=== PATIENT | male | born 1960 | race Caucasian/White ===

== ENCOUNTER 2021-02-20 08:06 | Emergency (ER) | payer OTHER ==
[2021-02-20 08:13] VITALS: TEMP 97.9
[2021-02-20] MEDS ORDERED: ORPHENADRINE 30 MG/ML 2 ML VIAL IVP STA (09:11)
[2021-02-20] MEDS ORDERED: KETOROLAC 15 MG/ML 1 ML VIAL IVP STA (09:11)
--- NOTE | 2021-02-20 09:12 | ED ---
Extremity Problem HPI - General Chief complaint: Extremity Problem,Nontraumatic Stated complaint: shoulder & arm pain Time Seen by Provider: 02/20/21 08:20 Source: patient, RN notes reviewed Mode of arrival: ambulatory Limitations: no limitations - History of Present Illness Initial comments: 60-year-old male presents emergency from chief complaint of neck pain, shoulder pain, back pain. Patient states that started with pain in his left shoulder after lifting something in October. Patient states is more in his scapular region states that radiate towards his neck. Patient states he's gone several chiropractors and appointments along with multiple massages with no relief of symptoms. Patient states that it seems to come and go. Patient states he started noticing further joint aches especially in his knees hips region. Patient states just about some left leg radicular symptoms. Denies any bowel, bladder incontinence or retention of abdominal pain. He states that he is also had some weight loss which is been unintentional last year. He has no abdominal complaints no dysuria no hematuria patient does not see PCP has not had any recent lab work. No chest pain or shortness of breath. - Related Data Previous Rx's Medication Instructions Recorded metFORMIN HCL [Glucophage] 500 mg PO BID #30 tab 02/20/21 Allergies Allergy/AdvReac Type Severity Reaction Status Date / Time azithromycin Allergy Nausea & Verified 02/20/21 08:56 Vomiting Review of Systems ROS Statement: Those systems with pertinent positive or pertinent negative responses have been documented in the HPI. ROS Other: All systems not noted in ROS Statement are negative. Past Medical History Past Medical History: No Reported History History of Any Multi-Drug Resistant Organisms: None Reported Past Surgical History: No Surgical Hx Reported Past Psychological History: No Psychological Hx Reported Smoking Status: Never smoker Past Alcohol Use History: None Reported Past Drug Use History: None Reported General Exam Limitations: no limitations General appearance: alert, in no apparent distress Head exam: Present: atraumatic, normocephalic, normal inspection Eye exam: Present: normal appearance, PERRL, EOMI. Absent: scleral icterus, conjunctival injection, periorbital swelling ENT exam: Present: normal exam, normal oropharynx, mucous membranes moist Neck exam: Present: normal inspection, tenderness (Left paraspinal, trapezius), full ROM. Absent: meningismus, lymphadenopathy Respiratory exam: Present: normal lung sounds bilaterally. Absent: respiratory distress, wheezes, rales, rhonchi, stridor Cardiovascular Exam: Present: regular rate, normal rhythm, normal heart sounds. Absent: systolic murmur, diastolic murmur, rubs, gallop, clicks GI/Abdominal exam: Present: soft, normal bowel sounds. Absent: distended, tenderness, guarding, rebound, rigid Extremities exam: Present: normal inspection, full ROM, normal capillary refill. Absent: tenderness, pedal edema, joint swelling, calf tenderness Back exam: Present: full ROM, tenderness, paraspinal tenderness. Absent: vertebral tenderness Neurological exam: Present: alert, oriented X3, CN II-XII intact, reflexes normal. Absent: motor sensory deficit Skin exam: Present: warm, dry, intact, normal color. Absent: rash Course Vital Signs 02/20/21 02/20/21 08:10 09:33 Temperature 97.9 F Pulse Rate 95 93 Respiratory 16 18 Rate Blood Pressure 181/102 173/93 O2 Sat by Pulse 97 98 Oximetry Medical Decision Making - Medical Decision Making 60-year-old male presented for shoulder neck discomfort. Patient has degenerative changes of the cervical spine and lumbar spine. Patient's found to be new-onset diabetes was started on metformin will follow-up with Dr. Dozier has requested we given Tylenol codeine for 3 days for pain control return parameters were discussed. - Lab Data Result diagrams: 02/20/21 08:53 02/20/21 08:53 Lab Results 02/20/21 02/20/21 Range/Units 08:53 08:53 WBC 6.7 (3.8-10.6) k/uL RBC 5.54 (4.30-5.90) m/uL Hgb 16.8 (13.0-17.5) gm/dL Hct 49.3 (39.0-53.0) % MCV 88.9 (80.0-100.0) fL MCH 30.4 (25.0-35.0) pg MCHC 34.1 (31.0-37.0) g/dL RDW 12.4 (11.5-15.5) % Plt Count 290 (150-450) k/uL MPV 6.5 Neutrophils % 58 % Lymphocytes % 26 % Monocytes % 9 % Eosinophils % 4 % Basophils % 1 % Neutrophils # 3.9 (1.3-7.7) k/uL Lymphocytes # 1.8 (1.0-4.8) k/uL Monocytes # 0.6 (0-1.0) k/uL Eosinophils # 0.3 (0-0.7) k/uL Basophils # 0.1 (0-0.2) k/uL Manual Slide Review Performed Sodium 133 L (137-145) mmol/L Potassium 4.4 (3.5-5.1) mmol/L Chloride 95 L (98-107) mmol/L Carbon Dioxide 29 (22-30) mmol/L Anion Gap 9 mmol/L BUN 13 (9-20) mg/dL Creatinine 0.68 (0.66-1.25) mg/dL Est GFR (CKD-EPI)AfAm >90 (>60 ml/min/1.73 sqM) Est GFR (CKD-EPI)NonAf >90 (>60 ml/min/1.73 sqM) Glucose 343 H (74-99) mg/dL Calcium 10.1 (8.4-10.2) mg/dL Total Bilirubin 1.8 H (0.2-1.3) mg/dL AST 24 (17-59) U/L ALT 24 (4-49) U/L Alkaline Phosphatase 63 (38-126) U/L Total Protein 7.5 (6.3-8.2) g/dL Albumin 5.0 (3.5-5.0) g/dL Lipase 101 (23-300) U/L Disposition Clinical Impression: Cervical radiculopathy, New onset type 2 diabetes mellitus, Hyperglycemia Disposition: HOME SELF-CARE Condition: Stable Instructions (If sedation given, give patient instructions): Type 2 Diabetes in Adults: New Diagnosis (ED), Basic Carbohydrate Counting (DC) Additional Instructions: Please return to the Emergency Department if symptoms worsen or any other concerns. Prescriptions: metFORMIN HCL [Glucophage] 500 mg PO BID #30 tab Is patient prescribed a controlled substance at d/c from ED?: No Referrals: Pedro Dozier MD [STAFF PHYSICIAN] - 1-2 days Rasta Birmingham DO [Doctor of Osteopathic Medicine] - 1-2 days Time of Disposition: 10:11
[2021-02-20 09:15] LABS: Basophils # (A) 0.1 k/uL (0-0.2); Basophils % (A) 1 %; Eosinophils # (A) 0.3 k/uL (0-0.7); Eosinophils % (A) 4 %; HCT 49.3 % (39.0-53.0); HGB 16.8 gm/dL (13.0-17.5); Lymphocytes # (A) 1.8 k/uL (1.0-4.8); Lymphocytes % (A) 26 %; MCH 30.4 pg (25.0-35.0); MCHC 34.1 g/dL (31.0-37.0); MCV 88.9 fL (80.0-100.0); Mean Platelet Volume 6.5; Monocytes # (A) 0.6 k/uL (0-1.0); Monocytes % (A) 9 %; Neutrophils # (A) 3.9 k/uL (1.3-7.7); Neutrophils % (A) 58 %; Platelet Count 290 k/uL (150-450); RBC 5.54 m/uL (4.30-5.90); RDW 12.4 % (11.5-15.5); WBC 6.7 k/uL (3.8-10.6)
--- NOTE | 2021-02-20 09:21 | CT ---
EXAMINATION TYPE: CT cervical spine wo con DATE OF EXAM: 02/20/2021 COMPARISON: None HISTORY: Lt sided neck shoulder pain traveling down leg, no known injury CT DLP: 522.4 mGycm CONTRAST: None CT of the cervical spine is performed in the axial plane at 2 mm thick sections. Reconstructed image s in the coronal, and sagittal plane are reviewed on the computer. No acute fractures are evident. Vertebral body alignment is normal. Degenerative disc change with loss of disc height is present C6-7. Mild diffuse narrowing to the ilana ining disc levels may be present to a minimal degree. Vertebral body heights are preserved. No spinal canal stenosis is evident Mild uncovertebral joint hypertrophy is present C3-4 with mild foraminal narrowing. IMPRESSIONS: 1. Mild uncovertebral joint hypertrophy with mild foraminal narrowing C3-4. 2. Mild diffuse loss disc height most noticeable at C6-7.
[2021-02-20 09:28] LABS: ALT 24 U/L (4-49); AST 24 U/L (17-59); African American GFR (CKD) >90 (>60 ml/min/1.73 sqM); Alkaline Phosphatase 63 U/L (38-126); Anion Gap 9 mmol/L; Blood Urea Nitrogen 13 mg/dL (9-20); Calcium 10.1 mg/dL (8.4-10.2); Carbon Dioxide 29 mmol/L (22-30); Chloride 95 mmol/L (98-107); Glucose 343 mg/dL (74-99); Lipase 101 U/L (23-300); Non-African American GFR(CKD) >90 (>60 ml/min/1.73 sqM); Potassium 4.4 mmol/L (3.5-5.1); Sodium 133 mmol/L (137-145); Total Bilirubin 1.8 mg/dL (0.2-1.3); Total Protein 7.5 g/dL (6.3-8.2)
[2021-02-20 09:34] VITALS: RESP 18
--- NOTE | 2021-02-20 09:35 | XR ---
Obstetricald EXAMINATION TYPE: XR lumbosacral spine min 4V DATE OF EXAM: 02/20/2021 CLINICAL HISTORY: pain COMPARISON: NONE TECHNIQUE: Frontal, lateral, and oblique images of the lumbar spine are obtained. FINDINGS: Grade 1 anterolisthesis L5 on S1 measuring 6.6 mm. Bilateral spondylolysis noted at this level. Moder ate degenerative disc space narrowing. Mild degenerative narrowing at L4-5 and L3-4 as well. No compr ession fracture seen. Scattered spondylosis noted. IMPRESSION: Grade 1 anterolisthesis with spondylolysis at L5-S1.
[2021-02-20] MEDS ORDERED: metFORMIN 500 MG TAB PO STA (10:03)
[2021-02-20] MEDS ORDERED: ACET/COD 300 MG/30 MG STARTER PACK 6 TAB BTL PO STA (10:03)
[2021-02-20] MEDS ORDERED: INSULIN REGULAR 100 UNIT/ML VIAL (IV) IV ONE (10:04)
[2021-02-20 10:19] LABS: Glucose,Whole Blood 279 mg/dL (75-99)
[2021-02-20 10:22] VITALS: BP 158/95; PULSE 70
== END 2021-02-20 10:28 | disposition home or self-care (01) ==
LOC: EC 08:06
DX: M54.12 Radiculopathy, cervical region (principal); E11.65 Type 2 diabetes mellitus with hyperglycemia; Z88.1 Allergy status to other antibiotic agents
CPT/HCPCS: 36415; 80053; 83690; 85025; 86618; 72110; 72125; 99284; 96374; 96375; J2360; J1885

== ENCOUNTER 2024-03-18 18:34 | Inpatient (IN) | payer OTHER ==
[2024-03-19] MEDS ORDERED: TEMAZEPAM 15 MG CAP ONE ×2 (00:38→20:17)
[2024-03-19] MEDS ORDERED: SODIUM CHLORIDE 0.9% 1,000 ML BAG ONE ×3 (08:00→09:30)
[2024-03-19] MEDS ORDERED: MUPIROCIN 2% OINT 22 GM TUBE ONE (08:00)
[2024-03-19] MEDS ORDERED: ATORVASTATIN 80 MG TAB ONE (08:31)
[2024-03-19] MEDS ORDERED: ASPIRIN 325 MG TAB ONE (08:32)
[2024-03-19] MEDS ORDERED: HEPARIN SODIUM 1,000 UN/ML (10ML VL) ONE ×2 (09:17→22:12)
[2024-03-19] MEDS ORDERED: MIDAZOLAM 2 MG/2 ML VIAL ONE (09:17)
[2024-03-19] MEDS ORDERED: fentaNYL (PF) 50 MCG/ML 2 ML AMP ONE (09:17)
[2024-03-19] MEDS ORDERED: HEPARIN SODIUM,PORCINE 10,000 UNIT/ML 1 ML VIAL ONE (09:30)
[2024-03-19] MEDS ORDERED: VERAPAMIL 2.5 MG/ML 4 ML VIAL ONE (09:36)
[2024-03-19] MEDS ORDERED: LIDOCAINE 1% INJ 10MG/ML (20 ML MDV) ONE (09:36)
[2024-03-19] MEDS ORDERED: SODIUM CHLORIDE 0.9% 250 ML BAG ONE (09:36)
[2024-03-19] MEDS ORDERED: HEPARIN SODIUM,PORCINE 5,000 UNIT/ML 1 ML VIAL ONE (09:36)
[2024-03-19] MEDS: IOPAMIDOL-370 100ML BTL INJ ONE (09:48)
[2024-03-19] MEDS ORDERED: METOPROLOL TARTRATE 25 MG TAB ONE ×2 (13:58→20:17)
[2024-03-19] MEDS ORDERED: HEPARIN SOD,PORK IN 0.45% NACL 250 ML IV ONE (13:58)
[2024-03-19] MEDS ORDERED: ATORVASTATIN 40 MG TAB ONE (20:17)
[2024-03-20] MEDS ORDERED: ASPIRIN 81 MG ONE (09:31)
[2024-03-20] MEDS ORDERED: METOPROLOL TARTRATE 25 MG TAB ONE ×2 (09:31→20:46)
[2024-03-20] MEDS ORDERED: HEPARIN SOD,PORK IN 0.45% NACL 250 ML IV ONE (09:38)
[2024-03-20] MEDS ORDERED: TEMAZEPAM 15 MG CAP ONE (20:46)
[2024-03-20] MEDS ORDERED: SODIUM CHLORIDE 0.9% 1,000 ML BAG ONE (23:59)
[2024-03-21] MEDS ORDERED: HEPARIN SODIUM 1,000 UN/ML (10ML VL) IV PRN
[2024-03-21] MEDS ORDERED: SENNOSIDES 8.6 MG TAB PO PRN
[2024-03-21 04:57] LABS: Glucose,Whole Blood 101 mg/dL (70-110)
[2024-03-21] MEDS ORDERED: PROTAMINE SULFATE 10 MG/ML 25 ML VIAL IV ONE (05:00)
[2024-03-21] MEDS ORDERED: HEPARIN SODIUM 1,000 UN/ML (10ML VL) IV ONE (05:00)
[2024-03-21] MEDS ORDERED: CLEVIDIPINE BUTYRATE 25 MG in EMPTY BAG 1 BAG IV ONE (05:00)
[2024-03-21] MEDS ORDERED: SODIUM BICARB 8.4% 50 ML SYR (1 MEQ/ML) IV ONE (05:00)
[2024-03-21] MEDS ORDERED: PHENYLEPHRINE 10 MG/ML VIAL IV ONE (05:00)
[2024-03-21] MEDS ORDERED: PHENYLEPHRINE 40 MG in SODIUM CHLORIDE 0.9% 250 ML IV ONE (05:00)
[2024-03-21] MEDS ORDERED: ALBUMIN HUMAN 5% 500 ML IVPB ONE (05:00)
[2024-03-21] MEDS ORDERED: propofoL 1,000 MG/100 ML VIAL IV ONE (05:00)
[2024-03-21] MEDS ORDERED: CARDIOPLEGIC SOLN (K+ 16 MEQ/L 1,000 ML with SODIUM BICARB (1 MEQ/ML) 20 ML, LIDOCAINE ... PERFUSION ONE (05:00)
[2024-03-21] MEDS ORDERED: NITROGLYCERIN SL TABS 0.4 MG TAB SUBLINGUAL ONE (05:00)
[2024-03-21] MEDS ORDERED: PROTAMINE SULFATE 250 MG in EMPTY BAG 1 BAG IV ONE (05:00)
[2024-03-21] MEDS ORDERED: MAGNESIUM SULFATE 16.24 MEQ in EMPTY SYRINGE 1 SYR IV ONE (05:00)
[2024-03-21] MEDS ORDERED: LACTATED RINGERS 1,000 ML IV ONE (05:00)
[2024-03-21] MEDS ORDERED: TRANEXAMIC ACID 2,000 MG in SODIUM CHLORIDE 0.9% 80 ML IV ONE (05:00)
[2024-03-21] MEDS ORDERED: NOREPINEPHRINE 4 MG in SODIUM CHLORIDE 0.9% 250 ML IV ONE (05:00)
[2024-03-21] MEDS ORDERED: NITROGLYCERIN-D5W PMX 25 MG/250 ML BTL IV ONE (05:00)
[2024-03-21] MEDS ORDERED: ALBUMIN HUMAN 25% 50 ML IV ONE (05:00)
[2024-03-21] MEDS ORDERED: INSULIN REGULAR 100 UNIT in SODIUM CHLORIDE 0.9% 100 ML IV ONE (05:00)
[2024-03-21] MEDS ORDERED: NITROGLYCERIN-D5W PMX 50 MG in DEXTROSE/WATER 1 250ML.BAG IV ONE (05:00)
[2024-03-21] MEDS ORDERED: SODIUM CHLORIDE 0.9% 1,000 ML IV ONE (05:00)
[2024-03-21] MEDS ORDERED: CHLORHEXIDINE GLUCONATE 15 ML CUP MUCOUS MEM ONE (05:00)
[2024-03-21] MEDS ORDERED: CALCIUM CHLORIDE 100 MG/ML 10 ML SYRINGE IV ONE (05:00)
[2024-03-21] MEDS ORDERED: MANNITOL 25% 12.5 GM/50 ML VIAL IV ONE (05:00)
[2024-03-21] MEDS: METOPROLOL TARTRATE 12.5 MG TAB PO ONE (05:06)
[2024-03-21] MEDS: ASPIRIN 325 MG TAB PO ONE (05:06)
[2024-03-21] MEDS: ATORVASTATIN 10 MG TAB PO ONE (05:06)
[2024-03-21] MEDS: SODIUM CHLORIDE 0.9% 1,000 ML IV SCH ×2 (05:07→13:20)
[2024-03-21] MEDS: HEPARIN SOD,PORK IN 0.45% NACL 25,000 UNIT in 0.45% NACL 1 250ML.BAG IV SCH (05:25)
[2024-03-21] MEDS: INSULIN ASPART (NovoLOG) 100 UNIT/ML VIAL SQ SCH (05:27)
[2024-03-21] MEDS: ASPIRIN 81 MG PO SCH (05:28)
[2024-03-21] MEDS: METOPROLOL TARTRATE 25 MG TAB PO SCH (05:28)
[2024-03-21] MEDS: MUPIROCIN 2% OINT 22 GM TUBE NASAL SCH ×2 (05:45→21:18)
[2024-03-21] MEDS ORDERED: LACTATED RINGERS 1,000 ML BAG ONE ×2 (08:15)
[2024-03-21] MEDS ORDERED: SODIUM CHLORIDE 0.9% 50 ML BAG ONE (08:15)
[2024-03-21] MEDS ORDERED: ceFAZolin 10 GM VIAL IVPB ONE (08:15)
--- NOTE | 2024-03-21 08:47 | P.ANPRN ---
Procedure Note - Anesthesia - Invasive Line Right Arterial Line Time Out Performed: Yes Date of Procedure: 03/21/24 Time of Procedure: 07:30 Location of Patient: PreOp Preparation: Sterile Prep Arterial Line Location: Radial Ultrasound Used: No Narrative: Invasive line placement per sterile protocol utilized by GOVERNMENT PROPERTY INSPECTOR Right Central Line Time Out Performed: Yes Date of Procedure: 03/21/24 Time of Procedure: 07:30 Location of Patient: PreOp Preparation: Sterile Prep, Sterile Dressing Central Line Location: Internal Jugular Ultrasound Used: Yes Purpose - Visualization and Identification of Vasculature: Yes Needle Guage: 18 Image Stored and Saved: Yes Narrative: Invasive line placement per sterile protocol utilized. Seldinger technique Right [place] Jim Time Out Performed: Yes Date of Procedure: 03/21/24 Time of Procedure: 07:45 Location of Patient: PreOp Preparation: Sterile Prep, Sterile Dressing [place] Jim Line Location: Internal Jugular Ultrasound Used: No Narrative: All ports flushed and balloon tested. [place] advanced until RV and then PA waveforms obtained. Balloon deflated and [place] secured at 45 cm
[2024-03-21] MEDS: PAPAVERINE 360 MG in SODIUM CHLORIDE 0.9% 90 ML IV ONE (09:02)
[2024-03-21] MEDS: HEPARIN SODIUM,PORCINE (1 ML) 5,000 UNIT in SODIUM CHLORIDE 0.9% 500 ML 500 ML IV ONE (09:02)
[2024-03-21] MEDS: DILTIAZEM 125 MG in SODIUM CHLORIDE 0.9% 100 ML IV ONE (09:02)
[2024-03-21] MEDS: ceFAZolin 1,000 MG in SODIUM CHLORIDE 0.9% IRRIGATIO 1,000 ML IRRIGATION ONE (09:03)
--- NOTE | 2024-03-21 11:42 | P.ANPRN ---
Procedure Note - Anesthesia - SUMAYA Intraop Pre Bypass SUMAYA Intraop - Anesthesia Indication: CAD Date of Procedure: 03/21/24 Pre-operative Diagnosis: CAD Post-operative Diagnosis: Same Surgeon: Donald Kothari Left Ventricle: EF 45% Regional Wall Motion Abnormalities: Other (Inferior wall hypokinesis) Left Ventricle Hypertrophy: No R. Ventricle Function: Normal Anatomy: Trileaflet Aortic Stenosis: None Aortic Regurgitation: None Mitral Stenosis: None Mitral Regurgitation: None Tricuspid Stenosis: None Tricuspid Regurgitation: None Pulmonic Stenosis: None Pulmonic Regurgitation: None R. Atrial Dilation: No R. Atrial PFO: No L. Atrial Dilation: No Aortic Dissection: No Aortic Calcification: None Plural Effusion: None - SUMAYA Intraop Post Bypass SUMAYA Intraop Post Bypass Procedure Performed: OP CABG, LA appendage ligation Ejection Fraction: Normal Regional Wall Motion Abnormalities: Other (Inferior wall hypokinesis) R. Ventricle Function: Normal Aortic Valve: Unchanged Mitral Valve: Unchanged Tricuspid: Unchanged Pulmonic: Unchanged Aortic Dissection: No (LA appendage ligated)
--- NOTE | 2024-03-21 12:13 | P.OP ---
Date of Procedure: 03/21/24 Preoperative Diagnosis: Coronary artery disease, unstable angina Postoperative Diagnosis: Same Procedure(s) Performed: Off-pump CABG x 4 with LAWRENCE to LAD, sequential left radial artery to first and second obtuse marginal coronary arteries, SVG to PDA with endovascular left radial artery harvest and endovascular harvest of the left greater saphenous vein from the left thigh. Clip left atrial appendage 35 mm AtriCure clip Implants: 35 mm AtriCure clip Anesthesia: GETA Surgeon: Donald Kothari Utilities Operator #1: Manny Allan Utilities Operator #2: Cipriano Roman Estimated Blood Loss (ml): 300 IV fluids (ml): 2,000 Urine output (ml): 500 Pathology: none sent Condition: stable Disposition: ICU Indications for Procedure: 63-year-old male who gives a history of exertional dyspnea and fatigue lasting over a year and slowly worsening. He has also had significant fatigue in his lower extremities causing him to have to significantly decrease his activity. The symptoms have been worsening. He presented to the emergency department complaining of fatigue as well as feeling irregular heartbeats. He was noted to have multiple PVCs. He underwent cardiac catheterization demonstrating severe three-vessel coronary artery disease. Coronary artery bypass grafting was recommended by Dr. Cook. Informed consent was obtained and urgent surgery scheduled. Operative Findings: Saphenous vein, radial artery and internal mammary artery well are all excellent conduits. There was diffuse coronary disease present. Left ventricle had reasonable ejection fraction and it was relatively small in size with some inferior wall hypokinesis. This persisted following revascularization. Description of Procedure: Patient was brought to the operating room and placed supine on the operating table. General anesthesia was induced. Preoperative monitoring lines have been placed in the preoperative holding area. SUMAYA probe was placed. The anterior torso bilateral lower extremities and left upper extremity were sterilely prepped and draped. Left greater saphenous vein was harvested from the left thigh using endovascular vein harvest technique. Simultaneously, the left radial artery was harvested using endovascular technique. Both conduits were prepared on the back table. Simultaneous to the arm and leg conduit harvest a midline sternotomy was performed and the left hemisternum retracted upwards. The left internal mammary artery was harvested on a vascularized pedicle and left intact on its origin from the subclavian. It was divided distally. He had an excellent pulse. Left pleural space was drained with a 32 Danish chest tube. Standard sternal retractor was placed. The pericardium was opened in the midline. Heart was exposed with pericardial sutures. Patient was systemically heparinized and ACT is maintained greater than 250 during grafting. 35 mm AtriCure clip was applied to the base of the left atrial appendage. The LAWRENCE was tunneled into the pericardial space and the LAD was grafted in its midportion. The LAD was opened and blood flow controlled with a 2 mm flow- through. It was a 2 to 2-1/2 mm vessel. End-to-side anastomosis between the LAWRENCE and the LAD was performed with running 8-0 Prolene suture. On completion the anastomosis the flow through was removed effective probing the proximal distal portion of the anastomosis. Inflow was opened. The LAWRENCE lay well with excellent length and the poe filled out well with no kinking. VICTOR HUGO pedicle was tacked surrounding epicardium with 6-0 silk suture. The inferior wall of the heart was exposed. PDA was dissected out proximally. It was a 2 mm vessel of good quality. It was opened and blood flow controlled with a 2 mm flow-through. End-to-side anastomosis between saphenous vein and PDA was performed with running 7-0 Prolene suture. On completion of the anastomosis the flow through was removed effectively probing the proximal distal portion of the anastomosis. Suture was tied in good result and hemostasis was noted. Good backbleeding was noted to the first valve. Heart was lowered in anatomic position. The vein was cut to appropriate length to reach the ascending aorta. Heartstring device was deployed in the mid ascending aorta to the right of midline. Proximal anastomosis of the saphenous vein off the aorta was performed with running 5-0 Prolene suture. On completion anastomosis the heartstring device was removed and the suture tied with good result and hemostasis. The vein graft was de- aired with needle holes and then the inflow open. Next the lateral wall of the heart was exposed. First and second obtuse marginal coronary arteries were identified. The second was stabilized first. It was opened fairly proximally. It was a 1.5 to 1.75 mm vessel. It had some diffuse wall disease present. Blood flow was controlled with a 1.5 mm flow-through in the radial artery was anastomosed in end-to-side fashion with running 7-0 Prolene suture. On completion of the anastomosis the flow through was removed effectively probing the proximal distal portion of the anastomosis. Suture was tied with good result and hemostasis. A bulldog clamp was placed on the radial graft distally and the first obtuse marginal was stabilized and opened proximally. It was again a 1.75 mm vessel. It was had less wall disease than the second obtuse marginal coronary artery. Blood flow was controlled with a 1.5 mm flow-through. Dahf-mm-gtao anastomosis between the radial artery and the first obtuse dorothea nal was performed with running 7-0 Prolene suture. On completion of the anastomosis the flow through was removed effectively probing the proximal distal portion of the anastomosis. Suture was tied with good result and hemostasis. Heart was lowered in anatomic position. The radial artery was of sufficient length to reach the ascending aorta. It was trimmed appropriately and brought beneath the LAWRENCE. Second heartstring device was deployed in the mid ascending aorta to the left of midline. Second proximal anastomosis was constructed with running 5-0 Prolene suture. On completion of the anastomosis the heartstring was removed and the suture tied with good result and hemostasis. Inflow was opened to the radial artery graft. All distal anastomoses were checked and noted to be hemostatic. Heparin was reversed with protamine. Good hemostasis was obtained throughout. Chest was irrigated with antibiotic solution and drained with a 36 Danish chest tube. Sternum was closed with 8 sternal wires. Fascia was closed with 0 Ethibond. Subcutaneous and subcuticular layers and the arm leg and chest were all closed with layers of Vicryl suture. Skin glue and dry sterile dressings were applied and the patient was transferred to the ICU in stable condition. He required no inotropic support and no blood transfusions.
[2024-03-21 12:27] LABS: Glucose,Whole Blood 106 mg/dL (70-110)
[2024-03-21] MEDS ORDERED: DEXTROSE 50% SYRINGE 50 ML IVP PRN ×4 (12:42)
[2024-03-21] MEDS ORDERED: Magnesium Replacement Protocol 1 EACH MISC MISCELLANE PRN (12:42)
[2024-03-21] MEDS ORDERED: Phosphorus Replacement Protoco 1 EACH MISC MISCELLANE PRN (12:42)
[2024-03-21] MEDS ORDERED: IPRATROPIUM-ALBUTEROL 3 ML NEB INHALATION PRN (12:42)
[2024-03-21] MEDS ORDERED: AMIODARONE 360 MG in DEXTROSE 5% IN WATER 200 ML IV PRN (12:42)
[2024-03-21] MEDS ORDERED: CALCIUM GLUCONATE IN NACL 2 GM in SALINE 1 100ML.BAG IVPB PRN (12:42)
[2024-03-21] MEDS ORDERED: Potassium Replacement Protocol 1 EACH MISC MISCELLANE PRN (12:42)
[2024-03-21] MEDS ORDERED: DEXTROSE 5% IN WATER 100 ML with AMIODARONE 150 MG IV PRN (12:42)
[2024-03-21] MEDS ORDERED: BENZOCAINE/MENTHOL LOZENG 1 EACH LOZENGE MUCOUS MEM PRN (12:42)
[2024-03-21] MEDS ORDERED: METOCLOPRAMIDE 5 MG/ML 2 ML VIAL IVP PRN (12:42)
[2024-03-21] MEDS ORDERED: AMIODARONE 450 MG in DEXTROSE 5% IN WATER 250 ML IV PRN (12:42)
[2024-03-21 13:05] LABS: ABG Base Excess -0.2 mmol/L; ABG HCO3 25 mmol/L (21-25); ABG Oxygen Saturation 100.5 % (94-97); ABG PCO2 42 mmHg (35-45); ABG PH 7.38 (7.35-7.45); ABG PO2 366 mmHg (83-108); ABG TCO2 26 mmol/L (19-24); Allen Test Performed? Yes
[2024-03-21] MEDS: DEXMEDETOMIDINE/0.9% NACL(PMX) 400 MCG in EMPTY BAG 1 BAG IV SCH (13:05)
[2024-03-21] MEDS: NITROGLYCERIN-D5W PMX 50 MG in DEXTROSE/WATER 1 250ML.BAG IV SCH (13:13)
[2024-03-21 13:17] LABS: Basophils % (A) 0 %; Eosinophils # (A) 0.1 k/uL (0-0.7); Eosinophils % (A) 1 %; HCT 36.3 % (39.0-53.0); HGB 12.2 gm/dL (13.0-17.5); Lymphocytes # (A) 1.2 k/uL (1.0-4.8); Lymphocytes % (A) 11 %; MCH 30.5 pg (25.0-35.0); MCHC 33.7 g/dL (31.0-37.0); MCV 90.6 fL (80.0-100.0); Monocytes # (A) 0.8 k/uL (0-1.0); Monocytes % (A) 7 %; Neutrophils # (A) 9.2 k/uL (1.3-7.7); Neutrophils % (A) 81 %; Platelet Count 207 k/uL (150-450); RBC 4.01 m/uL (4.30-5.90); RDW 13.2 % (11.5-15.5); WBC 11.3 k/uL (3.8-10.6)
[2024-03-21 13:19] LABS: ALT 12 U/L (4-49); AST 22 U/L (17-59); African American GFR (CKD) >90 (>60 ml/min/1.73 sqM); Albumin 2.8 g/dL (3.5-5.0); Alkaline Phosphatase 46 U/L (38-126); Anion Gap 7 mmol/L; Blood Urea Nitrogen 14 mg/dL (9-20); Calcium 8.5 mg/dL (8.4-10.2); Carbon Dioxide 22 mmol/L (22-30); Chloride 107 mmol/L (98-107); Glucose 104 mg/dL (74-99); Magnesium 1.7 mg/dL (1.6-2.3); Non-African American GFR(CKD) >90 (>60 ml/min/1.73 sqM); Potassium 3.9 mmol/L (3.5-5.1); Sodium 136 mmol/L (137-145); Total Bilirubin 1.1 mg/dL (0.2-1.3); Total Protein 4.7 g/dL (6.3-8.2)
[2024-03-21] MEDS: ACETAMINOPHEN IV (For NPO) 1,000 MG in EMPTY BAG 1 BAG IVPB SCH (13:20)
[2024-03-21] MEDS: DILTIAZEM 125 MG in SODIUM CHLORIDE 0.9% 100 ML IV SCH (13:25)
[2024-03-21 13:29] LABS: INR 1.1 (<1.2); Prothrombin Time 12.2 sec (10.0-12.5)
--- NOTE | 2024-03-21 13:31 | P.PN ---
Subjective Progress Note Date: 03/21/24 The patient is seen today March 21, 2024 in follow-up in the intensive care unit. He is status post off-pump coronary artery bypass grafting x 4 with a LAWRENCE to the LAD, left radial artery sequential to the OM1 and OM 2, SVG to the PDA. He is intubated on the mechanical ventilator and assist-control mode at a rate of 14, tidal volume 500, FiO2 50% and a PEEP of 5. Arterial blood gases revealed a PaO2 of 366, pCO2 42 and a pH of 7.38 on 100% FiO2. He has a right IJ [place]-Jim catheter in place. Cardiac output 5.9. Cardiac index 2.8. PA pressure 23/16, CVP of 9. Chest x-ray reveals atelectatic changes in the bases. Mediastinal and left chest tubes are secured in place. He is currently on Pr ecedex at 0.4 mcg/kg/h. Propofol at 40 mcg/kg/min. Cardizem drip at 5 mg/h. Nitroglycerin drip at 5 mcg/min. Normal saline 0.9% at 50 mL/h. Heparin for DVT prophylaxis. White count 11.3. Hemoglobin 12.2. Platelets 207. Sodium 136. Potassium 3.9. Bicarb 22. BUN 14. Creatinine 0.68. Glucose 106. Objective - Vital Signs Vital signs: Vital Signs Temp 97.7 F 03/21/24 04:55 Pulse 62 03/21/24 04:55 Resp 18 03/21/24 04:55 BP 115/73 03/21/24 04:55 Pulse Ox 99 03/21/24 04:55 FiO2 50 03/21/24 13:09 Intake & Output 03/20/24 03/21/24 03/21/24 18:59 06:59 18:59 Intake Total 55.149 Output Total 700 Balance -644.851 Weight 87.997 kg 86.2 kg Intake: IV 54 Intake, IV Titration 1.149 Amount Dexmedetomidine/0.9% NaCl 1.149 (Pmx) 400 mcg In Empty Bag 1 bag @ Titrate IV . [facility] Rx#:[id number] Output: Urine 400 Estimated Blood Loss 300 - Exam GENERAL EXAM: Intubated, sedated 63-year-old male patient, comfortable in no apparent distress. HEAD: Normocephalic. EYES: Sluggish reaction of pupils, equal size. NOSE: Clear with pink turbinates. THROAT: Oral endotracheal and gastric tube secured in place. No erythema or exudates. NECK: Right IJ [place]-Jim catheter in place. No masses, no JVD. CHEST: Sternal dressing dry and intact. Mediastinal and left chest tubes in pl ignacio. LUNGS: Equal air entry with no crackles, wheeze, rhonchi or dullness. CVS: S1 and S2 normal with no audible murmur, regular rhythm. ABDOMEN: No hepatosplenomegaly, no guarding or rigidity. SPINE: No scoliosis or deformity SKIN: No rashes CENTRAL NERVOUS SYSTEM: No focal deficits, tone is normal in all 4 extremities. EXTREMITIES: Left upper extremity in Ignacio wrap. AARON drain in place. Right radial arterial line in place. Wraps to the bilateral lower extremities. No clubbing, no cyanosis. Peripheral pulses are intact. - Labs CBC & Chem 7: 03/21/24 12:25 03/21/24 12:25 Labs: Abnormal Lab Results - Last 24 Hours (Table) 03/20/24 03/21/24 03/21/24 Range/Units 05:57 03:30 12:25 WBC 11.3 H (3.8-10.6) k/uL RBC 4.01 L (4.30-5.90) m/uL Hgb 12.2 L (13.0-17.5) gm/dL Hct 36.3 L (39.0-53.0) % Neutrophils # 9.2 H (1.3-7.7) k/uL APTT 50.1 H (22.0-30.0) sec ABG pO2 (83-108) mmHg ABG Total CO2 (19-24) mmol/L ABG O2 Saturation (94-97) % Sodium (137-145) mmol/L Glucose (74-99) mg/dL Total Protein (6.3-8.2) g/dL Albumin (3.5-5.0) g/dL Crossmatch See Detail 03/21/24 03/21/24 Range/Units 12:25 12:57 WBC (3.8-10.6) k/uL RBC (4.30-5.90) m/uL Hgb (13.0-17.5) gm/dL Hct (39.0-53.0) % Neutrophils # (1.3-7.7) k/uL APTT (22.0-30.0) sec ABG pO2 366 H (83-108) mmHg ABG Total CO2 26 H (19-24) mmol/L ABG O2 Saturation 100.5 H (94-97) % Sodium 136 L (137-145) mmol/L Glucose 104 H (74-99) mg/dL Total Protein 4.7 L (6.3-8.2) g/dL Albumin 2.8 L (3.5-5.0) g/dL Crossmatch Assessment and Plan Assessment: Triple-vessel coronary artery disease status post coronary artery bypass grafting x 4 utilizing a LAWRENCE to the LAD, left radial arterial graft to the OM1 and OM 2, SVG to the PDA. Postoperative day #0 Mechanical ventilation management, expected outcome of surgery Diabetes mellitus, type II Peripheral neuropathy Remote history of alcoholism, quit in 2007 Non-smoker, FEV1 value within normal limits Plan: The patient was seen and evaluated Chest x-ray, labs, ABGs and medications reviewed Ventilator settings adjusted accordingly Will plan for early extubation protocol as tolerated We will continue to follow and make further recommendations based on his clinical status I have personally seen and examined the patient, performed the documentation and the assessment and plan as written. Number of minutes spent on the visit: 15.
[2024-03-21 13:51] LABS: Glucose,Whole Blood 113 mg/dL (70-110)
--- NOTE | 2024-03-21 14:00 | XR ---
EXAMINATION TYPE: XR chest 1V portable DATE OF EXAM: 03/21/2024 Comparison: 03/18/2024 Clinical History: 63-year-old male Post Operative Cardiac Surgery Findings: ET and NG tube are satisfactory. Right IJ [place]-Jim catheter tip at the right hilum. Median sternotom y wires with post-CABG clips. Mediastinal drain and left-sided chest tube in place. No appreciable pn eumothorax. There is patchy perihilar and retrocardiac opacity present. No sizable pleural effusion. Heart mildly enlarged. Impression: Post-CABG changes. Mild cardiomegaly. Left perihilar and left retrocardiac density could represent pa tchy postoperative atelectasis or asymmetric pulmonary vascular congestion.
[2024-03-21] MEDS: ALBUMIN HUMAN 5% 250 ML in EMPTY BAG 1 BAG IVPB PRN (14:39)
[2024-03-21] MEDS: CLEVIDIPINE BUTYRATE 25 MG in EMPTY BAG 1 BAG IV SCH (14:41)
[2024-03-21 15:04] LABS: Glucose,Whole Blood 122 mg/dL (70-110)
[2024-03-21 15:50] LABS: ABG Base Excess -1.2 mmol/L; ABG HCO3 25 mmol/L (21-25); ABG Oxygen Saturation 98.3 % (94-97); ABG PCO2 45 mmHg (35-45); ABG PH 7.35 (7.35-7.45); ABG PO2 104 mmHg (83-108); ABG TCO2 26 mmol/L (19-24); Allen Test Performed? Yes
[2024-03-21] MEDS: IPRATROPIUM-ALBUTEROL 3 ML NEB INHALATION SCH (16:03)
[2024-03-21 16:04] LABS: Glucose,Whole Blood 147 mg/dL (70-110)
[2024-03-21] MEDS: INSULIN REGULAR 100 UNIT in SODIUM CHLORIDE 0.9% 100 ML IV SCH (16:15)
[2024-03-21 16:54] LABS: Glucose,Whole Blood 139 mg/dL (70-110)
[2024-03-21 17:49] LABS: Glucose,Whole Blood 140 mg/dL (70-110)
[2024-03-21] MEDS: HEPARIN SODIUM,PORCINE 5,000 UNIT/ML 1 ML VIAL SQ SCH (17:53)
[2024-03-21 18:15] LABS: Basophils % (A) 0 %; Eosinophils % (A) 0 %; HCT 35.4 % (39.0-53.0); HGB 11.9 gm/dL (13.0-17.5); Lymphocytes # (A) 0.6 k/uL (1.0-4.8); Lymphocytes % (A) 5 %; MCH 30.1 pg (25.0-35.0); MCHC 33.7 g/dL (31.0-37.0); MCV 89.4 fL (80.0-100.0); Mean Platelet Volume 6.7; Monocytes # (A) 0.9 k/uL (0-1.0); Monocytes % (A) 7 %; Neutrophils # (A) 11.3 k/uL (1.3-7.7); Neutrophils % (A) 88 %; Platelet Count 225 k/uL (150-450); RBC 3.96 m/uL (4.30-5.90); RDW 12.9 % (11.5-15.5); WBC 12.9 k/uL (3.8-10.6)
[2024-03-21] MEDS: MAGNESIUM SULFATE-D5W PMX 1 GM in DEXTROSE/WATER 1 100ML.BAG IVPB ONE (18:41)
[2024-03-21] MEDS: POTASSIUM CHLORIDE 10 MEQ in WATER FOR INJECTION 1 100ML.BAG IVPB SCH (18:42)
[2024-03-21 19:01] LABS: Glucose,Whole Blood 129 mg/dL (70-110)
[2024-03-21 20:07] LABS: Glucose,Whole Blood 139 mg/dL (70-110)
[2024-03-21 20:15] LABS: Basophils % (A) 0 %; Eosinophils % (A) 0 %; HCT 36.5 % (39.0-53.0); HGB 12.2 gm/dL (13.0-17.5); Lymphocytes # (A) 0.4 k/uL (1.0-4.8); Lymphocytes % (A) 3 %; MCH 29.7 pg (25.0-35.0); MCHC 33.4 g/dL (31.0-37.0); MCV 88.9 fL (80.0-100.0); Mean Platelet Volume 6.6; Monocytes # (A) 0.9 k/uL (0-1.0); Monocytes % (A) 7 %; Neutrophils # (A) 11.5 k/uL (1.3-7.7); Neutrophils % (A) 90 %; Platelet Count 234 k/uL (150-450); RBC 4.11 m/uL (4.30-5.90); RDW 12.8 % (11.5-15.5); WBC 12.8 k/uL (3.8-10.6)
[2024-03-21] MEDS ORDERED: ATORVASTATIN 40 MG TAB PO SCH (21:00)
[2024-03-21] MEDS ORDERED: TEMAZEPAM 15 MG CAP PO SCH (21:00)
[2024-03-21 21:12] LABS: Glucose,Whole Blood 142 mg/dL (70-110)
[2024-03-21 21:57] LABS: Glucose,Whole Blood 142 mg/dL (70-110)
[2024-03-21 22:59] LABS: Glucose,Whole Blood 133 mg/dL (70-110)
[2024-03-21] MEDS: KETOROLAC 15 MG/ML 1 ML VIAL IVP STA (23:09)
[2024-03-21 23:59] LABS: Glucose,Whole Blood 118 mg/dL (70-110)
[2024-03-22 01:06] LABS: Glucose,Whole Blood 114 mg/dL (70-110)
[2024-03-22 02:02] LABS: Glucose,Whole Blood 122 mg/dL (70-110)
[2024-03-22 03:01] LABS: Glucose,Whole Blood 127 mg/dL (70-110)
[2024-03-22 04:14] LABS: Glucose,Whole Blood 123 mg/dL (70-110)
[2024-03-22 04:29] LABS: Ionized Calcium 4.6 mg/dL (4.5-5.3)
[2024-03-22 04:38] LABS: ALT 13 U/L (4-49); AST 25 U/L (17-59); African American GFR (CKD) >90 (>60 ml/min/1.73 sqM); Albumin 3.3 g/dL (3.5-5.0); Alkaline Phosphatase 40 U/L (38-126); Anion Gap 7 mmol/L; Blood Urea Nitrogen 13 mg/dL (9-20); Calcium 8.2 mg/dL (8.4-10.2); Carbon Dioxide 23 mmol/L (22-30); Chloride 102 mmol/L (98-107); Glucose 115 mg/dL (74-99); Magnesium 1.6 mg/dL (1.6-2.3); Non-African American GFR(CKD) >90 (>60 ml/min/1.73 sqM); Potassium 4.1 mmol/L (3.5-5.1); Sodium 132 mmol/L (137-145); Total Bilirubin 1.8 mg/dL (0.2-1.3); Total Protein 5.1 g/dL (6.3-8.2)
[2024-03-22 05:07] LABS: Glucose,Whole Blood 117 mg/dL (70-110)
[2024-03-22] MEDS: MAGNESIUM SULFATE-D5W PMX 1 GM in DEXTROSE/WATER 1 100ML.BAG IVPB SCH (05:14)
[2024-03-22 05:25] LABS: Basophils % (A) 0 %; Eosinophils % (A) 0 %; HCT 33.7 % (39.0-53.0); HGB 11.5 gm/dL (13.0-17.5); Lymphocytes # (A) 0.9 k/uL (1.0-4.8); Lymphocytes % (A) 7 %; MCH 30.6 pg (25.0-35.0); MCHC 34.1 g/dL (31.0-37.0); MCV 89.9 fL (80.0-100.0); Mean Platelet Volume 7.2; Monocytes # (A) 1.1 k/uL (0-1.0); Monocytes % (A) 9 %; Neutrophils # (A) 10.8 k/uL (1.3-7.7); Neutrophils % (A) 84 %; Platelet Count 247 k/uL (150-450); RBC 3.75 m/uL (4.30-5.90); RDW 13.3 % (11.5-15.5); WBC 12.9 k/uL (3.8-10.6)
[2024-03-22] MEDS: ONDANSETRON 4 MG/2 ML VIAL IVP PRN (05:51)
[2024-03-22 07:01] LABS: Glucose,Whole Blood 149 mg/dL (70-110)
[2024-03-22] MEDS: KETOROLAC 15 MG/ML 1 ML VIAL IVP SCH (07:11)
--- NOTE | 2024-03-22 07:24 | XR ---
EXAMINATION TYPE: XR chest 1V portable DATE OF EXAM: 03/22/2024 Comparison: 03/21/2024 Clinical History: 63-year-old male Post Operative Cardiac Surgery Findings: Interval extubation and removal of NG tube. Median sternotomy wires and post-CABG clips. Right IJ [place]-Jim catheter remains in place, tip in the proximal right main pulmonary artery region. Mediastinal drain and left-sided chest tube. No appreciable pneumothorax. Mild cardiomegaly with mild interstiti al density and patchy retrocardiac opacity remains. Impression: Residual mild pulmonary vascular congestion. Interval extubation.
--- NOTE | 2024-03-22 08:04 | P.PN ---
Subjective Progress Note Date: 03/22/24 Principal diagnosis: Multivessel coronary artery disease, unstable angina. Past medical history significant for hyperlipidemia, diabetes mellitus type 2 noncompliant with taking medications hemoglobin A1c from November 2023 7.7%, remote history of EtOH abuse, quit drinking in 2007, occasional marijuana use, insomnia, peripheral neuropathy, and is a lifetime non-smoker. POD #1 Off-pump CABG x 4 with left internal mammary artery to left anterior descending coronary artery, sequential left radial artery to first and second obtuse marginal coronary arteries, saphenous vein graft to posterior descending coronary artery, with endovascular left radial artery harvest and endovascular harvest of the left greater saphenous vein from the left thigh. Clip left atrial appendage 35 mm AtriCure clip. Postoperative acute blood loss anemia, expected given hemodilution. The patient was seen and examined in follow-up today March 22, 2024 at his bedside in the intensive care unit. He was successfully extubated at 4:15 PM yesterday 03/21/2024, is currently sitting up to the bedside chair, is awake, alert, oriented x 3 and is in no acute apparent distress. Oxygen saturations are 96% on room air and he is achieving 1000 mL on his incentive spirometry with encouragement. Chest x-ray results reviewed. He denies any complaints of shortness of breath at this time, and reports that his pain is well-controlled on the current pain medication regimen. Currently rating his pain 3-4 out of 10 on the pain scale. Cardizem drip remains infusing at 5 mg/h for radial artery spasm prophylaxis. Nitroglycerin drip is running at 5 mcg/min. Right IJ cordis and Wautoma-Jim catheter remains in place with current hemodynamics showing a cardiac output of 5.2, cardiac index 2.5, PA pressure 17/8 and CVP 2 mmHg. Left pleural and mediastinal chest tubes remain in place to low continuous wall suction -20 cm of H2O. No air leak is present. Draining thin serosanguineous drainage. Mediastinal chest tube drained 130 mL output in the last 8 hours and 650 mL since surgery. Left pleural chest tube drained 210 mL output in the last 8 hours and 350 mL output since surgery. Laboratory results reviewed. Objective - Vital Signs Vital signs: Vital Signs Temp 98.8 F 03/22/24 04:00 Pulse 80 03/22/24 06:00 Resp 14 03/22/24 06:00 BP 96/53 03/22/24 06:00 Pulse Ox 96 03/22/24 05:30 FiO2 40 03/21/24 15:21 Intake & Output 03/21/24 03/22/24 03/22/24 18:59 06:59 18:59 Intake Total 851.789 0507.342 2.733 Output Total 2175 1660 Balance -1404.672 -530.658 2.733 Weight 89.1 kg Intake: IV 708 838 CO/CI 300 130 Pressure Bag 54 108 Sodium Chloride 0.9% 1, 300 600 000 ml @ 50 mls/hr IV . Q20H REYES Rx#:[id number] Intake, IV Titration 62.328 291.342 2.733 Amount Clevidipine Butyrate 25 2.167 4.666 mg In Empty Bag 1 bag @ 1 MG/HR 2 mls/hr IV .Q24H REYES Rx#:[id number] Dexmedetomidine/0.9% NaCl 28.913 (Pmx) 400 mcg In Empty Bag 1 bag @ Titrate IV . Q0M REYES Rx#:[id number] Diltiazem 125 mg In 70.5 Sodium Chloride 0.9% 100 ml @ 5 MG/HR 5 mls/hr IV .Q24H REYES Rx#:[id number] Insulin Regular 100 unit 16.176 2.733 In Sodium Chloride 0.9% 100 ml @ Per Protocol IV .Q0M REYES Rx#:[id number] Magnesium Sulfate-D5w Pmx 100 1 gm In Dextrose/Water 1 100ml.bag @ 100 mls/hr IVPB ONCE ONE Rx#: [id number] Potassium Chloride 10 meq 100 In Water For Injection 1 100ml.bag @ 100 mls/hr IVPB Q1H REYES Rx#: [id number] propofoL 1,000 mg In 31.248 Empty Bag 1 bag @ Titrate IV .Q0M REYES Rx#: [id number] Output: Chest Tube Drainage 400 605 Chest Tube Left Pleural 80 285 Chest Tube Mediastinal 320 320 Drainage 20 Left Arm 20 Urine 1475 1035 Estimated Blood Loss 300 Other: Voiding Method Indwelling Catheter Indwelling Catheter ABP, PAP, CO, CI - Last Documented Arterial Blood Pressure 119/54 Pulmonary Artery Pressure 23/13 Cardiac Output 7.3 Cardiac Index 3.5 - Exam CONSTITUTIONAL: Sitting up to the bedside chair in the intensive care unit, appears comfortable, cooperative, no apparent acute distress. HEENT: Neck is supple, no JVD, no lymphadenopathy. Right IJ Cordis and Wautoma- Jim catheter in place and functioning. RESPIRATORY: Lungs sounds essentially clear throughout, diminished to his bila teral bases. Respirations are symmetrical and nonlabored. Currently on room air with oxygen saturations 96%. Able to achieve 1000 mL on his incentive spirometry. Strong cough. CARDIOVASCULAR: Regular rhythm and rate. S1 and S2 present, negative for S3, gallop or murmur. Bedside telemetry showing normal sinus rhythm heart rate 69 bpm. Sternum is stable. Palpable peripheral pulses bilaterally. No calf pain or tenderness noted. Heart hugger in place with patient demonstrating appropriate use. Knee-high VIJAY hose and sequential compression devices in place to his bilateral lower extremities. GASTROINTESTINAL: Abdomen soft, nontender, nondistended. Hypoactive bowel sounds present 4 quadrants. Tolerating clear liquid diet. Denies passing flatus. No guarding or rigidity. GENITOURINARY: Hubbard present draining clear, yellow urine. Urine output 420 mL in the last 8 hours. INTEGUMENTARY: Skin is warm and dry with no evidence of clubbing or cyanosis. Midline sternal incision clean dry and well approximated, covered with dry intact dressing. Left lower extremity EVH sites well approximated without redness or drainage. Left arm radial artery harvest sites clean, dry and ap proximated. No drainage or redness is present. NEUROLOGIC: Cranial nerves II through XII intact. No focal deficits. MUSKULOSKELETAL: Able to move all extremities, strength equal bilaterally, generalized weakness. PSYCHIATRIC: Alert and oriented to person place and time, appropriate affect, intact judgment and insight. INVASIVE LINES AND TUBES: Mediastinal/left pleural chest tubes present and connected to low continuous wall suction, no air leaks present. Mediastinal tube with 130 mL of thin serosanguineous drainage overnight, 650 mL output in the last 24 hours. Left pleural chest tube with 210 mL of thin serosanguineous drainage overnight, 350 mL output in the last 24 hours. Right internal jugular Wautoma/Cordis, right radial arterial line present. Last CO 5.2, CI 2.5, PA 17/8 and CVP 2 mmHg. Left arm AARON drain in place with scant thin serosanguineous drainage, 20 mL output in the last 8 hours. - Labs CBC & Chem 7: 03/22/24 04:13 03/22/24 04:13 Labs: Abnormal Lab Results - Last 24 Hours (Table) 03/20/24 03/21/24 03/21/24 Range/Units 05:57 12:25 12:25 WBC 11.3 H (3.8-10.6) k/uL RBC 4.01 L (4.30-5.90) m/uL Hgb 12.2 L (13.0-17.5) gm/dL Hct 36.3 L (39.0-53.0) % Neutrophils # 9.2 H (1.3-7.7) k/uL Lymphocytes # (1.0-4.8) k/uL Monocytes # (0-1.0) k/uL ABG pO2 (83-108) mmHg ABG Total CO2 (19-24) mmol/L ABG O2 Saturation (94-97) % Sodium 136 L (137-145) mmol/L Creatinine (0.66-1.25) mg/dL Glucose 104 H (74-99) mg/dL POC Glucose (mg/dL) (70-110) mg/dL Calcium (8.4-10.2) mg/dL Total Bilirubin (0.2-1.3) mg/dL Total Protein 4.7 L (6.3-8.2) g/dL Albumin 2.8 L (3.5-5.0) g/dL Crossmatch See Detail 03/21/24 03/21/24 03/21/24 Range/Units 12:57 13:49 15:02 WBC (3.8-10.6) k/uL RBC (4.30-5.90) m/uL Hgb (13.0-17.5) gm/dL Hct (39.0-53.0) % Neutrophils # (1.3-7.7) k/uL Lymphocytes # (1.0-4.8) k/uL Monocytes # (0-1.0) k/uL ABG pO2 366 H (83-108) mmHg ABG Total CO2 26 H (19-24) mmol/L ABG O2 Saturation 100.5 H (94-97) % Sodium (137-145) mmol/L Creatinine (0.66-1.25) mg/dL Glucose (74-99) mg/dL POC Glucose (mg/dL) 113 H 122 H (70-110) mg/dL Calcium (8.4-10.2) mg/dL Total Bilirubin (0.2-1.3) mg/dL Total Protein (6.3-8.2) g/dL Albumin (3.5-5.0) g/dL Crossmatch 03/21/24 03/21/24 03/21/24 Range/Units 15:45 16:02 16:53 WBC (3.8-10.6) k/uL RBC (4.30-5.90) m/uL Hgb (13.0-17.5) gm/dL Hct (39.0-53.0) % Neutrophils # (1.3-7.7) k/uL Lymphocytes # (1.0-4.8) k/uL Monocytes # (0-1.0) k/uL ABG pO2 (83-108) mmHg ABG Total CO2 26 H (19-24) mmol/L ABG O2 Saturation 98.3 H (94-97) % Sodium (137-145) mmol/L Creatinine (0.66-1.25) mg/dL Glucose (74-99) mg/dL POC Glucose (mg/dL) 147 H 139 H (70-110) mg/dL Calcium (8.4-10.2) mg/dL Total Bilirubin (0.2-1.3) mg/dL Total Protein (6.3-8.2) g/dL Albumin (3.5-5.0) g/dL Crossmatch 03/21/24 03/21/24 03/21/24 Range/Units 17:45 17:47 18:59 WBC 12.9 H (3.8-10.6) k/uL RBC 3.96 L (4.30-5.90) m/uL Hgb 11.9 L (13.0-17.5) gm/dL Hct 35.4 L (39.0-53.0) % Neutrophils # 11.3 H (1.3-7.7) k/uL Lymphocytes # 0.6 L (1.0-4.8) k/uL Monocytes # (0-1.0) k/uL ABG pO2 (83-108) mmHg ABG Total CO2 (19-24) mmol/L ABG O2 Saturation (94-97) % Sodium (137-145) mmol/L Creatinine (0.66-1.25) mg/dL Glucose (74-99) mg/dL POC Glucose (mg/dL) 140 H 129 H (70-110) mg/dL Calcium (8.4-10.2) mg/dL Total Bilirubin (0.2-1.3) mg/dL Total Protein (6.3-8.2) g/dL Albumin (3.5-5.0) g/dL Crossmatch 03/21/24 03/21/24 03/21/24 Range/Units 19:48 20:05 21:10 WBC 12.8 H (3.8-10.6) k/uL RBC 4.11 L (4.30-5.90) m/uL Hgb 12.2 L (13.0-17.5) gm/dL Hct 36.5 L (39.0-53.0) % Neutrophils # 11.5 H (1.3-7.7) k/uL Lymphocytes # 0.4 L (1.0-4.8) k/uL Monocytes # (0-1.0) k/uL ABG pO2 (83-108) mmHg ABG Total CO2 (19-24) mmol/L ABG O2 Saturation (94-97) % Sodium (137-145) mmol/L Creatinine (0.66-1.25) mg/dL Glucose (74-99) mg/dL POC Glucose (mg/dL) 139 H 142 H (70-110) mg/dL Calcium (8.4-10.2) mg/dL Total Bilirubin (0.2-1.3) mg/dL Total Protein (6.3-8.2) g/dL Albumin (3.5-5.0) g/dL Crossmatch 03/21/24 03/21/24 03/21/24 Range/Units 21:56 22:56 23:57 WBC (3.8-10.6) k/uL RBC (4.30-5.90) m/uL Hgb (13.0-17.5) gm/dL Hct (39.0-53.0) % Neutrophils # (1.3-7.7) k/uL Lymphocytes # (1.0-4.8) k/uL Monocytes # (0-1.0) k/uL ABG pO2 (83-108) mmHg ABG Total CO2 (19-24) mmol/L ABG O2 Saturation (94-97) % Sodium (137-145) mmol/L Creatinine (0.66-1.25) mg/dL Glucose (74-99) mg/dL POC Glucose (mg/dL) 142 H 133 H 118 H (70-110) mg/dL Calcium (8.4-10.2) mg/dL Total Bilirubin (0.2-1.3) mg/dL Total Protein (6.3-8.2) g/dL Albumin (3.5-5.0) g/dL Crossmatch 03/22/24 03/22/24 03/22/24 Range/Units 01:03 02:00 02:59 WBC (3.8-10.6) k/uL RBC (4.30-5.90) m/uL Hgb (13.0-17.5) gm/dL Hct (39.0-53.0) % Neutrophils # (1.3-7.7) k/uL Lymphocytes # (1.0-4.8) k/uL Monocytes # (0-1.0) k/uL ABG pO2 (83-108) mmHg ABG Total CO2 (19-24) mmol/L ABG O2 Saturation (94-97) % Sodium (137-145) mmol/L Creatinine (0.66-1.25) mg/dL Glucose (74-99) mg/dL POC Glucose (mg/dL) 114 H 122 H 127 H (70-110) mg/dL Calcium (8.4-10.2) mg/dL Total Bilirubin (0.2-1.3) mg/dL Total Protein (6.3-8.2) g/dL Albumin (3.5-5.0) g/dL Crossmatch 03/22/24 03/22/24 03/22/24 Range/Units 04:12 04:13 04:13 WBC 12.9 H (3.8-10.6) k/uL RBC 3.75 L (4.30-5.90) m/uL Hgb 11.5 L (13.0-17.5) gm/dL Hct 33.7 L (39.0-53.0) % Neutrophils # 10.8 H (1.3-7.7) k/uL Lymphocytes # 0.9 L (1.0-4.8) k/uL Monocytes # 1.1 H (0-1.0) k/uL ABG pO2 (83-108) mmHg ABG Total CO2 (19-24) mmol/L ABG O2 Saturation (94-97) % Sodium 132 L (137-145) mmol/L Creatinine 0.63 L (0.66-1.25) mg/dL Glucose 115 H (74-99) mg/dL POC Glucose (mg/dL) 123 H (70-110) mg/dL Calcium 8.2 L (8.4-10.2) mg/dL Total Bilirubin 1.8 H (0.2-1.3) mg/dL Total Protein 5.1 L (6.3-8.2) g/dL Albumin 3.3 L (3.5-5.0) g/dL Crossmatch 03/22/24 03/22/24 Range/Units 05:05 06:58 WBC (3.8-10.6) k/uL RBC (4.30-5.90) m/uL Hgb (13.0-17.5) gm/dL Hct (39.0-53.0) % Neutrophils # (1.3-7.7) k/uL Lymphocytes # (1.0-4.8) k/uL Monocytes # (0-1.0) k/uL ABG pO2 (83-108) mmHg ABG Total CO2 (19-24) mmol/L ABG O2 Saturation (94-97) % Sodium (137-145) mmol/L Creatinine (0.66-1.25) mg/dL Glucose (74-99) mg/dL POC Glucose (mg/dL) 117 H 149 H (70-110) mg/dL Calcium (8.4-10.2) mg/dL Total Bilirubin (0.2-1.3) mg/dL Total Protein (6.3-8.2) g/dL Albumin (3.5-5.0) g/dL Crossmatch - Imaging and Cardiology Chest x-ray: report reviewed, image reviewed Assessment and Plan Assessment: Multivessel coronary artery disease, status post four-vessel off-pump coronary artery bypass grafting surgery Unstable angina Diabetes mellitus type 2, noncompliant with taking medication Peripheral neuropathy Remote history of EtOH abuse, quit drinking in 2007 Lifetime non-smoker with a preoperative FEV1 102% of predicted value Acute blood loss anemia, expected given hemodilution Plan: Continue to maximize medical therapy with aspirin, statin, Plavix, and beta- joleen. Will increase metoprolol to tartrate as tolerated. Discontinue nitroglycerin drip. Discontinue Cardizem drip once oral calcium channel joleen has been administered. Will start amlodipine 2.5 mg p.o. daily. Remove Wautoma-Ijm catheter. Keep right IJ cordis in place connected to continuous CVP monitoring. Will monitor daily labs and chest x-rays. Electrolyte replacement per protocol. Encourage incentive spirometry use 10 times every hour while awake. Bronchodilators per pulmonology/critical care management. Increase activity, ambulate as tolerated. PT/OT/cardiac rehab consulted. Pain control per current medication regimen. Toradol added for additional pain control. Insulin management per internal medicine. Patient should remain on IV insulin for another 24 hours, then may transition to subcutaneous insulin per protocol. Continue chest tubes for another 24 hours. Strict accurate output monitoring. Continue Hubbard catheter for another 24 hours, continue to record strict accurate intake and output. Daily weights. More recommendations to follow based on patient's clinical course. Time with Patient: Greater than 30
[2024-03-22] MEDS: IPRATROPIUM-ALBUTEROL 3 ML NEB INHALATION SCH (08:13)
[2024-03-22] MEDS ORDERED: MAGNESIUM HYDROXIDE 2,400 MG/30 ML CUP PO PRN (09:00)
[2024-03-22] MEDS ORDERED: bisacodyL 10 MG SUPP RECTAL PRN (09:00)
[2024-03-22 09:04] LABS: Glucose,Whole Blood 172 mg/dL (70-110)
[2024-03-22] MEDS: PANTOPRAZOLE 40 MG/10 ML VIAL IVP SCH (09:07)
[2024-03-22] MEDS: ASPIRIN 325 MG TAB PO SCH (09:08)
[2024-03-22] MEDS: amLODIPine 2.5 MG TAB PO SCH (09:08)
[2024-03-22] MEDS: CLOPIDOGREL 75 MG TAB PO SCH (09:09)
[2024-03-22] MEDS: ATORVASTATIN 40 MG TAB PO SCH (09:13)
[2024-03-22] MEDS: METOPROLOL TARTRATE 12.5 MG TAB PO SCH (09:14)
[2024-03-22 10:00] LABS: Glucose,Whole Blood 153 mg/dL (70-110)
[2024-03-22 11:52] VITALS: BMI 26.6
[2024-03-22 12:05] LABS: Glucose,Whole Blood 124 mg/dL (70-110)
[2024-03-22] MEDS: ASPIRIN 325 MG TAB ONE ×2 (12:10→12:23)
[2024-03-22] MEDS: ALBUMIN HUMAN 5% 250 ML IVPB ONE ×5 (12:11→12:22)
[2024-03-22] MEDS: METOPROLOL TARTRATE 12.5 MG TAB ONE ×2 (12:11→12:23)
[2024-03-22] MEDS: CLEVIDIPINE BUTYRATE 25 MG/50 ML VIAL IV ONE (12:14)
[2024-03-22] MEDS: KETOROLAC 15 MG/ML 1 ML VIAL ONE ×2 (12:15→12:22)
[2024-03-22] MEDS: IPRATROPIUM-ALBUTEROL 3 ML NEB ONE ×2 (12:15→12:23)
[2024-03-22] MEDS: ONDANSETRON 4 MG/2 ML VIAL ONE (12:22)
[2024-03-22] MEDS: PANTOPRAZOLE 40 MG/10 ML VIAL ONE (12:23)
[2024-03-22] MEDS: CLOPIDOGREL 75 MG TAB ONE (12:23)
--- NOTE | 2024-03-22 12:23 | P.PN ---
Subjective Progress Note Date: 03/22/24 The patient is seen today March 21, 2024 in follow-up in the intensive care unit. He is status post off-pump coronary artery bypass grafting x 4 with a LAWRENCE to the LAD, left radial artery sequential to the OM1 and OM 2, SVG to the PDA. He is intubated on the mechanical ventilator and assist-control mode at a rate of 14, tidal volume 500, FiO2 50% and a PEEP of 5. Arterial blood gases revealed a PaO2 of 366, pCO2 42 and a pH of 7.38 on 100% FiO2. He has a right IJ Stehekin-Jim catheter in place. Cardiac output 5.9. Cardiac index 2.8. PA pressure 23/16, CVP of 9. Chest x-ray reveals atelectatic changes in the bases. Mediastinal and left chest tubes are secured in place. He is currently on Pr ecedex at 0.4 mcg/kg/h. Propofol at 40 mcg/kg/min. Cardizem drip at 5 mg/h. Nitroglycerin drip at 5 mcg/min. Normal saline 0.9% at 50 mL/h. Heparin for DVT prophylaxis. White count 11.3. Hemoglobin 12.2. Platelets 207. Sodium 136. Potassium 3.9. Bicarb 22. BUN 14. Creatinine 0.68. Glucose 106. The patient is seen today 03/22/2024 in follow-up in the intensive care unit. Postoperative day #1. He is doing very well. He is sitting up in a chair at the bedside. Awake and alert in no acute distress. He is maintaining good O2 saturations in the 90s on room air. He is working well with the incentive spirometer. He is on normal saline at 40 mL/h. He still on insulin drip at 2.5 units/h. Cardiac output 5.2. Cardiac index 2.5. CVP 4. Mediastinal and left chest tubes remain in place. Chest x-ray reveals residual mild pulmonary vascular congestion. White count 12.9. Hemoglobin 11.5. Platelets 247. Sodium 132. Potassium 4.1. Bicarb 23. BUN 13. Creatinine 0.63. Glucose 115. He is continued on bronchodilators. Heparin for DVT prophylaxis. Objective - Vital Signs Vital signs: Vital Signs Temp 98.6 F 03/22/24 08:00 Pulse 63 03/22/24 10:00 Resp 24 03/22/24 10:00 BP 108/54 03/22/24 10:00 Pulse Ox 97 03/22/24 10:00 FiO2 40 03/21/24 15:21 Intake & Output 03/21/24 03/22/24 03/22/24 18:59 06:59 18:59 Intake Total 872.614 9727.342 271.332 Output Total 2175 1660 195 Balance -1404.672 -530.658 76.332 Weight 89.1 kg 89.1 kg Intake: IV 708 838 256 CO/CI 300 130 20 Pressure Bag 54 108 36 Sodium Chloride 0.9% 1, 300 600 200 000 ml @ 20 mls/hr IV . Q24H [facility] Rx#:[id number] Intake, IV Titration 62.328 291.342 15.332 Amount Clevidipine Butyrate 25 2.167 4.666 mg In Empty Bag 1 bag @ 1 MG/HR 2 mls/hr IV .Q24H [facility] Rx#:[id number] Dexmedetomidine/0.9% NaCl 28.913 (Pmx) 400 mcg In Empty Bag 1 bag @ Titrate IV . Q0M [facility] Rx#:[id number] Diltiazem 125 mg In 70.5 Sodium Chloride 0.9% 100 ml @ 5 MG/HR 5 mls/hr IV .Q24H [facility] Rx#:[id number] Insulin Regular 100 unit 16.176 15.332 In Sodium Chloride 0.9% 100 ml @ Per Protocol IV .Q0M [facility] Rx#:[id number] Magnesium Sulfate-D5w Pmx 100 1 gm In Dextrose/Water 1 100ml.bag @ 100 mls/hr IVPB ONCE ONE Rx#: [id number] Potassium Chloride 10 meq 100 In Water For Injection 1 100ml.bag @ 100 mls/hr IVPB Q1H [facility] Rx#: [id number] propofoL 1,000 mg In 31.248 Empty Bag 1 bag @ Titrate IV .Q0M [facility] Rx#: [id number] Output: Chest Tube Drainage 400 605 90 Chest Tube Left Pleural 80 285 50 Chest Tube Mediastinal 320 320 40 Drainage 20 Left Arm 20 Urine 1475 1035 105 Estimated Blood Loss 300 Other: Voiding Method Indwelling Catheter Indwelling Catheter ABP, PAP, CO, CI - Last Documented Arterial Blood Pressure 116/39 Pulmonary Artery Pressure 9/1 Cardiac Output 5.2 Cardiac Index 2.5 - Exam GENERAL EXAM: Awake, alert, pleasant 63-year-old male patient, on room air, up in a chair, fairly comfortable in no apparent distress. HEAD: Normocephalic. EYES: Normal reaction of pupils, equal size. NOSE: Clear with pink turbinates. THROAT: No erythema or exudates. NECK: Right IJ Cordis catheter in place. No masses, no JVD. CHEST: Sternal dressing dry and intact. Mediastinal and left chest tubes in place. LUNGS: Equal air entry with no crackles, wheeze, rhonchi or dullness. CVS: S1 and S2 normal with no audible murmur, regular rhythm. ABDOMEN: No hepatosplenomegaly, no guarding or rigidity. SPINE: No scoliosis or deformity SKIN: No rashes CENTRAL NERVOUS SYSTEM: No focal deficits, tone is normal in all 4 extremities. EXTREMITIES: Left upper extremity in Ignacio wrap. AARON drain in place. Right radial arterial line in place. Wraps to the bilateral lower extremities. No clubbing, no cyanosis. Peripheral pulses are intact. - Labs CBC & Chem 7: 03/22/24 04:13 03/22/24 04:13 Labs: Abnormal Lab Results - Last 24 Hours (Table) 03/20/24 03/21/24 03/21/24 Range/Units 05:57 12:25 12:25 WBC 11.3 H (3.8-10.6) k/uL RBC 4.01 L (4.30-5.90) m/uL Hgb 12.2 L (13.0-17.5) gm/dL Hct 36.3 L (39.0-53.0) % Neutrophils # 9.2 H (1.3-7.7) k/uL Lymphocytes # (1.0-4.8) k/uL Monocytes # (0-1.0) k/uL ABG pO2 (83-108) mmHg ABG Total CO2 (19-24) mmol/L ABG O2 Saturation (94-97) % Sodium 136 L (137-145) mmol/L Creatinine (0.66-1.25) mg/dL Glucose 104 H (74-99) mg/dL POC Glucose (mg/dL) (70-110) mg/dL Calcium (8.4-10.2) mg/dL Total Bilirubin (0.2-1.3) mg/dL Total Protein 4.7 L (6.3-8.2) g/dL Albumin 2.8 L (3.5-5.0) g/dL Crossmatch See Detail 03/21/24 03/21/24 03/21/24 Range/Units 12:57 13:49 15:02 WBC (3.8-10.6) k/uL RBC (4.30-5.90) m/uL Hgb (13.0-17.5) gm/dL Hct (39.0-53.0) % Neutrophils # (1.3-7.7) k/uL Lymphocytes # (1.0-4.8) k/uL Monocytes # (0-1.0) k/uL ABG pO2 366 H (83-108) mmHg ABG Total CO2 26 H (19-24) mmol/L ABG O2 Saturation 100.5 H (94-97) % Sodium (137-145) mmol/L Creatinine (0.66-1.25) mg/dL Glucose (74-99) mg/dL POC Glucose (mg/dL) 113 H 122 H (70-110) mg/dL Calcium (8.4-10.2) mg/dL Total Bilirubin (0.2-1.3) mg/dL Total Protein (6.3-8.2) g/dL Albumin (3.5-5.0) g/dL Crossmatch 03/21/24 03/21/24 03/21/24 Range/Units 15:45 16:02 16:53 WBC (3.8-10.6) k/uL RBC (4.30-5.90) m/uL Hgb (13.0-17.5) gm/dL Hct (39.0-53.0) % Neutrophils # (1.3-7.7) k/uL Lymphocytes # (1.0-4.8) k/uL Monocytes # (0-1.0) k/uL ABG pO2 (83-108) mmHg ABG Total CO2 26 H (19-24) mmol/L ABG O2 Saturation 98.3 H (94-97) % Sodium (137-145) mmol/L Creatinine (0.66-1.25) mg/dL Glucose (74-99) mg/dL POC Glucose (mg/dL) 147 H 139 H (70-110) mg/dL Calcium (8.4-10.2) mg/dL Total Bilirubin (0.2-1.3) mg/dL Total Protein (6.3-8.2) g/dL Albumin (3.5-5.0) g/dL Crossmatch 03/21/24 03/21/24 03/21/24 Range/Units 17:45 17:47 18:59 WBC 12.9 H (3.8-10.6) k/uL RBC 3.96 L (4.30-5.90) m/uL Hgb 11.9 L (13.0-17.5) gm/dL Hct 35.4 L (39.0-53.0) % Neutrophils # 11.3 H (1.3-7.7) k/uL Lymphocytes # 0.6 L (1.0-4.8) k/uL Monocytes # (0-1.0) k/uL ABG pO2 (83-108) mmHg ABG Total CO2 (19-24) mmol/L ABG O2 Saturation (94-97) % Sodium (137-145) mmol/L Creatinine (0.66-1.25) mg/dL Glucose (74-99) mg/dL POC Glucose (mg/dL) 140 H 129 H (70-110) mg/dL Calcium (8.4-10.2) mg/dL Total Bilirubin (0.2-1.3) mg/dL Total Protein (6.3-8.2) g/dL Albumin (3.5-5.0) g/dL Crossmatch 03/21/24 03/21/24 03/21/24 Range/Units 19:48 20:05 21:10 WBC 12.8 H (3.8-10.6) k/uL RBC 4.11 L (4.30-5.90) m/uL Hgb 12.2 L (13.0-17.5) gm/dL Hct 36.5 L (39.0-53.0) % Neutrophils # 11.5 H (1.3-7.7) k/uL Lymphocytes # 0.4 L (1.0-4.8) k/uL Monocytes # (0-1.0) k/uL ABG pO2 (83-108) mmHg ABG Total CO2 (19-24) mmol/L ABG O2 Saturation (94-97) % Sodium (137-145) mmol/L Creatinine (0.66-1.25) mg/dL Glucose (74-99) mg/dL POC Glucose (mg/dL) 139 H 142 H (70-110) mg/dL Calcium (8.4-10.2) mg/dL Total Bilirubin (0.2-1.3) mg/dL Total Protein (6.3-8.2) g/dL Albumin (3.5-5.0) g/dL Crossmatch 03/21/24 03/21/24 03/21/24 Range/Units 21:56 22:56 23:57 WBC (3.8-10.6) k/uL RBC (4.30-5.90) m/uL Hgb (13.0-17.5) gm/dL Hct (39.0-53.0) % Neutrophils # (1.3-7.7) k/uL Lymphocytes # (1.0-4.8) k/uL Monocytes # (0-1.0) k/uL ABG pO2 (83-108) mmHg ABG Total CO2 (19-24) mmol/L ABG O2 Saturation (94-97) % Sodium (137-145) mmol/L Creatinine (0.66-1.25) mg/dL Glucose (74-99) mg/dL POC Glucose (mg/dL) 142 H 133 H 118 H (70-110) mg/dL Calcium (8.4-10.2) mg/dL Total Bilirubin (0.2-1.3) mg/dL Total Protein (6.3-8.2) g/dL Albumin (3.5-5.0) g/dL Crossmatch 03/22/24 03/22/24 03/22/24 Range/Units 01:03 02:00 02:59 WBC (3.8-10.6) k/uL RBC (4.30-5.90) m/uL Hgb (13.0-17.5) gm/dL Hct (39.0-53.0) % Neutrophils # (1.3-7.7) k/uL Lymphocytes # (1.0-4.8) k/uL Monocytes # (0-1.0) k/uL ABG pO2 (83-108) mmHg ABG Total CO2 (19-24) mmol/L ABG O2 Saturation (94-97) % Sodium (137-145) mmol/L Creatinine (0.66-1.25) mg/dL Glucose (74-99) mg/dL POC Glucose (mg/dL) 114 H 122 H 127 H (70-110) mg/dL Calcium (8.4-10.2) mg/dL Total Bilirubin (0.2-1.3) mg/dL Total Protein (6.3-8.2) g/dL Albumin (3.5-5.0) g/dL Crossmatch 03/22/24 03/22/24 03/22/24 Range/Units 04:12 04:13 04:13 WBC 12.9 H (3.8-10.6) k/uL RBC 3.75 L (4.30-5.90) m/uL Hgb 11.5 L (13.0-17.5) gm/dL Hct 33.7 L (39.0-53.0) % Neutrophils # 10.8 H (1.3-7.7) k/uL Lymphocytes # 0.9 L (1.0-4.8) k/uL Monocytes # 1.1 H (0-1.0) k/uL ABG pO2 (83-108) mmHg ABG Total CO2 (19-24) mmol/L ABG O2 Saturation (94-97) % Sodium 132 L (137-145) mmol/L Creatinine 0.63 L (0.66-1.25) mg/dL Glucose 115 H (74-99) mg/dL POC Glucose (mg/dL) 123 H (70-110) mg/dL Calcium 8.2 L (8.4-10.2) mg/dL Total Bilirubin 1.8 H (0.2-1.3) mg/dL Total Protein 5.1 L (6.3-8.2) g/dL Albumin 3.3 L (3.5-5.0) g/dL Crossmatch 03/22/24 03/22/24 03/22/24 Range/Units 05:05 06:58 09:02 WBC (3.8-10.6) k/uL RBC (4.30-5.90) m/uL Hgb (13.0-17.5) gm/dL Hct (39.0-53.0) % Neutrophils # (1.3-7.7) k/uL Lymphocytes # (1.0-4.8) k/uL Monocytes # (0-1.0) k/uL ABG pO2 (83-108) mmHg ABG Total CO2 (19-24) mmol/L ABG O2 Saturation (94-97) % Sodium (137-145) mmol/L Creatinine (0.66-1.25) mg/dL Glucose (74-99) mg/dL POC Glucose (mg/dL) 117 H 149 H 172 H (70-110) mg/dL Calcium (8.4-10.2) mg/dL Total Bilirubin (0.2-1.3) mg/dL Total Protein (6.3-8.2) g/dL Albumin (3.5-5.0) g/dL Crossmatch 03/22/24 03/22/24 Range/Units 09:57 12:04 WBC (3.8-10.6) k/uL RBC (4.30-5.90) m/uL Hgb (13.0-17.5) gm/dL Hct (39.0-53.0) % Neutrophils # (1.3-7.7) k/uL Lymphocytes # (1.0-4.8) k/uL Monocytes # (0-1.0) k/uL ABG pO2 (83-108) mmHg ABG Total CO2 (19-24) mmol/L ABG O2 Saturation (94-97) % Sodium (137-145) mmol/L Creatinine (0.66-1.25) mg/dL Glucose (74-99) mg/dL POC Glucose (mg/dL) 153 H 124 H (70-110) mg/dL Calcium (8.4-10.2) mg/dL Total Bilirubin (0.2-1.3) mg/dL Total Protein (6.3-8.2) g/dL Albumin (3.5-5.0) g/dL Crossmatch Assessment and Plan Assessment: Triple-vessel coronary artery disease status post coronary artery bypass grafting x 4 utilizing a LAWRENCE to the LAD, left radial arterial graft to the OM1 and OM 2, SVG to the PDA. Postoperative day #1 Mechanical ventilation management, expected outcome of surgery Diabetes mellitus, type II Peripheral neuropathy Remote history of alcoholism, quit in 2007 Non-smoker, FEV1 value within normal limits Plan: The patient was seen and evaluated Chest x-ray, labs, and medications reviewed Working well with the incentive spirometer Stable and on room air We will continue to follow I have personally seen and examined the patient, performed the documentation and the assessment and plan as written. Number of minutes spent on the visit: 10.
[2024-03-22 13:05] LABS: Glucose,Whole Blood 143 mg/dL (70-110)
[2024-03-22 14:10] LABS: Glucose,Whole Blood 116 mg/dL (70-110)
--- NOTE | 2024-03-22 14:40 | P.PN ---
Subjective Progress Note Date: 03/22/24 This is a 63-year-old gentleman status post CABG x 4V, postop day #1. Tolerated procedure well ;telemetry normal sinus rhythm. Maintaining O2 sats in the 90s on room air. Chest x-ray reports residual mild pulmonary vascular congestion.Cardiac output 5.2, cardiac index 2.5, currently on insulin and Card izem drips. Glucose 115. afebrile, WBC 12.9. Hemoglobin 11.5, platelets 247. Sodium 132, potassium 4.1, magnesium 1.6, bicarb 23, BUN 13, creatinine 0.63. Objective - Vital Signs Vital signs: Vital Signs Temp 98.2 F 03/22/24 12:00 Pulse 61 03/22/24 14:00 Resp 25 H 03/22/24 14:00 BP 101/60 03/22/24 14:00 Pulse Ox 96 03/22/24 14:00 FiO2 40 03/21/24 15:21 Intake & Output 03/21/24 03/22/24 03/22/24 18:59 06:59 18:59 Intake Total 802.524 3465.342 1319.524 Output Total 2175 1660 375 Balance -1404.672 -530.658 944.524 Weight 89.1 kg 89.1 kg Intake: IV 708 838 400 CO/CI 300 130 20 Pressure Bag 54 108 60 Sodium Chloride 0.9% 1, 300 600 320 000 ml @ 20 mls/hr IV . Q24H [facility] Rx#:[id number] Intake, IV Titration 62.328 291.342 19.524 Amount Clevidipine Butyrate 25 2.167 4.666 mg In Empty Bag 1 bag @ 1 MG/HR 2 mls/hr IV .Q24H [facility] Rx#:[id number] Dexmedetomidine/0.9% NaCl 28.913 (Pmx) 400 mcg In Empty Bag 1 bag @ Titrate IV . Q0M [facility] Rx#:[id number] Diltiazem 125 mg In 70.5 Sodium Chloride 0.9% 100 ml @ 5 MG/HR 5 mls/hr IV .Q24H [facility] Rx#:[id number] Insulin Regular 100 unit 16.176 19.524 In Sodium Chloride 0.9% 100 ml @ Per Protocol IV .Q0M [facility] Rx#:[id number] Magnesium Sulfate-D5w Pmx 100 1 gm In Dextrose/Water 1 100ml.bag @ 100 mls/hr IVPB ONCE ONE Rx#: [id number] Potassium Chloride 10 meq 100 In Water For Injection 1 100ml.bag @ 100 mls/hr IVPB Q1H [facility] [place] Rx#: [id number] propofoL 1,000 mg In 31.248 Empty Bag 1 bag @ Titrate IV .Q0M [facility] [place] Rx#: [id number] Oral 900 Output: Chest Tube Drainage 400 605 90 Chest Tube Left Pleural 80 285 50 Chest Tube Mediastinal 320 320 40 Drainage 20 Left Arm 20 Urine 1475 1035 285 Estimated Blood Loss 300 Other: Voiding Method Indwelling Catheter Indwelling Catheter Indwelling Catheter ABP, PAP, CO, CI - Last Documented Arterial Blood Pressure 112/41 Pulmonary Artery Pressure 9/1 Cardiac Output 5.2 Cardiac Index 2.5 - Exam PHYSICAL EXAM: VITAL SIGNS: [As above] GENERAL: Alert and oriented x 3, sitting up in chair, no acute distress wearing his bear hugger HEENT: Normocephalic ,conjunctivae normal. eyes normal. MMM. NECK: Supple, right IJ cordis catheter present, no JVD CARDIOVASCULAR: S1, S2 regular. No murmur RESPIRATION: Unlabored, equal air entry ,breath sounds diminished in the bases. Mediastinal left chest tube present ABDOMEN: Soft, nondistended, nontender . No guarding. Positive bowel sounds LEGS: Bilateral lower extremities wrapped, positive DP pulses. NERVOUS SYSTEM: Cranial N 2-12 grossly normal. No focal deficits. Strength and sensation grossly intact. Skin: Warm and dry, no rash - Labs CBC & Chem 7: 03/22/24 04:13 03/22/24 04:13 Labs: Abnormal Lab Results - Last 24 Hours (Table) 03/20/24 03/21/24 03/21/24 Range/Units 05:57 15:02 15:45 WBC (3.8-10.6) k/uL RBC (4.30-5.90) m/uL Hgb (13.0-17.5) gm/dL Hct (39.0-53.0) % Neutrophils # (1.3-7.7) k/uL Lymphocytes # (1.0-4.8) k/uL Monocytes # (0-1.0) k/uL ABG Total CO2 26 H (19-24) mmol/L ABG O2 Saturation 98.3 H (94-97) % Sodium (137-145) mmol/L Creatinine (0.66-1.25) mg/dL Glucose (74-99) mg/dL POC Glucose (mg/dL) 122 H (70-110) mg/dL Calcium (8.4-10.2) mg/dL Total Bilirubin (0.2-1.3) mg/dL Total Protein (6.3-8.2) g/dL Albumin (3.5-5.0) g/dL Crossmatch See Detail 03/21/24 03/21/24 03/21/24 Range/Units 16:02 16:53 17:45 WBC 12.9 H (3.8-10.6) k/uL RBC 3.96 L (4.30-5.90) m/uL Hgb 11.9 L (13.0-17.5) gm/dL Hct 35.4 L (39.0-53.0) % Neutrophils # 11.3 H (1.3-7.7) k/uL Lymphocytes # 0.6 L (1.0-4.8) k/uL Monocytes # (0-1.0) k/uL ABG Total CO2 (19-24) mmol/L ABG O2 Saturation (94-97) % Sodium (137-145) mmol/L Creatinine (0.66-1.25) mg/dL Glucose (74-99) mg/dL POC Glucose (mg/dL) 147 H 139 H (70-110) mg/dL Calcium (8.4-10.2) mg/dL Total Bilirubin (0.2-1.3) mg/dL Total Protein (6.3-8.2) g/dL Albumin (3.5-5.0) g/dL Crossmatch 03/21/24 03/21/24 03/21/24 Range/Units 17:47 18:59 19:48 WBC 12.8 H (3.8-10.6) k/uL RBC 4.11 L (4.30-5.90) m/uL Hgb 12.2 L (13.0-17.5) gm/dL Hct 36.5 L (39.0-53.0) % Neutrophils # 11.5 H (1.3-7.7) k/uL Lymphocytes # 0.4 L (1.0-4.8) k/uL Monocytes # (0-1.0) k/uL ABG Total CO2 (19-24) mmol/L ABG O2 Saturation (94-97) % Sodium (137-145) mmol/L Creatinine (0.66-1.25) mg/dL Glucose (74-99) mg/dL POC Glucose (mg/dL) 140 H 129 H (70-110) mg/dL Calcium (8.4-10.2) mg/dL Total Bilirubin (0.2-1.3) mg/dL Total Protein (6.3-8.2) g/dL Albumin (3.5-5.0) g/dL Crossmatch 03/21/24 03/21/24 03/21/24 Range/Units 20:05 21:10 21:56 WBC (3.8-10.6) k/uL RBC (4.30-5.90) m/uL Hgb (13.0-17.5) gm/dL Hct (39.0-53.0) % Neutrophils # (1.3-7.7) k/uL Lymphocytes # (1.0-4.8) k/uL Monocytes # (0-1.0) k/uL ABG Total CO2 (19-24) mmol/L ABG O2 Saturation (94-97) % Sodium (137-145) mmol/L Creatinine (0.66-1.25) mg/dL Glucose (74-99) mg/dL POC Glucose (mg/dL) 139 H 142 H 142 H (70-110) mg/dL Calcium (8.4-10.2) mg/dL Total Bilirubin (0.2-1.3) mg/dL Total Protein (6.3-8.2) g/dL Albumin (3.5-5.0) g/dL Crossmatch 03/21/24 03/21/24 03/22/24 Range/Units 22:56 23:57 01:03 WBC (3.8-10.6) k/uL RBC (4.30-5.90) m/uL Hgb (13.0-17.5) gm/dL Hct (39.0-53.0) % Neutrophils # (1.3-7.7) k/uL Lymphocytes # (1.0-4.8) k/uL Monocytes # (0-1.0) k/uL ABG Total CO2 (19-24) mmol/L ABG O2 Saturation (94-97) % Sodium (137-145) mmol/L Creatinine (0.66-1.25) mg/dL Glucose (74-99) mg/dL POC Glucose (mg/dL) 133 H 118 H 114 H (70-110) mg/dL Calcium (8.4-10.2) mg/dL Total Bilirubin (0.2-1.3) mg/dL Total Protein (6.3-8.2) g/dL Albumin (3.5-5.0) g/dL Crossmatch 03/22/24 03/22/24 03/22/24 Range/Units 02:00 02:59 04:12 WBC (3.8-10.6) k/uL RBC (4.30-5.90) m/uL Hgb (13.0-17.5) gm/dL Hct (39.0-53.0) % Neutrophils # (1.3-7.7) k/uL Lymphocytes # (1.0-4.8) k/uL Monocytes # (0-1.0) k/uL ABG Total CO2 (19-24) mmol/L ABG O2 Saturation (94-97) % Sodium (137-145) mmol/L Creatinine (0.66-1.25) mg/dL Glucose (74-99) mg/dL POC Glucose (mg/dL) 122 H 127 H 123 H (70-110) mg/dL Calcium (8.4-10.2) mg/dL Total Bilirubin (0.2-1.3) mg/dL Total Protein (6.3-8.2) g/dL Albumin (3.5-5.0) g/dL Crossmatch 03/22/24 03/22/24 03/22/24 Range/Units 04:13 04:13 05:05 WBC 12.9 H (3.8-10.6) k/uL RBC 3.75 L (4.30-5.90) m/uL Hgb 11.5 L (13.0-17.5) gm/dL Hct 33.7 L (39.0-53.0) % Neutrophils # 10.8 H (1.3-7.7) k/uL Lymphocytes # 0.9 L (1.0-4.8) k/uL Monocytes # 1.1 H (0-1.0) k/uL ABG Total CO2 (19-24) mmol/L ABG O2 Saturation (94-97) % Sodium 132 L (137-145) mmol/L Creatinine 0.63 L (0.66-1.25) mg/dL Glucose 115 H (74-99) mg/dL POC Glucose (mg/dL) 117 H (70-110) mg/dL Calcium 8.2 L (8.4-10.2) mg/dL Total Bilirubin 1.8 H (0.2-1.3) mg/dL Total Protein 5.1 L (6.3-8.2) g/dL Albumin 3.3 L (3.5-5.0) g/dL Crossmatch 03/22/24 03/22/24 03/22/24 Range/Units 06:58 09:02 09:57 WBC (3.8-10.6) k/uL RBC (4.30-5.90) m/uL Hgb (13.0-17.5) gm/dL Hct (39.0-53.0) % Neutrophils # (1.3-7.7) k/uL Lymphocytes # (1.0-4.8) k/uL Monocytes # (0-1.0) k/uL ABG Total CO2 (19-24) mmol/L ABG O2 Saturation (94-97) % Sodium (137-145) mmol/L Creatinine (0.66-1.25) mg/dL Glucose (74-99) mg/dL POC Glucose (mg/dL) 149 H 172 H 153 H (70-110) mg/dL Calcium (8.4-10.2) mg/dL Total Bilirubin (0.2-1.3) mg/dL Total Protein (6.3-8.2) g/dL Albumin (3.5-5.0) g/dL Crossmatch 03/22/24 03/22/24 03/22/24 Range/Units 12:04 13:04 14:08 WBC (3.8-10.6) k/uL RBC (4.30-5.90) m/uL Hgb (13.0-17.5) gm/dL Hct (39.0-53.0) % Neutrophils # (1.3-7.7) k/uL Lymphocytes # (1.0-4.8) k/uL Monocytes # (0-1.0) k/uL ABG Total CO2 (19-24) mmol/L ABG O2 Saturation (94-97) % Sodium (137-145) mmol/L Creatinine (0.66-1.25) mg/dL Glucose (74-99) mg/dL POC Glucose (mg/dL) 124 H 143 H 116 H (70-110) mg/dL Calcium (8.4-10.2) mg/dL Total Bilirubin (0.2-1.3) mg/dL Total Protein (6.3-8.2) g/dL Albumin (3.5-5.0) g/dL Crossmatch Assessment and Plan Assessment: Multi vessel CAD, status post CABG x 4 vessels Acute blood loss anemia, expected outcome Diabetes mellitus type 2, prior A1c of 01/18 7.7 Peripheral neuropathy History of alcoholism, quit in 2007 Occasional marijuana use Plan: Continue on current medication regimen, monitoring and symptomatic treatment. Aggressive pulmonary toileting with incentive spirometer reinforced. Amlodipine ordered, Cardizem drip will be discontinued as per CTS. increase activity as tolerated. Pain management. Continue on insulin drip with close monitoring of Accu-Cheks. The impression and plan of care has been dictated as directed. : I performed a history and examination of this patient, discussed the same with the dictator. I agree with the dictator's note ,documented as a scribe. Any additional findings or plans will be noted.
[2024-03-22] MEDS: ACETAMINOPHEN TAB 500 MG TAB PO PRN (14:59)
[2024-03-22 15:10] LABS: Glucose,Whole Blood 103 mg/dL (70-110)
[2024-03-22 16:48] LABS: Glucose,Whole Blood 132 mg/dL (70-110)
[2024-03-22 18:20] LABS: Glucose,Whole Blood 140 mg/dL (70-110)
[2024-03-22 19:06] LABS: Glucose,Whole Blood 133 mg/dL (70-110)
[2024-03-22] MEDS: SENNOSIDES-DOCUSATE SODIUM 1 EACH TAB PO SCH (21:43)
[2024-03-22 22:14] LABS: Glucose,Whole Blood 118 mg/dL (70-110)
[2024-03-22 23:41] LABS: Glucose,Whole Blood 110 mg/dL (70-110)
[2024-03-23 00:48] LABS: Glucose,Whole Blood 109 mg/dL (70-110)
[2024-03-23 02:04] LABS: Glucose,Whole Blood 112 mg/dL (70-110)
[2024-03-23 03:15] LABS: Glucose,Whole Blood 112 mg/dL (70-110)
[2024-03-23 04:06] LABS: Glucose,Whole Blood 111 mg/dL (70-110)
[2024-03-23 04:51] LABS: Basophils % (A) 0 %; Eosinophils % (A) 0 %; HCT 29.9 % (39.0-53.0); HGB 10.1 gm/dL (13.0-17.5); Lymphocytes # (A) 0.9 k/uL (1.0-4.8); Lymphocytes % (A) 9 %; MCH 30.8 pg (25.0-35.0); MCHC 33.8 g/dL (31.0-37.0); MCV 91.2 fL (80.0-100.0); Mean Platelet Volume 7.2; Monocytes # (A) 0.9 k/uL (0-1.0); Monocytes % (A) 9 %; Neutrophils # (A) 7.8 k/uL (1.3-7.7); Neutrophils % (A) 80 %; Platelet Count 184 k/uL (150-450); RBC 3.28 m/uL (4.30-5.90); RDW 13.5 % (11.5-15.5); WBC 9.8 k/uL (3.8-10.6)
[2024-03-23 05:10] LABS: Glucose,Whole Blood 115 mg/dL (70-110)
[2024-03-23 05:16] LABS: Ionized Calcium 4.8 mg/dL (4.5-5.3)
[2024-03-23 05:32] LABS: ALT 12 U/L (4-49); AST 28 U/L (17-59); African American GFR (CKD) >90 (>60 ml/min/1.73 sqM); Albumin 3.1 g/dL (3.5-5.0); Alkaline Phosphatase 46 U/L (38-126); Anion Gap 6 mmol/L; Blood Urea Nitrogen 13 mg/dL (9-20); Calcium 8.2 mg/dL (8.4-10.2); Carbon Dioxide 23 mmol/L (22-30); Chloride 102 mmol/L (98-107); Glucose 105 mg/dL (74-99); Magnesium 1.9 mg/dL (1.6-2.3); Non-African American GFR(CKD) >90 (>60 ml/min/1.73 sqM); Potassium 4.3 mmol/L (3.5-5.1); Sodium 131 mmol/L (137-145); Total Bilirubin 1.5 mg/dL (0.2-1.3); Total Protein 4.8 g/dL (6.3-8.2)
[2024-03-23 06:54] LABS: Glucose,Whole Blood 120 mg/dL (70-110)
--- NOTE | 2024-03-23 07:59 | XR ---
EXAMINATION TYPE: XR chest 1V portable DATE OF EXAM: 03/23/2024 Comparison: 03/22/2024 Clinical History: 63-year-old male Post Operative Cardiac Surgery Findings: Median sternotomy wires and post-CABG clips. Right IJ sheath remains in place. Removal of the [place] nz catheter. Mediastinal drain remains in place. Heart remains mildly enlarged. Interstitial density persists. Left-sided chest tube remains. No appreciable pneumothorax. Impression: Post-CABG changes. Similar pulmonary vascular congestion.
[2024-03-23] MEDS: PANTOPRAZOLE 40 MG TABLET PO SCH (08:02)
[2024-03-23] MEDS: FUROSEMIDE 10 MG/ML 2 ML VIAL IV STA (08:03)
[2024-03-23] MEDS: MAGNESIUM SULFATE-D5W PMX 1 GM in DEXTROSE/WATER 1 100ML.BAG IVPB ONE (08:03)
--- NOTE | 2024-03-23 08:20 | P.PN ---
Subjective Progress Note Date: 03/23/24 Principal diagnosis: Multivessel coronary artery disease, unstable angina. Past medical history significant for hyperlipidemia, diabetes mellitus type 2 noncompliant with taking medications hemoglobin A1c from November 2023 7.7%, remote history of EtOH abuse, quit drinking in 2007, occasional marijuana use, insomnia, peripheral neuropathy, and is a lifetime non-smoker. POD #2 Off-pump CABG x 4 with left internal mammary artery to left anterior descending coronary artery, sequential left radial artery to first and second obtuse marginal coronary arteries, saphenous vein graft to posterior descending coronary artery, with endovascular left radial artery harvest and endovascular harvest of the left greater saphenous vein from the left thigh. Clip left atrial appendage 35 mm AtriCure clip. Postoperative acute blood loss anemia, expected given hemodilution. The patient was seen and examined in follow-up today March 23, 2024 at his bedside in the intensive care unit. He is currently sitting up to the bedside chair, is awake, alert, oriented x 3 and is in no acute apparent distress. Denies any complaints of shortness of breath at this time, although was complaining of some surgical type pain with taking a deep breath and to his chest tubes insertion sites. Currently rating his pain 9 out of 10 on the pain scale. Oxygen saturations are 97% on room air and he is achieving 1000 mL on his incentive spirometry with encouragement. Bedside telemetry is showing nor mal sinus rhythm heart rate 76 bpm. He remains hemodynamically stable and is currently on no inotropic or pressor support. Right IJ cordis remains in place with current CVP monitoring, current CVP pressure is 4 mmHg. The patient reports he has been up ambulating in the intensive care unit hallway with standby assistance from nursing and therapy staff and tolerating well. Mediastinal and left pleural chest tubes remain in place to low continuous wall suction -20 cm H2O. No air leak is present. Draining thin serosanguineous drainage. Left pleural chest tube drain 130 mL output in the last 8 hours and 300 mL output in the last 24 hours. Mediastinal chest tube drained 100 mL output in the last 8 hours and 250 mL output in the last 24 hours. Chest x-ray and laboratory results were reviewed. Objective - Vital Signs Vital signs: Vital Signs Temp 98 F 03/23/24 04:00 Pulse 73 03/23/24 07:00 Resp 13 03/23/24 07:00 BP 119/66 03/23/24 06:03 Pulse Ox 93 L 03/23/24 07:00 FiO2 40 03/21/24 15:21 Intake & Output 03/22/24 03/23/24 03/23/24 18:59 06:59 18:59 Intake Total 1947.349 475.75 Output Total 740 1950 Balance 1207.349 -1474.25 Weight 89.1 kg 92.5 kg Intake: IV 544 468 CO/CI 20 Pressure Bag 84 78 Sodium Chloride 0.9% 1, 440 390 000 ml @ 20 mls/hr IV . Q24H REYES Rx#:[id number] Intake, IV Titration 23.349 7.75 Amount Insulin Regular 100 unit 23.349 7.75 In Sodium Chloride 0.9% 100 ml @ Per Protocol IV .Q0M REYES Rx#:[id number] Oral 1380 Output: Chest Tube Drainage 210 340 Chest Tube Left Pleural 80 190 Chest Tube Mediastinal 130 150 Drainage 20 Left Arm 20 Urine 510 1610 Other: Voiding Method Indwelling Catheter Indwelling Catheter ABP, PAP, CO, CI - Last Documented Arterial Blood Pressure 123/41 Pulmonary Artery Pressure 9/1 Cardiac Output 5.2 Cardiac Index 2.5 - Exam CONSTITUTIONAL: Sitting up to the bedside chair in the intensive care unit, appears comfortable, cooperative, no apparent acute distress. HEENT: Neck is supple, no JVD, no lymphadenopathy. Right IJ Cordis in place and functioning. RESPIRATORY: Lungs sounds essentially clear throughout, diminished to his bilateral bases. Respirations are symmetrical and nonlabored. Currently on room air with oxygen saturations 97%. Able to achieve 1000 mL on his incentive spirometry. Strong cough. CARDIOVASCULAR: Regular rhythm and rate. S1 and S2 present, negative for S3, gallop or murmur. Bedside telemetry showing normal sinus rhythm heart rate 76 bpm. Sternum is stable. Palpable peripheral pulses bilaterally. No calf pain or tenderness noted. Heart hugger in place with patient demonstrating appropriate use. Knee-high VIJAY hose and sequential compression devices in place to his bilateral lower extremities. GASTROINTESTINAL: Abdomen soft, nontender, nondistended. Active bowel sounds present 4 quadrants. Tolerating diet. Passing flatus. No guarding or rigidity. GENITOURINARY: Hubbard present draining clear, yellow urine. Urine output 995 mL in the last 8 hours. INTEGUMENTARY: Skin is warm and dry with no evidence of clubbing or cyanosis. Midline sternal incision clean dry and well approximated, covered with dry intact dressing. Left lower extremity EVH sites well approximated without redness or drainage. Left arm radial artery harvest sites clean, dry and ap proximated. No drainage or redness is present. NEUROLOGIC: Cranial nerves II through XII intact. No focal deficits. MUSKULOSKELETAL: Able to move all extremities, strength equal bilaterally, generalized weakness. PSYCHIATRIC: Alert and oriented to person place and time, appropriate affect, intact judgment and insight. INVASIVE LINES AND TUBES: Mediastinal/left pleural chest tubes present and connected to low continuous wall suction, no air leaks present. Mediastinal tube with 100 mL of thin serosanguineous drainage overnight, 250 mL output in the last 24 hours. Left pleural chest tube with 130 mL of thin serosanguineous drainage overnight, 300 mL output in the last 24 hours. Right internal jugular Cordis, right radial arterial line present. L current CVP pressure 4 mmHg. Left arm AARON drain in place with scant thin serosanguineous drainage, 10 mL output in the last 8 hours. - Allied health notes Allied health notes reviewed: nursing - Labs CBC & Chem 7: 03/23/24 04:20 03/23/24 04:20 Labs: Abnormal Lab Results - Last 24 Hours (Table) 03/22/24 03/22/24 03/22/24 Range/Units 09:02 09:57 12:04 RBC (4.30-5.90) m/uL Hgb (13.0-17.5) gm/dL Hct (39.0-53.0) % Neutrophils # (1.3-7.7) k/uL Lymphocytes # (1.0-4.8) k/uL Sodium (137-145) mmol/L Glucose (74-99) mg/dL POC Glucose (mg/dL) 172 H 153 H 124 H (70-110) mg/dL Calcium (8.4-10.2) mg/dL Total Bilirubin (0.2-1.3) mg/dL Total Protein (6.3-8.2) g/dL Albumin (3.5-5.0) g/dL 03/22/24 03/22/24 03/22/24 Range/Units 13:04 14:08 16:47 RBC (4.30-5.90) m/uL Hgb (13.0-17.5) gm/dL Hct (39.0-53.0) % Neutrophils # (1.3-7.7) k/uL Lymphocytes # (1.0-4.8) k/uL Sodium (137-145) mmol/L Glucose (74-99) mg/dL POC Glucose (mg/dL) 143 H 116 H 132 H (70-110) mg/dL Calcium (8.4-10.2) mg/dL Total Bilirubin (0.2-1.3) mg/dL Total Protein (6.3-8.2) g/dL Albumin (3.5-5.0) g/dL 03/22/24 03/22/24 03/22/24 Range/Units 18:18 19:04 22:12 RBC (4.30-5.90) m/uL Hgb (13.0-17.5) gm/dL Hct (39.0-53.0) % Neutrophils # (1.3-7.7) k/uL Lymphocytes # (1.0-4.8) k/uL Sodium (137-145) mmol/L Glucose (74-99) mg/dL POC Glucose (mg/dL) 140 H 133 H 118 H (70-110) mg/dL Calcium (8.4-10.2) mg/dL Total Bilirubin (0.2-1.3) mg/dL Total Protein (6.3-8.2) g/dL Albumin (3.5-5.0) g/dL 03/23/24 03/23/24 03/23/24 Range/Units 02:02 03:01 04:04 RBC (4.30-5.90) m/uL Hgb (13.0-17.5) gm/dL Hct (39.0-53.0) % Neutrophils # (1.3-7.7) k/uL Lymphocytes # (1.0-4.8) k/uL Sodium (137-145) mmol/L Glucose (74-99) mg/dL POC Glucose (mg/dL) 112 H 112 H 111 H (70-110) mg/dL Calcium (8.4-10.2) mg/dL Total Bilirubin (0.2-1.3) mg/dL Total Protein (6.3-8.2) g/dL Albumin (3.5-5.0) g/dL 03/23/24 03/23/24 03/23/24 Range/Units 04:20 04:20 05:08 RBC 3.28 L (4.30-5.90) m/uL Hgb 10.1 L (13.0-17.5) gm/dL Hct 29.9 L (39.0-53.0) % Neutrophils # 7.8 H (1.3-7.7) k/uL Lymphocytes # 0.9 L (1.0-4.8) k/uL Sodium 131 L (137-145) mmol/L Glucose 105 H (74-99) mg/dL POC Glucose (mg/dL) 115 H (70-110) mg/dL Calcium 8.2 L (8.4-10.2) mg/dL Total Bilirubin 1.5 H (0.2-1.3) mg/dL Total Protein 4.8 L (6.3-8.2) g/dL Albumin 3.1 L (3.5-5.0) g/dL 03/23/24 Range/Units 06:53 RBC (4.30-5.90) m/uL Hgb (13.0-17.5) gm/dL Hct (39.0-53.0) % Neutrophils # (1.3-7.7) k/uL Lymphocytes # (1.0-4.8) k/uL Sodium (137-145) mmol/L Glucose (74-99) mg/dL POC Glucose (mg/dL) 120 H (70-110) mg/dL Calcium (8.4-10.2) mg/dL Total Bilirubin (0.2-1.3) mg/dL Total Protein (6.3-8.2) g/dL Albumin (3.5-5.0) g/dL - Imaging and Cardiology Chest x-ray: report reviewed, image reviewed Assessment and Plan Assessment: Multivessel coronary artery disease, status post four-vessel off-pump coronary artery bypass grafting surgery Unstable angina Diabetes mellitus type 2, noncompliant with taking medication, hemoglobin A1c November 2023 7.7% Peripheral neuropathy Remote history of EtOH abuse, quit drinking in 2007 Lifetime non-smoker with a preoperative FEV1 102% of predicted value Occasional marijuana use Acute blood loss anemia, expected given hemodilution Plan: Continue to maximize medical therapy with aspirin, statin, Plavix, and beta- joleen. Will increase metoprolol tartrate to 25 mg p.o. twice daily with hold parameters. Continue amlodipine 2.5 mg p.o. daily at noon with hold parameters for radial artery spasm prophylaxis. Remove right IJ cordis. Will monitor daily labs and chest x-rays. Electrolyte replacement per protocol. Encourage incentive spirometry use 10 times every hour while awake. Bronchodilators per pulmonology/critical care management. Increase activity, ambulate as tolerated. PT/OT/cardiac rehab following. Pain control per current medication regimen. Discontinue oxycodone once chest tubes have been removed. Insulin management per internal medicine. Patient should remain on IV insulin for another 24 hours, then may transition to subcutaneous insulin per protocol. Hemoglobin A1c in November 2023 7.7%. We will remove his chest tubes today. Remove Hubbard catheter, continue to record strict accurate intake and output. Bladder scan every 6 hours and as needed postvoid residuals. May straight cath for greater than 300 mL of urine. Daily weights. Discharge planning is in place. Home health care consulted. Lasix 20 mg IV x 1 now. Remove right radial arterial line. Transfer orders have been placed to third floor cardiac stepdown unit. More recommendations to follow based on patient's clinical course. Time with Patient: Greater than 30
[2024-03-23] MEDS: METOPROLOL TARTRATE 25 MG TAB PO SCH (08:45)
[2024-03-23] MEDS: amLODIPine 2.5 MG TAB PO SCH (10:20)
--- NOTE | 2024-03-23 11:01 | P.PN ---
Subjective Progress Note Date: 03/23/24 The patient is seen today March 21, 2024 in follow-up in the intensive care unit. He is status post off-pump coronary artery bypass grafting x 4 with a LAWRENCE to the LAD, left radial artery sequential to the OM1 and OM 2, SVG to the PDA. He is intubated on the mechanical ventilator and assist-control mode at a rate of 14, tidal volume 500, FiO2 50% and a PEEP of 5. Arterial blood gases revealed a PaO2 of 366, pCO2 42 and a pH of 7.38 on 100% FiO2. He has a right IJ Exeter-Jim catheter in place. Cardiac output 5.9. Cardiac index 2.8. PA pressure 23/16, CVP of 9. Chest x-ray reveals atelectatic changes in the bases. Mediastinal and left chest tubes are secured in place. He is currently on Pr ecedex at 0.4 mcg/kg/h. Propofol at 40 mcg/kg/min. Cardizem drip at 5 mg/h. Nitroglycerin drip at 5 mcg/min. Normal saline 0.9% at 50 mL/h. Heparin for DVT prophylaxis. White count 11.3. Hemoglobin 12.2. Platelets 207. Sodium 136. Potassium 3.9. Bicarb 22. BUN 14. Creatinine 0.68. Glucose 106. The patient is seen today 03/22/2024 in follow-up in the intensive care unit. Postoperative day #1. He is doing very well. He is sitting up in a chair at the bedside. Awake and alert in no acute distress. He is maintaining good O2 saturations in the 90s on room air. He is working well with the incentive spirometer. He is on normal saline at 40 mL/h. He still on insulin drip at 2.5 units/h. Cardiac output 5.2. Cardiac index 2.5. CVP 4. Mediastinal and left chest tubes remain in place. Chest x-ray reveals residual mild pulmonary vascular congestion. White count 12.9. Hemoglobin 11.5. Platelets 247. Sodium 132. Potassium 4.1. Bicarb 23. BUN 13. Creatinine 0.63. Glucose 115. He is continued on bronchodilators. Heparin for DVT prophylaxis. The patient is seen today March 23, 2024 in follow-up in the intensive care unit. Postoperative day #2. He is currently sitting up in a chair at the bedside. Awake and alert in no acute distress. Maintaining good O2 saturations in the 90s on room air. He has normal saline at KVO. He is continued on bronchodilators. Heparin for DVT prophylaxis. White count 9.8. Hemoglobin 10.1. Platelets 184. Sodium 131. Potassium 4.3. Bicarb 23. BUN 13. Creatinine 0.78. Glucose 105. Chest x-ray reveals similar pulmonary vascular congestion. He continues to work well with his incentive spirometer. Chest tubes have been removed. Objective - Vital Signs Vital signs: Vital Signs Temp 98.2 F 03/23/24 08:00 Pulse 85 03/23/24 10:00 Resp 15 03/23/24 10:00 BP 130/66 03/23/24 10:00 Pulse Ox 94 L 03/23/24 10:00 FiO2 40 03/21/24 15:21 Intake & Output 03/22/24 03/23/24 03/23/24 18:59 06:59 18:59 Intake Total 1947.349 475.75 492 Output Total 740 1950 900 Balance 1207.349 -1474.25 -408 Weight 89.1 kg 92.5 kg Intake: IV 544 468 92 CO/CI 20 Pressure Bag 84 78 12 Sodium Chloride 0.9% 1, 440 390 80 000 ml @ 20 mls/hr IV . Q24H REYES Rx#:[id number] Intake, IV Titration 23.349 7.75 Amount Insulin Regular 100 unit 23.349 7.75 In Sodium Chloride 0.9% 100 ml @ Per Protocol IV .Q0M REYES Rx#:[id number] Oral 1380 400 Output: Chest Tube Drainage 210 340 Chest Tube Left Pleural 80 190 Chest Tube Mediastinal 130 150 Drainage 20 Left Arm 20 Urine 510 1610 900 Other: Voiding Method Indwelling Catheter Indwelling Catheter Indwelling Catheter ABP, PAP, CO, CI - Last Documented Arterial Blood Pressure 123/41 Pulmonary Artery Pressure 9/1 Cardiac Output 5.2 Cardiac Index 2.5 - Exam GENERAL EXAM: Awake, 63-year-old male patient, on room air, up in a chair, comfortable in no apparent distress. HEAD: Normocephalic. EYES: Normal reaction of pupils, equal size. NOSE: Clear with pink turbinates. THROAT: No erythema or exudates. NECK: No masses, no JVD. CHEST: Sternal dressing dry and intact. Heart hugger in place LUNGS: Equal air entry with no crackles, wheeze, rhonchi or dullness. CVS: S1 and S2 normal with no audible murmur, regular rhythm. ABDOMEN: No hepatosplenomegaly, no guarding or rigidity. SPINE: No scoliosis or deformity SKIN: No rashes CENTRAL NERVOUS SYSTEM: No focal deficits, tone is normal in all 4 extremities. EXTREMITIES: Left upper extremity in Ignacio wrap. IGNACIO wraps to the bilateral lower extremities. No clubbing, no cyanosis. Peripheral pulses are intact. - Labs CBC & Chem 7: 03/23/24 04:20 03/23/24 04:20 Labs: Abnormal Lab Results - Last 24 Hours (Table) 03/22/24 03/22/24 03/22/24 Range/Units 12:04 13:04 14:08 RBC (4.30-5.90) m/uL Hgb (13.0-17.5) gm/dL Hct (39.0-53.0) % Neutrophils # (1.3-7.7) k/uL Lymphocytes # (1.0-4.8) k/uL Sodium (137-145) mmol/L Glucose (74-99) mg/dL POC Glucose (mg/dL) 124 H 143 H 116 H (70-110) mg/dL Calcium (8.4-10.2) mg/dL Total Bilirubin (0.2-1.3) mg/dL Total Protein (6.3-8.2) g/dL Albumin (3.5-5.0) g/dL 03/22/24 03/22/24 03/22/24 Range/Units 16:47 18:18 19:04 RBC (4.30-5.90) m/uL Hgb (13.0-17.5) gm/dL Hct (39.0-53.0) % Neutrophils # (1.3-7.7) k/uL Lymphocytes # (1.0-4.8) k/uL Sodium (137-145) mmol/L Glucose (74-99) mg/dL POC Glucose (mg/dL) 132 H 140 H 133 H (70-110) mg/dL Calcium (8.4-10.2) mg/dL Total Bilirubin (0.2-1.3) mg/dL Total Protein (6.3-8.2) g/dL Albumin (3.5-5.0) g/dL 03/22/24 03/23/24 03/23/24 Range/Units 22:12 02:02 03:01 RBC (4.30-5.90) m/uL Hgb (13.0-17.5) gm/dL Hct (39.0-53.0) % Neutrophils # (1.3-7.7) k/uL Lymphocytes # (1.0-4.8) k/uL Sodium (137-145) mmol/L Glucose (74-99) mg/dL POC Glucose (mg/dL) 118 H 112 H 112 H (70-110) mg/dL Calcium (8.4-10.2) mg/dL Total Bilirubin (0.2-1.3) mg/dL Total Protein (6.3-8.2) g/dL Albumin (3.5-5.0) g/dL 03/23/24 03/23/24 03/23/24 Range/Units 04:04 04:20 04:20 RBC 3.28 L (4.30-5.90) m/uL Hgb 10.1 L (13.0-17.5) gm/dL Hct 29.9 L (39.0-53.0) % Neutrophils # 7.8 H (1.3-7.7) k/uL Lymphocytes # 0.9 L (1.0-4.8) k/uL Sodium 131 L (137-145) mmol/L Glucose 105 H (74-99) mg/dL POC Glucose (mg/dL) 111 H (70-110) mg/dL Calcium 8.2 L (8.4-10.2) mg/dL Total Bilirubin 1.5 H (0.2-1.3) mg/dL Total Protein 4.8 L (6.3-8.2) g/dL Albumin 3.1 L (3.5-5.0) g/dL 03/23/24 03/23/24 Range/Units 05:08 06:53 RBC (4.30-5.90) m/uL Hgb (13.0-17.5) gm/dL Hct (39.0-53.0) % Neutrophils # (1.3-7.7) k/uL Lymphocytes # (1.0-4.8) k/uL Sodium (137-145) mmol/L Glucose (74-99) mg/dL POC Glucose (mg/dL) 115 H 120 H (70-110) mg/dL Calcium (8.4-10.2) mg/dL Total Bilirubin (0.2-1.3) mg/dL Total Protein (6.3-8.2) g/dL Albumin (3.5-5.0) g/dL Assessment and Plan Assessment: Triple-vessel coronary artery disease status post coronary artery bypass grafting x 4 utilizing a LAWRENCE to the LAD, left radial arterial graft to the OM1 and OM 2, SVG to the PDA. Postoperative day #2 Mechanical ventilation management, expected outcome of surgery Diabetes mellitus, type II Peripheral neuropathy Remote history of alcoholism, quit in 2007 Non-smoker, FEV1 value within normal limits Plan: The patient was seen and evaluated Chest x-ray, labs, and medications reviewed Working well with the incentive spirometer Transfer to [address] once cleared by CT services We will continue to follow I have personally seen and examined the patient, performed the documentation and the assessment and plan as written. Number of minutes spent on the visit: 10.
[2024-03-23 11:23] LABS: Glucose,Whole Blood 132 mg/dL (70-110)
[2024-03-23] MEDS: INSULIN ASPART (NovoLOG) 100 UNIT/ML VIAL SQ SCH (11:23)
--- NOTE | 2024-03-23 12:22 | P.PN ---
Subjective Progress Note Date: 03/23/24 63-year-old gentleman with coronary artery disease status post CABG postop day #2. He had three-vessel coronary artery disease and underwent bypass surgery with LAWRENCE to LAD venous graft to OM1 and OM 2 and right coronary artery. He remains in sinus rhythm stable hemodynamically and is free of cardiac symp toms. On exam: Comfortable at rest vital signs are stable chest exam reveals diminished air entry at the bases heart exam reveals first and second heart sounds no gallop no murmur abdomen is soft examination extremities did not reveal any edema peripheral pulses are felt Labs show a hemoglobin of 10 and creatinine of 0.78 Assessment and plan: Coronary artery disease status post bypass surgery postop day #2 Patient is doing well in sinus rhythm stable hemodynamically and will continue current medications Objective - Vital Signs Vital signs: Vital Signs Temp 98.2 F 03/23/24 08:00 Pulse 79 03/23/24 12:11 Resp 17 03/23/24 12:00 BP 122/65 03/23/24 12:00 Pulse Ox 97 03/23/24 12:00 FiO2 40 03/21/24 15:21 Intake & Output 03/22/24 03/23/24 03/23/24 18:59 06:59 18:59 Intake Total 1947.349 475.75 612 Output Total 740 1950 1475 Balance 1207.349 -1474.25 -863 Weight 89.1 kg 92.5 kg Intake: IV 544 468 212 CO/CI 20 Magnesium Sulfate-D5w Pmx 100 1 gm In Dextrose/Water 1 100ml.bag @ 100 mls/hr IVPB ONCE ONE Rx#: [id number] Pressure Bag 84 78 12 Sodium Chloride 0.9% 1, 440 390 100 000 ml @ 20 mls/hr IV . Q24H REYES Rx#:[id number] Intake, IV Titration 23.349 7.75 Amount Insulin Regular 100 unit 23.349 7.75 In Sodium Chloride 0.9% 100 ml @ Per Protocol IV .Q0M REYES Rx#:[id number] Oral 1380 400 Output: Chest Tube Drainage 210 340 Chest Tube Left Pleural 80 190 Chest Tube Mediastinal 130 150 Drainage 20 Left Arm 20 Urine 510 1610 1475 Other: Voiding Method Indwelling Catheter Indwelling Catheter Indwelling Catheter ABP, PAP, CO, CI - Last Documented Arterial Blood Pressure 123/41 Pulmonary Artery Pressure 9/1 Cardiac Output 5.2 Cardiac Index 2.5 - Labs CBC & Chem 7: 03/23/24 04:20 03/23/24 04:20 Labs: Abnormal Lab Results - Last 24 Hours (Table) 03/22/24 03/22/24 03/22/24 Range/Units 13:04 14:08 16:47 RBC (4.30-5.90) m/uL Hgb (13.0-17.5) gm/dL Hct (39.0-53.0) % Neutrophils # (1.3-7.7) k/uL Lymphocytes # (1.0-4.8) k/uL Sodium (137-145) mmol/L Glucose (74-99) mg/dL POC Glucose (mg/dL) 143 H 116 H 132 H (70-110) mg/dL Calcium (8.4-10.2) mg/dL Total Bilirubin (0.2-1.3) mg/dL Total Protein (6.3-8.2) g/dL Albumin (3.5-5.0) g/dL 03/22/24 03/22/24 03/22/24 Range/Units 18:18 19:04 22:12 RBC (4.30-5.90) m/uL Hgb (13.0-17.5) gm/dL Hct (39.0-53.0) % Neutrophils # (1.3-7.7) k/uL Lymphocytes # (1.0-4.8) k/uL Sodium (137-145) mmol/L Glucose (74-99) mg/dL POC Glucose (mg/dL) 140 H 133 H 118 H (70-110) mg/dL Calcium (8.4-10.2) mg/dL Total Bilirubin (0.2-1.3) mg/dL Total Protein (6.3-8.2) g/dL Albumin (3.5-5.0) g/dL 03/23/24 03/23/24 03/23/24 Range/Units 02:02 03:01 04:04 RBC (4.30-5.90) m/uL Hgb (13.0-17.5) gm/dL Hct (39.0-53.0) % Neutrophils # (1.3-7.7) k/uL Lymphocytes # (1.0-4.8) k/uL Sodium (137-145) mmol/L Glucose (74-99) mg/dL POC Glucose (mg/dL) 112 H 112 H 111 H (70-110) mg/dL Calcium (8.4-10.2) mg/dL Total Bilirubin (0.2-1.3) mg/dL Total Protein (6.3-8.2) g/dL Albumin (3.5-5.0) g/dL 03/23/24 03/23/24 03/23/24 Range/Units 04:20 04:20 05:08 RBC 3.28 L (4.30-5.90) m/uL Hgb 10.1 L (13.0-17.5) gm/dL Hct 29.9 L (39.0-53.0) % Neutrophils # 7.8 H (1.3-7.7) k/uL Lymphocytes # 0.9 L (1.0-4.8) k/uL Sodium 131 L (137-145) mmol/L Glucose 105 H (74-99) mg/dL POC Glucose (mg/dL) 115 H (70-110) mg/dL Calcium 8.2 L (8.4-10.2) mg/dL Total Bilirubin 1.5 H (0.2-1.3) mg/dL Total Protein 4.8 L (6.3-8.2) g/dL Albumin 3.1 L (3.5-5.0) g/dL 03/23/24 03/23/24 Range/Units 06:53 11:21 RBC (4.30-5.90) m/uL Hgb (13.0-17.5) gm/dL Hct (39.0-53.0) % Neutrophils # (1.3-7.7) k/uL Lymphocytes # (1.0-4.8) k/uL Sodium (137-145) mmol/L Glucose (74-99) mg/dL POC Glucose (mg/dL) 120 H 132 H (70-110) mg/dL Calcium (8.4-10.2) mg/dL Total Bilirubin (0.2-1.3) mg/dL Total Protein (6.3-8.2) g/dL Albumin (3.5-5.0) g/dL
[2024-03-23 16:35] LABS: Glucose,Whole Blood 129 mg/dL (70-110)
--- NOTE | 2024-03-23 17:38 | P.PN ---
Subjective Progress Note Date: 03/23/24 03/22/2024 this is a 63-year-old gentleman status post CABG x 4V, postop day #1. Tolerated procedure well ;telemetry normal sinus rhythm. Maintaining O2 sats in the 90s on room air. Chest x-ray reports residual mild pulmonary vascular congestion.Cardiac output 5.2, cardiac index 2.5, currently on insulin and Cardizem drips. Glucose 115. afebrile, WBC 12.9. Hemoglobin 11.5, platelets 247. Sodium 132, potassium 4.1, magnesium 1.6, bicarb 23, BUN 13, creatinine 0.63. 03/23/2024 CABG postop day #2, telemetry sinus rhythm. Maintaining O2 sats in the 90s on room air. Chest x-ray reporting similar pulmonary vascular congestion. Afebrile, normal WBC, hemoglobin 10.1, platelets 184, electrolytes and renal function within normal limits. Patient currently in the process of being declined and getting chest tubes out. Blood sugars controlled. Objective - Vital Signs Vital signs: Vital Signs Temp 98.6 F 03/23/24 16:00 Pulse 86 03/23/24 16:08 Resp 17 03/23/24 16:00 BP 131/65 03/23/24 16:00 Pulse Ox 98 03/23/24 16:00 FiO2 40 03/21/24 15:21 Intake & Output 03/22/24 03/23/24 03/23/24 18:59 06:59 18:59 Intake Total 1947.349 475.75 1462 Output Total 740 1950 1765 Balance 1207.349 -1474.25 -303 Weight 89.1 kg 92.5 kg Intake: IV 544 468 212 CO/CI 20 Magnesium Sulfate-D5w Pmx 100 1 gm In Dextrose/Water 1 100ml.bag @ 100 mls/hr IVPB ONCE ONE Rx#: [id number] Pressure Bag 84 78 12 Sodium Chloride 0.9% 1, 440 390 100 000 ml @ 20 mls/hr IV . Q24H [facility] Rx#:[id number] Intake, IV Titration 23.349 7.75 Amount Insulin Regular 100 unit 23.349 7.75 In Sodium Chloride 0.9% 100 ml @ Per Protocol IV .Q0M [facility] Rx#:[id number] Oral 1380 1250 Output: Chest Tube Drainage 210 340 Chest Tube Left Pleural 80 190 Chest Tube Mediastinal 130 150 Drainage 20 Left Arm 20 Urine 510 1610 1765 Other: Voiding Method Indwelling Catheter Indwelling Catheter Indwelling Catheter # Bowel Movements 1 ABP, PAP, CO, CI - Last Documented Arterial Blood Pressure 123/41 Pulmonary Artery Pressure 9/1 Cardiac Output 5.2 Cardiac Index 2.5 - Exam PHYSICAL EXAM: VITAL SIGNS: [As above] GENERAL: Alert and oriented x 3, sitting up in chair, no acute distress wearing his bear hugger HEENT: Normocephalic ,conjunctivae normal. eyes normal. MMM. NECK: Supple, no JVD CARDIOVASCULAR: S1, S2 regular. No murmur RESPIRATION: Unlabored, equal air entry ,breath sounds diminished in the bases. Mediastinal ,left chest tube present ABDOMEN: Soft, nondistended, nontender . No guarding. Positive bowel sounds LEGS: Bilateral lower extremities Ignacio wrapped, positive DP pulses. NERVOUS SYSTEM: Cranial N 2-12 grossly normal. No focal deficits. Strength and sensation grossly intact. Skin: Warm and dry, no rash - Labs CBC & Chem 7: 03/23/24 04:20 03/23/24 04:20 Labs: Abnormal Lab Results - Last 24 Hours (Table) 03/22/24 03/22/24 03/22/24 Range/Units 18:18 19:04 22:12 RBC (4.30-5.90) m/uL Hgb (13.0-17.5) gm/dL Hct (39.0-53.0) % Neutrophils # (1.3-7.7) k/uL Lymphocytes # (1.0-4.8) k/uL Sodium (137-145) mmol/L Glucose (74-99) mg/dL POC Glucose (mg/dL) 140 H 133 H 118 H (70-110) mg/dL Calcium (8.4-10.2) mg/dL Total Bilirubin (0.2-1.3) mg/dL Total Protein (6.3-8.2) g/dL Albumin (3.5-5.0) g/dL 03/23/24 03/23/24 03/23/24 Range/Units 02:02 03:01 04:04 RBC (4.30-5.90) m/uL Hgb (13.0-17.5) gm/dL Hct (39.0-53.0) % Neutrophils # (1.3-7.7) k/uL Lymphocytes # (1.0-4.8) k/uL Sodium (137-145) mmol/L Glucose (74-99) mg/dL POC Glucose (mg/dL) 112 H 112 H 111 H (70-110) mg/dL Calcium (8.4-10.2) mg/dL Total Bilirubin (0.2-1.3) mg/dL Total Protein (6.3-8.2) g/dL Albumin (3.5-5.0) g/dL 03/23/24 03/23/24 03/23/24 Range/Units 04:20 04:20 05:08 RBC 3.28 L (4.30-5.90) m/uL Hgb 10.1 L (13.0-17.5) gm/dL Hct 29.9 L (39.0-53.0) % Neutrophils # 7.8 H (1.3-7.7) k/uL Lymphocytes # 0.9 L (1.0-4.8) k/uL Sodium 131 L (137-145) mmol/L Glucose 105 H (74-99) mg/dL POC Glucose (mg/dL) 115 H (70-110) mg/dL Calcium 8.2 L (8.4-10.2) mg/dL Total Bilirubin 1.5 H (0.2-1.3) mg/dL Total Protein 4.8 L (6.3-8.2) g/dL Albumin 3.1 L (3.5-5.0) g/dL 03/23/24 03/23/24 03/23/24 Range/Units 06:53 11:21 16:34 RBC (4.30-5.90) m/uL Hgb (13.0-17.5) gm/dL Hct (39.0-53.0) % Neutrophils # (1.3-7.7) k/uL Lymphocytes # (1.0-4.8) k/uL Sodium (137-145) mmol/L Glucose (74-99) mg/dL POC Glucose (mg/dL) 120 H 132 H 129 H (70-110) mg/dL Calcium (8.4-10.2) mg/dL Total Bilirubin (0.2-1.3) mg/dL Total Protein (6.3-8.2) g/dL Albumin (3.5-5.0) g/dL Assessment and Plan Assessment: Multi vessel CAD, status post CABG x 4 vessels Acute blood loss anemia, expected outcome Diabetes mellitus type 2, prior A1c of 01/18 7.7, currently A1c 5.8. Peripheral neuropathy History of alcoholism, quit in 2007 Occasional marijuana use Plan: Continue on current medication regimen, monitoring and symptomatic treatment. Maintain aggressive pulmonary toileting with incentive spirometer reinforced. increase activity as tolerated. Potential transfer to 3 S. telemetry today. Transition to NovoLog sliding scale with close monitoring of Accu-Cheks. The impression and plan of care has been dictated as directed. : I performed a history and examination of this patient, discussed the same with the dictator. I agree with the dictator's note ,documented as a scribe. Any additional findings or plans will be noted.
[2024-03-23 20:14] LABS: Glucose,Whole Blood 135 mg/dL (70-110)
[2024-03-23 20:22] LABS: Hepatitis A Antibody IgM Nonreactive (Nonreactive); Hepatitis B Core IgM Nonreactive (Nonreactive); Hepatitis B Surface Antigen Nonreactive (Nonreactive); Hepatitis C IgG Antibody Nonreactive (Nonreactive)
[2024-03-23] MEDS: TEMAZEPAM 15 MG CAP PO SCH (20:44)
[2024-03-24 06:46] LABS: Glucose,Whole Blood 121 mg/dL (70-110)
--- NOTE | 2024-03-24 07:16 | P.PN ---
Subjective Progress Note Date: 03/24/24 Principal diagnosis: Multivessel coronary artery disease, unstable angina. Past medical history significant for hyperlipidemia, diabetes mellitus type 2 noncompliant with taking medications hemoglobin A1c from November 2023 7.7%, remote history of EtOH abuse, quit drinking in 2007, occasional marijuana use, insomnia, peripheral neuropathy, and is a lifetime non-smoker. POD #3 Off-pump CABG x 4 with left internal mammary artery to left anterior descending coronary artery, sequential left radial artery to first and second obtuse marginal coronary arteries, saphenous vein graft to posterior descending coronary artery, with endovascular left radial artery harvest and endovascular harvest of the left greater saphenous vein from the left thigh. Clip left atrial appendage 35 mm AtriCure clip. Postoperative acute blood loss anemia, expected given hemodilution. The patient was seen and examined in follow-up today March 24, 2024 at his bedside in the intensive care unit. He has transfer orders to the third floor cardiac stepdown unit, although due to lack of bed availability has been kept in the ICU at this time. He is currently sitting up to the bedside chair, is awak e, alert, oriented x 3 and is in no acute apparent distress. He had his first postoperative shower today and tolerated well. Denies any complaints of shortness of breath at this time, states his pain is well-controlled on the current pain medication regimen and is currently rating his pain 3-4 out of 10 on the pain scale. He has been up ambulating in the intensive care unit hallway with standby assistance from nursing and therapy staff and tolerating well. Oxygen saturations are 96% on room air and he is achieving 1500 mL on his incentive spirometry with encouragement. Bedside telemetry is showing normal sinus rhythm heart rate 85 bpm. Mediastinal and left pleural chest tubes were removed yesterday without incident. Discharge planning is in place. Chest x- ray results reviewed. Laboratory results remain pending. Objective - Vital Signs Vital signs: Vital Signs Temp 98.9 F 03/24/24 04:00 Pulse 96 03/24/24 04:00 Resp 20 03/24/24 04:00 BP 122/66 03/24/24 04:00 Pulse Ox 98 03/24/24 04:00 FiO2 40 03/21/24 15:21 Intake & Output 03/23/24 03/24/24 03/24/24 18:59 06:59 18:59 Intake Total 1462 Output Total 1765 975 Balance -303 -975 Weight 90.7 kg Intake: IV 212 Magnesium Sulfate-D5w Pmx 100 1 gm In Dextrose/Water 1 100ml.bag @ 100 mls/hr IVPB ONCE ONE Rx#: [id number] Pressure Bag 12 Sodium Chloride 0.9% 1, 100 000 ml @ 20 mls/hr IV . Q24H [facility] Rx#:[id number] Oral 1250 Output: Urine 1765 975 Other: Voiding Method Indwelling Catheter # Bowel Movements 1 ABP, PAP, CO, CI - Last Documented Arterial Blood Pressure 123/41 Pulmonary Artery Pressure 9/ Cardiac Output 5.2 Cardiac Index 2.5 - Exam CONSTITUTIONAL: Sitting up to the bedside chair in the intensive care unit, appears comfortable, cooperative, no apparent acute distress. HEENT: Neck is supple, no JVD, no lymphadenopathy. RESPIRATORY: Lungs sounds essentially clear throughout, diminished to his bilateral bases. Respirations are symmetrical and nonlabored. Currently on room air with oxygen saturations 96%. Able to achieve 1500 mL on his incentive spirometry. Strong cough. CARDIOVASCULAR: Regular rhythm and rate. S1 and S2 present, negative for S3, gallop or murmur. Bedside telemetry showing normal sinus rhythm heart rate 85 bpm. Sternum is stable. Palpable peripheral pulses bilaterally. No calf pain or tenderness noted. Heart hugger in place with patient demonstrating appropriate use. Knee-high VIJAY hose and sequential compression devices in place to his bilateral lower extremities. GASTROINTESTINAL: Abdomen soft, nontender, nondistended. Active bowel sounds present 4 quadrants. Tolerating diet. Passing flatus. No guarding or rigidity. Bowel movement yesterday 03/23/2024. GENITOURINARY: Continues to void. Urine output 750 mL in the last 8 hours. INTEGUMENTARY: Skin is warm and dry with no evidence of clubbing or cyanosis. Midline sternal incision clean dry and well approximated, covered with dry intact dressing. Left lower extremity EVH sites well approximated without redness or drainage. Left arm radial artery harvest sites clean, dry and approximated. No drainage or redness is present. NEUROLOGIC: Cranial nerves II through XII intact. No focal deficits. MUSKULOSKELETAL: Able to move all extremities, strength equal bilaterally, generalized weakness. PSYCHIATRIC: Alert and oriented to person place and time, appropriate affect, intact judgment and insight. - Allied health notes Allied health notes reviewed: nursing - Labs CBC & Chem 7: 03/23/24 04:20 03/23/24 04:20 Labs: Abnormal Lab Results - Last 24 Hours (Table) 03/23/24 03/23/24 03/23/24 Range/Units 04:20 11:21 16:34 Sodium 131 L (137-145) mmol/L Glucose 105 H (74-99) mg/dL POC Glucose (mg/dL) 132 H 129 H (70-110) mg/dL Calcium 8.2 L (8.4-10.2) mg/dL Total Bilirubin 1.5 H (0.2-1.3) mg/dL Total Protein 4.8 L (6.3-8.2) g/dL Albumin 3.1 L (3.5-5.0) g/dL 03/23/24 03/24/24 Range/Units 20:13 06:44 Sodium (137-145) mmol/L Glucose (74-99) mg/dL POC Glucose (mg/dL) 135 H 121 H (70-110) mg/dL Calcium (8.4-10.2) mg/dL Total Bilirubin (0.2-1.3) mg/dL Total Protein (6.3-8.2) g/dL Albumin (3.5-5.0) g/dL - Imaging and Cardiology Chest x-ray: report reviewed, image reviewed Assessment and Plan Assessment: Multivessel coronary artery disease, status post four-vessel off-pump coronary artery bypass grafting surgery Unstable angina Diabetes mellitus type 2, noncompliant with taking medication, hemoglobin A1c 5. 8% Peripheral neuropathy Remote history of EtOH abuse, quit drinking in 2007 Lifetime non-smoker with a preoperative FEV1 102% of predicted value Occasional marijuana use Acute blood loss anemia, expected given hemodilution Plan: Continue to maximize medical therapy with aspirin, statin, Plavix, and beta- joleen. Will increase metoprolol tartrate to 50 mg p.o. twice daily with hold parameters. Continue amlodipine 2.5 mg p.o. daily at noon with hold parameters for radial artery spasm prophylaxis. Will monitor daily labs and chest x-rays. Electrolyte replacement per protocol. Encourage incentive spirometry use 10 times every hour while awake. Bronchodilators per pulmonology/critical care management. Increase activity, ambulate as tolerated. PT/OT/cardiac rehab following. Pain control per current medication regimen. Insulin management per internal medicine. Hemoglobin A1c in November 2023 5.8%. Continue to record strict accurate intake and output. Bladder scan every 6 hours and as needed postvoid residuals. May straight cath for greater than 300 mL of urine. Daily weights. Shower daily. Discharge planning is in place. Home health care consulted. Transfer to third floor cardiac stepdown unit when bed available. More recommendations to follow based on patient's clinical course. Time with Patient: Greater than 30
[2024-03-24 07:23] LABS: HGB 10.2 gm/dL (13.0-17.5); MCH 30.5 pg (25.0-35.0); MCV 92.4 fL (80.0-100.0); Platelet Count 241 k/uL (150-450); RBC 3.35 m/uL (4.30-5.90); RDW 13.2 % (11.5-15.5)
[2024-03-24 07:36] LABS: African American GFR (CKD) >90 (>60 ml/min/1.73 sqM); Anion Gap 4 mmol/L; Blood Urea Nitrogen 18 mg/dL (9-20); Calcium 8.6 mg/dL (8.4-10.2); Carbon Dioxide 27 mmol/L (22-30); Chloride 104 mmol/L (98-107); Glucose 115 mg/dL (74-99); Non-African American GFR(CKD) >90 (>60 ml/min/1.73 sqM); Potassium 4.1 mmol/L (3.5-5.1); Sodium 135 mmol/L (137-145)
--- NOTE | 2024-03-24 08:12 | XR ---
EXAMINATION TYPE: XR chest 2V DATE OF EXAM: 03/24/2024 COMPARISON: 03/23/2024 HISTORY: 63-year-old male postop CABG TECHNIQUE: PA and lateral views FINDINGS: Median sternotomy wires with prosthetic valves. Heart borderline in size. Interstitial densities show slight improvement in the interval. Patchy opacity in the retrocardiac region. No sizable pleural ef fusion. Interval removal of the left chest tube. No appreciable pneumothorax. Nodular density in the periphery of the left base probably superimposition shadow. Reassess at follow-up. IMPRESSION: 1. Improving but residual pulmonary vascular congestion. 2. Removal of left-sided chest tube. No appreciable pneumothorax. 3. Nodular density at the periphery of the left base probably superimposition shadow. Reassess at fol low-up.
[2024-03-24] MEDS: METOPROLOL TARTRATE 50 MG TAB PO SCH (09:33)
--- NOTE | 2024-03-24 11:12 | P.PN ---
Subjective Progress Note Date: 03/24/24 Patient is doing well today. Ambulating around the unit. Lopressor was increased to 50mg BID this morning due to elevated HR in the 90s. ROS reviewed. All pertinent positives and negatives are stated above. All other systems are negative. Objective - Vital Signs Vital signs: Vital Signs Temp 98.9 F 03/24/24 04:00 Pulse 96 03/24/24 04:00 Resp 20 03/24/24 04:00 BP 122/66 03/24/24 04:00 Pulse Ox 98 03/24/24 04:00 FiO2 40 03/21/24 15:21 Intake & Output 03/23/24 03/24/24 03/24/24 18:59 06:59 18:59 Intake Total 1462 Output Total 1765 975 Balance -303 -975 Weight 90.7 kg Intake: IV 212 Magnesium Sulfate-D5w Pmx 100 1 gm In Dextrose/Water 1 100ml.bag @ 100 mls/hr IVPB ONCE ONE Rx#: [id number] Pressure Bag 12 Sodium Chloride 0.9% 1, 100 000 ml @ 20 mls/hr IV . Q24H [facility] Rx#:[id number] Oral 1250 Output: Urine 1765 975 Other: Voiding Method Indwelling Catheter # Bowel Movements 1 ABP, PAP, CO, CI - Last Documented Arterial Blood Pressure 123/41 Pulmonary Artery Pressure 9/1 Cardiac Output 5.2 Cardiac Index 2.5 - Exam Vital signs are stable. General: No acute distress. HEENT: Head exam is unremarkable. Lungs: Bilateral breath sounds present; no rhonchi, wheezes, or rales. Heart: Rate and rhythm are regular. Abdomen: Nontender. Extremities: No edema present. - Labs CBC & Chem 7: 03/24/24 07:00 03/24/24 07:00 Labs: Abnormal Lab Results - Last 24 Hours (Table) 03/23/24 03/23/24 03/23/24 Range/Units 04:20 11:21 16:34 RBC (4.30-5.90) m/uL Hgb (13.0-17.5) gm/dL Hct (39.0-53.0) % Sodium 131 L (137-145) mmol/L Glucose 105 H (74-99) mg/dL POC Glucose (mg/dL) 132 H 129 H (70-110) mg/dL Calcium 8.2 L (8.4-10.2) mg/dL Total Bilirubin 1.5 H (0.2-1.3) mg/dL Total Protein 4.8 L (6.3-8.2) g/dL Albumin 3.1 L (3.5-5.0) g/dL 03/23/24 03/24/24 03/24/24 Range/Units 20:13 06:44 07:00 RBC 3.35 L (4.30-5.90) m/uL Hgb 10.2 L (13.0-17.5) gm/dL Hct 31.0 L (39.0-53.0) % Sodium (137-145) mmol/L Glucose (74-99) mg/dL POC Glucose (mg/dL) 135 H 121 H (70-110) mg/dL Calcium (8.4-10.2) mg/dL Total Bilirubin (0.2-1.3) mg/dL Total Protein (6.3-8.2) g/dL Albumin (3.5-5.0) g/dL 03/24/24 Range/Units 07:00 RBC (4.30-5.90) m/uL Hgb (13.0-17.5) gm/dL Hct (39.0-53.0) % Sodium 135 L (137-145) mmol/L Glucose 115 H (74-99) mg/dL POC Glucose (mg/dL) (70-110) mg/dL Calcium (8.4-10.2) mg/dL Total Bilirubin (0.2-1.3) mg/dL Total Protein (6.3-8.2) g/dL Albumin (3.5-5.0) g/dL Assessment and Plan Assessment: 1. Coronary artery disease, s/p CABG, postop day 3. Plan: Continue current medication plan.
--- NOTE | 2024-03-24 11:14 | P.PN ---
Subjective Progress Note Date: 03/24/24 The patient is seen today March 21, 2024 in follow-up in the intensive care unit. He is status post off-pump coronary artery bypass grafting x 4 with a LAWRENCE to the LAD, left radial artery sequential to the OM1 and OM 2, SVG to the PDA. He is intubated on the mechanical ventilator and assist-control mode at a rate of 14, tidal volume 500, FiO2 50% and a PEEP of 5. Arterial blood gases revealed a PaO2 of 366, pCO2 42 and a pH of 7.38 on 100% FiO2. He has a right IJ [place]-Jim catheter in place. Cardiac output 5.9. Cardiac index 2.8. PA pressure 23/16, CVP of 9. Chest x-ray reveals atelectatic changes in the bases. Mediastinal and left chest tubes are secured in place. He is currently on Pr ecedex at 0.4 mcg/kg/h. Propofol at 40 mcg/kg/min. Cardizem drip at 5 mg/h. Nitroglycerin drip at 5 mcg/min. Normal saline 0.9% at 50 mL/h. Heparin for DVT prophylaxis. White count 11.3. Hemoglobin 12.2. Platelets 207. Sodium 136. Potassium 3.9. Bicarb 22. BUN 14. Creatinine 0.68. Glucose 106. The patient is seen today 03/22/2024 in follow-up in the intensive care unit. Postoperative day #1. He is doing very well. He is sitting up in a chair at the bedside. Awake and alert in no acute distress. He is maintaining good O2 saturations in the 90s on room air. He is working well with the incentive spirometer. He is on normal saline at 40 mL/h. He still on insulin drip at 2.5 units/h. Cardiac output 5.2. Cardiac index 2.5. CVP 4. Mediastinal and left chest tubes remain in place. Chest x-ray reveals residual mild pulmonary vascular congestion. White count 12.9. Hemoglobin 11.5. Platelets 247. Sodium 132. Potassium 4.1. Bicarb 23. BUN 13. Creatinine 0.63. Glucose 115. He is continued on bronchodilators. Heparin for DVT prophylaxis. The patient is seen today March 23, 2024 in follow-up in the intensive care unit. Postoperative day #2. He is currently sitting up in a chair at the bedside. Awake and alert in no acute distress. Maintaining good O2 saturations in the 90s on room air. He has normal saline at KVO. He is continued on bronchodilators. Heparin for DVT prophylaxis. White count 9.8. Hemoglobin 10.1. Platelets 184. Sodium 131. Potassium 4.3. Bicarb 23. BUN 13. Creatinine 0.78. Glucose 105. Chest x-ray reveals similar pulmonary vascular congestion. He continues to work well with his incentive spirometer. Chest tubes have been removed. The patient is seen today March 24, 2024 in follow-up in the intensive care unit. Postoperative day #3. He is awake and alert in no acute distress. Sitting up in a chair at the bedside. Denies any worsening shortness of breath, cough or congestion. He is maintaining good O2 saturations in the 90s on room air. No IV fluids. Chest x-ray continues to show improvement. He is working well with the incentive spirometer. Count 9.0. Hemoglobin 10.2. Platelets 241. Sodium 135. Potassium 4.1. Bicarb 27. BUN 18. Creatinine 0.88. Glucose 115. He is continued on bronchodilators. Heparin for DVT prophylaxis. Objective - Vital Signs Vital signs: Vital Signs Temp 98.7 F 03/24/24 08:00 Pulse 88 03/24/24 09:31 Resp 16 03/24/24 08:00 BP 119/64 03/24/24 08:00 Pulse Ox 96 03/24/24 08:00 FiO2 40 03/21/24 15:21 Intake & Output 03/23/24 03/24/24 03/24/24 18:59 06:59 18:59 Intake Total 1462 Output Total 1765 975 Balance -303 -975 Weight 90.7 kg Intake: IV 212 Magnesium Sulfate-D5w Pmx 100 1 gm In Dextrose/Water 1 100ml.bag @ 100 mls/hr IVPB ONCE ONE Rx#: [id number] Pressure Bag 12 Sodium Chloride 0.9% 1, 100 000 ml @ 20 mls/hr IV . Q24H [facility] Rx#:[id number] Oral 1250 Output: Urine 1765 975 Other: Voiding Method Indwelling Catheter Urinal # Bowel Movements 1 ABP, PAP, CO, CI - Last Documented Arterial Blood Pressure 123/41 Pulmonary Artery Pressure 9/1 Cardiac Output 5.2 Cardiac Index 2.5 - Exam GENERAL EXAM: Awake, alert, very pleasant 63-year-old male, on room air, up in a chair, comfortable in no apparent distress. HEAD: Normocephalic. EYES: Normal reaction of pupils, equal size. NOSE: Clear with pink turbinates. THROAT: No erythema or exudates. NECK: No masses, no JVD. CHEST: Sternal dressing dry and intact. Heart hugger in place LUNGS: Equal air entry with no crackles, wheeze, rhonchi or dullness. CVS: S1 and S2 normal with no audible murmur, regular rhythm. ABDOMEN: No hepatosplenomegaly, no guarding or rigidity. SPINE: No scoliosis or deformity SKIN: No rashes CENTRAL NERVOUS SYSTEM: No focal deficits, tone is normal in all 4 extremities. EXTREMITIES: No clubbing, no cyanosis. Peripheral pulses are intact. - Labs CBC & Chem 7: 03/24/24 07:00 03/24/24 07:00 Labs: Abnormal Lab Results - Last 24 Hours (Table) 03/23/24 03/23/24 03/23/24 Range/Units 04:20 11:21 16:34 RBC (4.30-5.90) m/uL Hgb (13.0-17.5) gm/dL Hct (39.0-53.0) % Sodium 131 L (137-145) mmol/L Glucose 105 H (74-99) mg/dL POC Glucose (mg/dL) 132 H 129 H (70-110) mg/dL Calcium 8.2 L (8.4-10.2) mg/dL Total Bilirubin 1.5 H (0.2-1.3) mg/dL Total Protein 4.8 L (6.3-8.2) g/dL Albumin 3.1 L (3.5-5.0) g/dL 03/23/24 03/24/24 03/24/24 Range/Units 20:13 06:44 07:00 RBC 3.35 L (4.30-5.90) m/uL Hgb 10.2 L (13.0-17.5) gm/dL Hct 31.0 L (39.0-53.0) % Sodium (137-145) mmol/L Glucose (74-99) mg/dL POC Glucose (mg/dL) 135 H 121 H (70-110) mg/dL Calcium (8.4-10.2) mg/dL Total Bilirubin (0.2-1.3) mg/dL Total Protein (6.3-8.2) g/dL Albumin (3.5-5.0) g/dL 03/24/24 Range/Units 07:00 RBC (4.30-5.90) m/uL Hgb (13.0-17.5) gm/dL Hct (39.0-53.0) % Sodium 135 L (137-145) mmol/L Glucose 115 H (74-99) mg/dL POC Glucose (mg/dL) (70-110) mg/dL Calcium (8.4-10.2) mg/dL Total Bilirubin (0.2-1.3) mg/dL Total Protein (6.3-8.2) g/dL Albumin (3.5-5.0) g/dL Assessment and Plan Assessment: Triple-vessel coronary artery disease status post coronary artery bypass grafting x 4 utilizing a LAWRENCE to the LAD, left radial arterial graft to the OM1 and OM 2, SVG to the PDA. Postoperative day #3 Mechanical ventilation management, expected outcome of surgery Diabetes mellitus, type II Peripheral neuropathy Remote history of alcoholism, quit in 2007 Non-smoker, FEV1 value within normal limits Plan: The patient was seen and evaluated Chest x-ray, labs, and medications reviewed Stable and now on room air Working well with the incentive spirometer Possible discharge in a.m. We will continue to follow I have personally seen and examined the patient, performed the documentation and the assessment and plan as written. Number of minutes spent on the visit: 10.
[2024-03-24 11:21] LABS: Glucose,Whole Blood 222 mg/dL (70-110)
[2024-03-24 16:16] LABS: Glucose,Whole Blood 90 mg/dL (70-110)
[2024-03-24 20:48] LABS: Glucose,Whole Blood 160 mg/dL (70-110)
[2024-03-25] MEDS ORDERED: KETOROLAC 15 MG/ML 1 ML VIAL ONE
[2024-03-25] MEDS ORDERED: HEPARIN SODIUM,PORCINE 5,000 UNIT/ML 1 ML VIAL ONE
[2024-03-25 04:36] LABS: HCT 27.7 % (39.0-53.0); HGB 9.3 gm/dL (13.0-17.5); MCH 31.1 pg (25.0-35.0); MCHC 33.6 g/dL (31.0-37.0); MCV 92.5 fL (80.0-100.0); Mean Platelet Volume 7.8; Platelet Count 228 k/uL (150-450); RBC 2.99 m/uL (4.30-5.90); RDW 13.7 % (11.5-15.5); WBC 8.4 k/uL (3.8-10.6)
[2024-03-25 05:16] LABS: African American GFR (CKD) >90 (>60 ml/min/1.73 sqM); Anion Gap 4 mmol/L; Blood Urea Nitrogen 22 mg/dL (9-20); Calcium 8.5 mg/dL (8.4-10.2); Carbon Dioxide 26 mmol/L (22-30); Chloride 104 mmol/L (98-107); Glucose 101 mg/dL (74-99); Non-African American GFR(CKD) >90 (>60 ml/min/1.73 sqM); Sodium 134 mmol/L (137-145)
[2024-03-25 06:11] LABS: Glucose,Whole Blood 112 mg/dL (70-110)
[2024-03-25 08:29] VITALS: PULSE 78
[2024-03-25 08:56] VITALS: BP 135/79; RESP 18; TEMP 98
--- NOTE | 2024-03-25 09:20 | XR ---
EXAMINATION TYPE: XR chest 1V portable DATE OF EXAM: 03/25/2024 Comparison: 03/24/2024, 03/19/2024 Clinical History: 63-year-old male postop CABG Findings: Median sternotomy wires with post-CABG clips. Heart remains mildly enlarged. Aeration continues to im prove. Some residual minimal strandy atelectasis at the left base. Possible trace right effusion. Harpreet e nodular density at the periphery of the left lower lung remains. Impression: Mild cardiomegaly with continued improving aeration. Nodular density at the periphery of the left low er lung of unclear etiology as no suspicious nodule was seen here on the patient's recent 03/19/2024 C T. Ongoing attention on follow-up.
--- NOTE | 2024-03-25 10:59 | P.DS ---
Providers Date of admission: 03/18/24 18:34 Expected date of discharge: 03/25/24 Attending physician: Donald Kothari Consults: 03/19/24 14:30 Consult Physician Routine Consulting Provider: Dulce Cook Consult Reason/Comments: CABG Do you want consulting provider notified?: Already Contacted Consult to Anesthesia Routine Consulting Provider: Anesthesia,Services Consult Reason/Comments: Cardiac Surgery Pre-Op 03/19/24 19:20 Consult Physician Routine Consulting Provider: Rocio Torres Consult Reason/Comments: CABG Do you want consulting provider notified?: Already Contacted Consult Physician Routine Consulting Provider: Channing Bennett Consult Reason/Comments: CABG med management Do you want consulting provider notified?: Already Contacted Primary care physician: Channing Bennett [facility] Course: FINAL DIAGNOSIS: Multivessel coronary artery disease, status post four-vessel off-pump coronary artery bypass grafting surgery Unstable angina Diabetes mellitus type 2, noncompliant with taking medication Peripheral neuropathy Remote history of EtOH abuse, quit drinking in 2007 Lifetime non-smoker with a preoperative FEV1 102% of predicted value Acute blood loss anemia, expected given hemodilution PRINCIPAL PROCEDURE: 1. Off-pump coronary artery bypass grafting surgery x 4 vessels with left internal mammary artery to the left anterior descending coronary artery, sequential left radial artery to the first obtuse marginal coronary artery and the second obtuse marginal coronary artery and a saphenous vein graft to the posterior descending coronary artery. 2. Endovascular left radial artery harvest and endovascular harvest of the left greater saphenous vein from the thigh. 3. Exclusion left atrial appendage with a AtriCure 35 mm clip. HISTORY OF PRESENT ILLNESS: The patient presented to the emergency department here at [facility] on March 18, 2024 with complaints of chest fluttering and fatigue. The patient follows with Dr. Channing Bennett for his primary care on an outpatient basis. Due to the patient's presenting symptoms a twelve- lead EKG was completed which showed normal sinus rhythm with a heart rate of 80 bpm and T wave abnormality possible anterioateral ischemia. Serial troponins were drawn and were negative. Due to the patient's presenting symptoms a consult was placed to Dr. Cook from cardiology. Subsequently the patient was taken to the cardiac catheterization lab and underwent a cardiac catheterization which revealed triple-vessel coronary artery disease. A transthoracic 2D echocardiogram was also completed which showed a left ventricular ejection fraction of 45 to 50% and mild mitral valve regurgitation. Due to the patient's heart catheterization results a consult was placed to Dr. Donald Kothari from [facility] for further evaluation and treatment recommendations including myocardial revascularization surgery. Dr. Kothari met with the patient, and the patient's family present at his bedside, treatment options were discussed including myocardial revascularization surgery. Risks and benefits of surgery including the STS risk or were discussed with the patient and knowing and understanding the risks of surgery the patient wished to proceed with the surgical option. A clinical frailty score was calculated which equaled 2. HOSPITAL COURSE: On March 21, 2024 the patient was taken to the preoperative area, and after obtaining consent he was prepared in usual fashion, and was subsequently taken to the operating room where Dr. Donald Kothari performed an off-pump coronary artery bypass grafting surgery x 4 vessels with left internal mammary artery to the left anterior descending coronary artery, sequential left radial artery to the first obtuse marginal coronary artery and the second obtuse marginal coronary artery and a saphenous vein graft to the posterior descending coronary artery. Upon completion of the surgery the patient was transferred to the cardiovascular intensive care unit where he was recovered and monitored hemodynamically. He was subsequently extubated, all lines, tubes, and drips were discontinued when appropriate, and transfer orders were placed to the third floor cardiac stepdown unit for further monitoring and rehabilitation. His oxygen was titrated down, he continued to work with physical and occupational therapy, he was tolerating an oral diet, and his pain was controlled. The patient is being discharged home on postoperative day #4 with [facility]. He received written and verbal instruction regarding his medications, activity restrictions, signs and symptoms requiring physician notification, and follow-up appointments. Plan - Discharge Summary New Discharge Prescriptions: New Metoprolol Tartrate [Lopressor] 50 mg PO BID #60 tab Clopidogrel [Plavix] 75 mg PO DAILY #30 tab Pantoprazole [Protonix] 40 mg PO AC-BRKFST #30 tab Temazepam [Restoril] 30 mg PO HS cap Acetaminophen Tab [Tylenol] 1,000 mg PO Q6HR PRN tab PRN Reason: Fever And/ Or Mild Pain (1-3) Aspirin 325 mg PO DAILY #30 tab Atorvastatin [Lipitor] 40 mg PO DAILY #30 tab amLODIPine [Norvasc] 2.5 mg PO DAILY@1200 #30 tab Discontinued metFORMIN HCL [Glucophage] 500 mg PO BID #30 tab Discharge Medication List Acetaminophen Tab [Tylenol] 1,000 mg PO Q6HR PRN tab 03/25/24 [Rx] Aspirin 325 mg PO DAILY #30 tab 03/25/24 [Rx] Atorvastatin [Lipitor] 40 mg PO DAILY #30 tab 03/25/24 [Rx] Clopidogrel [Plavix] 75 mg PO DAILY #30 tab 03/25/24 [Rx] Metoprolol Tartrate [Lopressor] 50 mg PO BID #60 tab 03/25/24 [Rx] Pantoprazole [Protonix] 40 mg PO AC-BRKFST #30 tab 03/25/24 [Rx] Temazepam [Restoril] 30 mg PO HS cap 03/25/24 [Rx] amLODIPine [Norvasc] 2.5 mg PO DAILY@1200 #30 tab 03/25/24 [Rx] Follow up Appointment(s)/Referral(s): Rocio Torres MD [STAFF PHYSICIAN] - 04/20/24 10:00 am Lacy Ivey NPC [Nurse Practitioner] - 03/30/24 1:00 pm (You will be seen in the surgeon's office behind the hospital in [facility], [address] Office phone number is ) Dulce Cook MD [STAFF PHYSICIAN] - 04/05/24 2:45 pm [facility] [NON-STAFF] - 4 Weeks (You will receive a phone call in approximately 4-6 weeks for evaluation for cardiac rehab) Channing Bennett DO [Primary Care Provider] - 03/30/24 1:40 pm Donald Kothari MD [STAFF PHYSICIAN] - 04/22/24 2:00 pm [facility] Visiting Nurse, [NON-STAFF] - 1-2 Days (You should be seen the day after discharge by registered nurse, then 2-3 times per week until you start cardiac rehab) Ambulatory/Diagnostic Orders: Complete Blood Count w/diff [LAB.AMB] Time Frame: 03/28/24, Facility: [facility], Location: [facility] Comprehensive Metabolic Panel [LAB.AMB] Time Frame: 03/28/24, Facility: [facility], Location: Laboratory [facility] Activity/Diet/Wound Care/Special Instructions: DISCHARGE INSTRUCTIONS: 1. No driving for 4 weeks, or until physician gives their ok. 2. The patient should sleep in their own bed, no medical bed needed. 3. Stairs are not an issue. If the bedroom is upstairs, it is advised that the patient go up at night and down in the morning for the first week. Go slowly, using handrail and take 1 step at a time. 4. VIJAY hose are to be worn for 30 days post surgery or until physician discontinues. 5. Heart hugger is to be worn 100% of the time until physician discontinues.(except when showering) 6. No lifting, pushing, or pulling more than 10 pounds for 12 weeks. The physician will advise of any restriction changes. 7. The patient is expected to continue the prescribed walking program. 8. Continue pain control per as needed orders. 9. Continue with incentive spirometry and splinting/heart hugger until otherwise directed by the physician. 10. Must shower daily using liquid antibacterial soap 11. Routine sternal incision care. No powders, lotions, ointments on incisions. No dressings are necessary on incisions unless they are draining. Dermabond tape is to remain on sternal incision until surgeon follow-up. 12. Please call surgeon/STREET COMMISSIONER for temp greater than 101 F or purulent drainage from incisions. 13. You should weigh yourself daily, record and bring log with you to follow up appointments. 14. All prescriptions given by surgeon for 30 days. Refills need to be filled through pharmacist's aide/primary care physician. 15. A Red armband has been placed on the patient. It should be worn for 30 days post discharge from surgery and will be removed by the cardiac surgeons. If an ER visit is necessary, please make sure the number on the Red armband is called before going to ER. 16. You have been referred to and are expected to begin Cardiac Rehab in approximately 4-6 weeks. 17. Quitting smoking is the most important step you can take to improve your health. For additional information and assistance to quit smoking, please call the [place] tobacco quit line (2-833-CQRD-NOW/ ) or online: https://www.[place].gov/[facility]/annv-wm-lqujsey/chronicdiseases/tobacco/how-to -quit-tobacco HOME HEALTH SERVICES TO PROVIDE: RN SKILLED HOME CARE SERVICES FOR POST-OP SURGICAL PATIENTS WITH THE FOLLOWING: Coronary Artery Bypass Surgery (CABG), Mitral Valve Replacement/Repa ir ( MVR), Aortic Valve Replacement/Repair (AVR) RN TO CONTINUE EDUCATION FROM ``ROAD TO A HEALTH HEART PATIENT EDUCATION MANUAL (GIVEN TO PATIENT IN THE HOSPITAL) MEDICATION RECONCILIATION WITH EDUCATION NEEDED ON FIRST HOME VISIT EMPHASIZE IMPORTANCE OF WEARING BREAST SUPPORT/HEART HUGGER ENCOURAGE USE OF INCENTIVE SPIROMETER 10 X EVERY HOUR WHILE AWAKE ENCOURAGE UTILIZATION OF LOWER EXTREMITY COMPRESSION STOCKINGS/VIJAY HOSE and ELEVATE LEGS ABOVE LEVEL OF HEART WHILE AT REST. ENCOURAGE AMBULATION 3-5x/day INCREASING TOLERATES, WHILE AVOIDING EXTREMES IN TEMPERATURE FREQUENCY: RN TO OPEN THE PATIENT WITHIN 24 HOURS OF DISCHARGE FROM THE HOSPITAL WITH TELEHEALTH INSTALLED AT [facility], RN TO VISIT 2-3 X A WEEK FOR 4 WEEKS ESTABLISHED BY PATIENT NEEDS. LABORATORY: CBC, CMP TO BE DRAWN ON THE THIRD DAY HOME, (RAN STAT) FAX RESULTS TO [phone]. TELEHEALTH PARAMETERS: WEIGHT: NOTIFY MD OF WEIGHT GAIN OF 2 LBS IN 24 HOURS OR 5 LBS IN ONE WEEK HR: NOTIFY MD OF HR <55 BPM OR HR>100 BPM BP: NOTIFY MD IF BP <90/55 OR BP>140/100 O2 SAT: NOTIFY MD IF PO2<93% ON ROOM AIR SEND TELEHEALTH REPORT TO A P MECHANIC AND CARDIOVASCULAR SURGEON THE FIRST WEEK OF CARE AND THEN BI-WEEKLY. PLEASE ADDITIONALLY COMMUNICATE ANY ABNORMALS AND NEW FINDINGS TO THE SURGEONS OFFICE. Discharge Disposition: HOME WITH HOME HEALTH SERVICES
[2024-03-25 11:32] LABS: Glucose,Whole Blood 125 mg/dL (70-110)
--- NOTE | 2024-03-25 12:02 | P.PN ---
Subjective Progress Note Date: 03/25/24 Principal diagnosis: Coronary artery disease. The patient is seen today March 21, 2024 in follow-up in the intensive care unit. He is status post off-pump coronary artery bypass grafting x 4 with a LAWRENCE to the LAD, left radial artery sequential to the OM1 and OM 2, SVG to the PDA. He is intubated on the mechanical ventilator and assist-control mode at a rate of 14, tidal volume 500, FiO2 50% and a PEEP of 5. Arterial blood gases revealed a PaO2 of 366, pCO2 42 and a pH of 7.38 on 100% FiO2. He has a right IJ Start-Jim catheter in place. Cardiac output 5.9. Cardiac index 2.8. PA pressure 23/16, CVP of 9. Chest x-ray reveals atelectatic changes in the bases. Mediastinal and left chest tubes are secured in place. He is currently on Precedex at 0.4 mcg/kg/h. Propofol at 40 mcg/kg/min. Cardizem drip at 5 mg/h. Nitroglycerin drip at 5 mcg/min. Normal saline 0.9% at 50 mL/h. Heparin for DVT prophylaxis. White count 11.3. Hemoglobin 12.2. Platelets 207. Sodium 136. Potassium 3.9. Bicarb 22. BUN 14. Creatinine 0.68. Glucose 106. The patient is seen today 03/22/2024 in follow-up in the intensive care unit. Postoperative day #1. He is doing very well. He is sitting up in a chair at the bedside. Awake and alert in no acute distress. He is maintaining good O2 saturations in the 90s on room air. He is working well with the incentive spirometer. He is on normal saline at 40 mL/h. He still on insulin drip at 2.5 units/h. Cardiac output 5.2. Cardiac index 2.5. CVP 4. Mediastinal and left chest tubes remain in place. Chest x-ray reveals residual mild pulmonary vascular congestion. White count 12.9. Hemoglobin 11.5. Platelets 247. Sodium 132. Potassium 4.1. Bicarb 23. BUN 13. Creatinine 0.63. Glucose 115. He is continued on bronchodilators. Heparin for DVT prophylaxis. The patient is seen today March 23, 2024 in follow-up in the intensive care unit. Postoperative day #2. He is currently sitting up in a chair at the bedside. Awake and alert in no acute distress. Maintaining good O2 saturations in the 90s on room air. He has normal saline at KVO. He is continued on bronchodilators. Heparin for DVT prophylaxis. White count 9.8. Hemoglobin 10.1. Platelets 184. Sodium 131. Potassium 4.3. Bicarb 23. BUN 13. Creatinine 0.78. Glucose 105. Chest x-ray reveals similar pulmonary vascular congestion. He continues to work well with his incentive spirometer. Chest tubes have been removed. The patient is seen today March 24, 2024 in follow-up in the intensive care unit. Postoperative day #3. He is awake and alert in no acute distress. Sitting up in a chair at the bedside. Denies any worsening shortness of breath, cough or congestion. He is maintaining good O2 saturations in the 90s on room air. No IV fluids. Chest x-ray continues to show improvement. He is working well with the incentive spirometer. Count 9.0. Hemoglobin 10.2. Platelets 241. Sodium 135. Potassium 4.1. Bicarb 27. BUN 18. Creatinine 0.88. Glucose 115. He is continued on bronchodilators. Heparin for DVT prophylaxis. Progress note dated March 25, 2024. The patient is seen today in room 366. He is postop day #4. He is in no acute distress. He is not requiring any supplemental oxygen. He is not on any IV fluids. He continues working on his incentive spirometer. The patient is hoping to be discharged home sometime today. Current labs include a white count 8.4, hemoglobin 9.3, hematocrit 27.7, and platelet count 228,000. Sodium 134, potassium 4, chlorides 104, CO2 26, BUN 22, creatinine 0.89. Glucose 125. Calcium 8.5. Chest x-ray shows mild cardiomegaly primarily. Objective - Vital Signs Vital signs: Vital Signs Temp 98 F 03/25/24 08:00 Pulse 78 03/25/24 08:28 Resp 18 03/25/24 08:00 BP 135/79 03/25/24 08:00 Pulse Ox 97 03/25/24 08:18 FiO2 40 03/21/24 15:21 Intake & Output 03/24/24 03/25/24 03/25/24 18:59 06:59 18:59 Intake Total 600 Output Total 642 300 Balance -42 -300 Weight 91.2 kg Intake: Oral 600 Output: Urine 400 300 Post Void Residual 242 Other: Voiding Method Urinal ABP, PAP, CO, CI - Last Documented Arterial Blood Pressure 123/41 Pulmonary Artery Pressure 9/1 Cardiac Output 5.2 Cardiac Index 2.5 - Exam No acute distress, oriented 3. HEENT examination is grossly unremarkable. Mucous membranes are moist. No oral lesions. Neck supple. Full range of motion. No adenopathy thyromegaly or neck vein distention. Cardiovascular examination reveals regular rhythm rate. S1-S2 normal. No S3 or S4. No discernible murmur noted. Lungs reveal clear breath sounds. Breath sounds are equal bilaterally. No adventitious lung sounds including wheezes rhonchi or crackles. Abdomen soft bowel sounds are heard. No masses or tenderness. Extremities are intact. No cyanosis clubbing or edema. Skin is without rash or lesion. Neurologic examination is brief but nonfocal. - Labs CBC & Chem 7: 03/25/24 02:55 03/25/24 02:55 Labs: Abnormal Lab Results - Last 24 Hours (Table) 03/24/24 03/25/24 03/25/24 Range/Units 20:46 02:55 02:55 RBC 2.99 L (4.30-5.90) m/uL Hgb 9.3 L (13.0-17.5) gm/dL Hct 27.7 L (39.0-53.0) % Sodium 134 L (137-145) mmol/L BUN 22 H (9-20) mg/dL Glucose 101 H (74-99) mg/dL POC Glucose (mg/dL) 160 H (70-110) mg/dL 03/25/24 03/25/24 Range/Units 06:09 11:29 RBC (4.30-5.90) m/uL Hgb (13.0-17.5) gm/dL Hct (39.0-53.0) % Sodium (137-145) mmol/L BUN (9-20) mg/dL Glucose (74-99) mg/dL POC Glucose (mg/dL) 112 H 125 H (70-110) mg/dL Assessment and Plan Assessment: Triple-vessel coronary artery disease S/P coronary artery bypass grafting x 4 utilizing a LAWRENCE to the LAD, left radial arterial graft to the OM1 and OM 2, SVG to the PDA. Postoperative day #4. Mechanical ventilation management, expected outcome of surgery. Diabetes mellitus, type II. Peripheral neuropathy. Remote history of alcoholism, quit in 2007. Non-smoker, FEV1 value within normal limits. Plan: Plan dated March 25, 2024. The patient is doing very well. He is not on any supplemental oxygen or IV fluids. Labs, x-rays, and medications are reviewed. The patient is likely to be discharged sometime later today. He will follow-up with us in the office. No additional recommendations at this time. Prognosis is thought to be very good. Time with Patient: Less than 30
--- NOTE | 2024-03-25 12:22 | P.PN ---
Subjective Progress Note Date: 03/24/24 03/22/2024 this is a 63-year-old gentleman status post CABG x 4V, postop day #1. Tolerated procedure well ;telemetry normal sinus rhythm. Maintaining O2 sats in the 90s on room air. Chest x-ray reports residual mild pulmonary vascular congestion.Cardiac output 5.2, cardiac index 2.5, currently on insulin and Cardizem drips. Glucose 115. afebrile, WBC 12.9. Hemoglobin 11.5, platelets 247. Sodium 132, potassium 4.1, magnesium 1.6, bicarb 23, BUN 13, creatinine 0.63. 03/23/2024 CABG postop day #2, telemetry sinus rhythm. Maintaining O2 sats in the 90s on room air. Chest x-ray reporting similar pulmonary vascular congestion. Afebrile, normal WBC, hemoglobin 10.1, platelets 184, electrolytes and renal function within normal limits. Patient currently in the process of being declined and getting chest tubes out. Blood sugars controlled. 03/24/2024 hemoglobin A1c 5.8. Significant clinical improvement, sitting up in chair, I-S up to 1500, maintaining O2 sats in the 90s on room air. Chest x-ray reporting improving but residual pulmonary vascular congestion, nodular density at the periphery of the left base probably super in position shadow-repeat chest x-ray in a.m. electrolytes and renal function within normal limits. Afebrile, WBC 9, hemoglobin 10.2, platelets 241. Blood sugars controlled. Objective - Vital Signs Vital signs: Vital Signs Temp 98.4 F 03/24/24 16:00 Pulse 82 03/24/24 16:06 Resp 16 03/24/24 16:00 BP 108/76 03/24/24 16:00 Pulse Ox 96 03/24/24 16:00 FiO2 40 03/21/24 15:21 Intake & Output 03/23/24 03/24/24 03/24/24 18:59 06:59 18:59 Intake Total 1462 600 Output Total 9498 977 642 Balance -303 -975 -42 Weight 90.7 kg Intake: IV 212 Magnesium Sulfate-D5w Pmx 100 1 gm In Dextrose/Water 1 100ml.bag @ 100 mls/hr IVPB ONCE ONE Rx#: [id number] Pressure Bag 12 Sodium Chloride 0.9% 1, 100 000 ml @ 20 mls/hr IV . Q24H [facility] Rx#:[id number] Oral 1250 600 Output: Urine 1765 975 400 Post Void Residual 242 Other: Voiding Method Indwelling Catheter Urinal # Bowel Movements 1 ABP, PAP, CO, CI - Last Documented Arterial Blood Pressure 123/41 Pulmonary Artery Pressure 9/1 Cardiac Output 5.2 Cardiac Index 2.5 - Exam PHYSICAL EXAM: VITAL SIGNS: [As above] GENERAL: Alert and oriented x 3, sitting up in chair, no acute distress wearing his bear hugger HEENT: Normocephalic ,conjunctivae normal. eyes normal. MMM. NECK: Supple, no JVD CARDIOVASCULAR: S1, S2 regular. No murmur. RESPIRATION: Unlabored, equal air entry ,breath sounds diminished in the bases. ABDOMEN: Soft, nondistended, nontender . No guarding. Positive bowel sounds LEGS: Bilateral lower extremities Ignacio wrapped, positive DP pulses. NERVOUS SYSTEM: Cranial N 2-12 grossly normal. Strength and sensation grossly intact. Skin: Warm and dry, no rash - Labs CBC & Chem 7: 03/25/24 02:55 03/25/24 02:55 Labs: Abnormal Lab Results - Last 24 Hours (Table) 03/23/24 03/24/24 03/24/24 Range/Units 20:13 06:44 07:00 RBC 3.35 L (4.30-5.90) m/uL Hgb 10.2 L (13.0-17.5) gm/dL Hct 31.0 L (39.0-53.0) % Sodium (137-145) mmol/L Glucose (74-99) mg/dL POC Glucose (mg/dL) 135 H 121 H (70-110) mg/dL 03/24/24 03/24/24 Range/Units 07:00 11:19 RBC (4.30-5.90) m/uL Hgb (13.0-17.5) gm/dL Hct (39.0-53.0) % Sodium 135 L (137-145) mmol/L Glucose 115 H (74-99) mg/dL POC Glucose (mg/dL) 222 H (70-110) mg/dL Assessment and Plan Assessment: Multi vessel CAD, status post CABG x 4 vessels Acute blood loss anemia, expected outcome Diabetes mellitus type 2, prior A1c of 6/24 7.7, currently A1c 5.8. Peripheral neuropathy History of alcoholism, quit in 2007 Occasional marijuana use Plan: Continue on current medication regimen, monitoring and symptomatic treatment. WI planning in progress. Continue aggressive pulmonary toileting with incentive spirometer reinforced. increase activity as tolerated. At [place] ,maintain log of accuchecks and take to F/U visit with PCP. The impression and plan of care has been dictated as directed. : I performed a history and examination of this patient, discussed the same with the dictator. I agree with the dictator's note ,documented as a scribe. Any additional findings or plans will be noted.
--- NOTE | 2024-03-25 13:47 | P.PN ---
Subjective Progress Note Date: 03/25/24 This is a 63-year-old male who presented to hospital with chest pain and underwent cardiac catheter found three-vessel coronary artery disease and subsequently underwent CABG with LAWRENCE to LAD, venous graft to OM1 and OM 2 and right coronary artery. Patient is transferred out of the intensive care unit s een today on the cardiac stepdown unit. Patient remains in a sinus rhythm. Blood pressure 135/79, heart rate is in the 70s, pulse ox 97% on room air. Repeat blood work reveals BUN 22 creatinine 0.89, potassium 4, hemoglobin 9.3. Patient states that he is expecting to go home later this afternoon. Physical examination: Gen: This is a 63-year-old male in no acute distress VS: reviewed HEENT: Head is atraumatic, normocephalic. Pupils equal, round. Sclerae is anicteric. NECK: Supple. No JVD. LUNGS: Diminished breath sounds bilaterally. No intercostal retractions. HEART: Regular S1 and S2, no gallop, no murmur. ABDOMEN: Soft No tenderness. EXTREMITIES: No pedal edema. No calf tenderness. NEUROLOGICAL: Patient is awake, alert and oriented x3. Assessment: Coronary artery disease status post CABG postop day #4 Plan: Continue current cardiac medications: Amlodipine 2.5 mg daily, aspirin, atorvastatin, Plavix, Lopressor 50 mg twice daily Patient is cleared for discharge from cardiology and patient may follow-up with Dr. Cook in the office in 1 to 2 weeks. Nurse practitioner note has been reviewed, I agree with documented findings and plan of care. Patient was seen and examined. Objective - Vital Signs Vital signs: Vital Signs Temp 97.7 F 03/25/24 04:00 Pulse 78 03/25/24 08:28 Resp 14 03/25/24 04:00 BP 119/65 03/25/24 04:00 Pulse Ox 97 03/25/24 08:18 FiO2 40 03/21/24 15:21 Intake & Output 03/24/24 03/25/24 03/25/24 18:59 06:59 18:59 Intake Total 600 Output Total 642 300 Balance -42 -300 Weight 91.2 kg Intake: Oral 600 Output: Urine 400 300 Post Void Residual 242 Other: Voiding Method Urinal ABP, PAP, CO, CI - Last Documented Arterial Blood Pressure 123/41 Pulmonary Artery Pressure 9 Cardiac Output 5.2 Cardiac Index 2.5 - Labs CBC & Chem 7: 03/25/24 02:55 03/25/24 02:55 Labs: Abnormal Lab Results - Last 24 Hours (Table) 03/24/24 03/24/24 03/25/24 Range/Units 11:19 20:46 02:55 RBC 2.99 L (4.30-5.90) m/uL Hgb 9.3 L (13.0-17.5) gm/dL Hct 27.7 L (39.0-53.0) % Sodium (137-145) mmol/L BUN (9-20) mg/dL Glucose (74-99) mg/dL POC Glucose (mg/dL) 222 H 160 H (70-110) mg/dL 03/25/24 03/25/24 Range/Units 02:55 06:09 RBC (4.30-5.90) m/uL Hgb (13.0-17.5) gm/dL Hct (39.0-53.0) % Sodium 134 L (137-145) mmol/L BUN 22 H (9-20) mg/dL Glucose 101 H (74-99) mg/dL POC Glucose (mg/dL) 112 H (70-110) mg/dL
--- NOTE | 2024-03-25 14:01 | P.PN ---
Subjective Progress Note Date: 03/25/24 03/22/2024 this is a 63-year-old gentleman status post CABG x 4V, postop day #1. Tolerated procedure well ;telemetry normal sinus rhythm. Maintaining O2 sats in the 90s on room air. Chest x-ray reports residual mild pulmonary vascular congestion.Cardiac output 5.2, cardiac index 2.5, currently on insulin and Cardizem drips. Glucose 115. afebrile, WBC 12.9. Hemoglobin 11.5, platelets 247. Sodium 132, potassium 4.1, magnesium 1.6, bicarb 23, BUN 13, creatinine 0.63. 03/23/2024 CABG postop day #2, telemetry sinus rhythm. Maintaining O2 sats in the 90s on room air. Chest x-ray reporting similar pulmonary vascular congestion. Afebrile, normal WBC, hemoglobin 10.1, platelets 184, electrolytes and renal function within normal limits. Patient currently in the process of being declined and getting chest tubes out. Blood sugars controlled. 03/24/2024 hemoglobin A1c 5.8. Significant clinical improvement, sitting up in chair, I-S up to 1500, maintaining O2 sats in the 90s on room air. Chest x-ray reporting improving but residual pulmonary vascular congestion, nodular density at the periphery of the left base probably super in position shadow-repeat chest x-ray in a.m. electrolytes and renal function within normal limits. Afebrile, WBC 9, hemoglobin 10.2, platelets 241. Blood sugars controlled. 03/25/2024 transferred out of the ICU currently on the cardiac stepdown. Maintaining O2 sats in the 90s on room air. Maintained on Norvasc, aspirin, Plavix, atorvastatin, Lopressor .telemetry sinus rhythm. Vital signs stable. Blood sugars controlled. Decreased surgical discomfort., Normal WBC, hemoglobin 9.3, platelets 228, sodium 134, potassium 4, bicarb 26, BUN 22, creatinine 0.89. Eager for discharge home. Afebrile Objective - Vital Signs Vital signs: Vital Signs Temp 98 F 03/25/24 08:00 Pulse 78 03/25/24 08:28 Resp 18 03/25/24 08:00 BP 135/79 03/25/24 08:00 Pulse Ox 97 03/25/24 08:18 FiO2 40 08/25/24 15:21 Intake & Output 03/24/24 03/25/24 03/25/24 18:59 06:59 18:59 Intake Total 600 Output Total 642 300 Balance -42 -300 Weight 91.2 kg Intake: Oral 600 Output: Urine 400 300 Post Void Residual 242 Other: Voiding Method Urinal ABP, PAP, CO, CI - Last Documented Arterial Blood Pressure 123/41 Pulmonary Artery Pressure 9/1 Cardiac Output 5.2 Cardiac Index 2.5 - Exam PHYSICAL EXAM: VITAL SIGNS: [As above] GENERAL: Alert and oriented x 3, sitting up in chair, no acute distress wearing his bear hugger HEENT: Normocephalic ,conjunctivae normal. Sclera anicteric. MMM. NECK: Supple, no JVD CARDIOVASCULAR: S1, S2 regular. No murmur. RESPIRATION: Unlabored, equal air entry , bilateral bases diminished. ABDOMEN: Soft, nondistended, nontender . No guarding. Positive bowel sounds LEGS: Bilateral lower extremities Ignacio wrapped, positive DP pulses. NERVOUS SYSTEM: Cranial N 2-12 grossly normal. Strength and sensation grossly intact. Skin: Warm and dry, no rash - Labs CBC & Chem 7: 03/25/24 02:55 03/25/24 02:55 Labs: Abnormal Lab Results - Last 24 Hours (Table) 03/24/24 03/25/24 03/25/24 Range/Units 20:46 02:55 02:55 RBC 2.99 L (4.30-5.90) m/uL Hgb 9.3 L (13.0-17.5) gm/dL Hct 27.7 L (39.0-53.0) % Sodium 134 L (137-145) mmol/L BUN 22 H (9-20) mg/dL Glucose 101 H (74-99) mg/dL POC Glucose (mg/dL) 160 H (70-110) mg/dL 03/25/24 03/25/24 Range/Units 06:09 11:29 RBC (4.30-5.90) m/uL Hgb (13.0-17.5) gm/dL Hct (39.0-53.0) % Sodium (137-145) mmol/L BUN (9-20) mg/dL Glucose (74-99) mg/dL POC Glucose (mg/dL) 112 H 125 H (70-110) mg/dL Assessment and Plan Assessment: Multi vessel CAD, status post CABG x 4 vessels Acute blood loss anemia, expected outcome Diabetes mellitus type 2, prior A1c of 01/18 7.7, currently A1c 5.8. Peripheral neuropathy History of alcoholism, quit in 2007 Occasional marijuana use Plan: Continue on current medication regimen, monitoring and symptomatic treatment. [place] planning in progress. Continue aggressive pulmonary toileting with incentive spirometer reinforced. increase activity as tolerated. At dc ,maintain log of accuchecks and take to F/U visit with PCP. Follow-up with PCP, Dr. Bennett, in 1 week. The impression and plan of care has been dictated as directed. : I performed a history and examination of this patient, discussed the same with the dictator. I agree with the dictator's note ,documented as a scribe. Any additional findings or plans will be noted.
--- NOTE | 2024-04-07 06:59 | CT ---
EXAMINATION TYPE: CT chest wo con DATE OF EXAM: 03/19/2024 COMPARISON: 03/18/2024 HISTORY: 63-year-old male with chest pain TECHNIQUE: Contiguous axial scanning of the chest without IV contrast. Coronal/sagittal reconstructio ns performed. CT DLP: 422.3 mGycm. Automatic exposure control utilized for a dose reduction. FINDINGS: The heart is normal size. Three-vessel coronary artery calcifications are present. Mild aortic valve calcifications. Aorta normal caliber with aberrant direct takeoff of a nondominant left vertebral artery directly fro m the aortic arch. Scattered nonenlarged mediastinal lymph nodes. No thoracic lymphadenopathy by CT size criteria. There is no consolidation or pleural effusion. Calcified granuloma posterior right upper lobe. Tiny hiatal hernia. Benign 2.7 cm cortical cyst upper pole right kidney. Bones: Moderate degenerative disc disease throughout the mid and lower thoracic spine. IMPRESSION: 1. No acute cardiopulmonary process. 2. Three-vessel coronary artery calcifications. 3. Tiny hiatal hernia.
--- NOTE | 2024-04-13 10:25 | CA ---
Transthoracic Echo Report Name: Gilmar Vela Age: 63 Gender: O : 1960 Exam Date: 03/19/2024 08:30 Exam Location: [facility] Ht (in): 72 Wt (lb): 194 Ordering Physician: Attending/Referring Phys: Puddler Helper Shanon Headley RDCS Procedure CPT: Indications: Left ventricular failure Cardiac Hx: Technical Quality: Fair Contrast 1: Total Dose (mL): Contrast 2: Total Dose (mL): MEASUREMENTS (Male / Female) Normal Values 2D ECHO LV Diastolic Diameter PLAX 4.8 cm 4.2 - 5.9 / 3.9 - 5.3 cm LV Systolic Diameter PLAX 3.5 cm IVS Diastolic Thickness 1.5 cm 0.6 - 1.0 / 0.6 - 0.9 cm LVPW Diastolic Thickness 1.2 cm 0.6 - 1.0 / 0.6 - 0.9 cm LV Relative Wall Thickness 0.6 RV Internal Dim ED PLAX 2.8 cm LVOT Diameter 2.4 cm LA Systolic Diameter LX 3.7 cm 3.0 - 4.0 / 2.7 - 3.8 cm LV Diastolic Volume MOD BP 88.7 cm??? 67 - 155 / 56 - 104 cm??? LV Systolic Volume MOD BP 46.1 cm??? 22 - 58 / 19 - 49 cm??? LV Ejection Fraction MOD BP 48.0 % >= 55 % LV Cardiac Index MOD BP 1805.0 cm???/min???m??? LV Diastolic Volume MOD 4C 101.9 cm??? LV Systolic Volume MOD 4C 49.3 cm??? LV Ejection Fraction MOD 4C 51.6 % LV Cardiac Index MOD 4C 2226.5 cm???/min???m??? LV Diastolic Length 4C 8.6 cm LV Systolic Length 4C 7.3 cm LV Diastolic Volume MOD 2C 75.3 cm??? LV Systolic Volume MOD 2C 41.9 cm??? LV Ejection Fraction MOD 2C 44.4 % LV Cardiac Index MOD 2C 1415.8 cm???/min???m??? LV Diastolic Length 2C 8.3 cm LV Systolic Length 2C 7.1 cm M-MODE Aortic Root Diameter MM 3.5 cm LA Systolic Diameter MM 3.5 cm LA Ao Ratio MM 1.0 AV Cusp Separation MM 1.6 cm DOPPLER AV Peak Velocity 149.7 cm/s AV Peak Gradient 9.0 mmHg AV Mean Velocity 89.4 cm/s AV Mean Gradient 3.9 mmHg AV Velocity Time Integral 33.4 cm LVOT Peak Velocity 96.2 cm/s LVOT Peak Gradient 3.7 mmHg LVOT Velocity Time Integral 22.3 cm LVOT Stroke Volume 97.0 cm??? LVOT Stroke Volume Index 46.1 ml/m??? LVOT Cardiac Index 4105.5 cm???/min???m??? AV Area Cont Eq vti 2.9 cm??? AV Area Cont Eq pk 2.8 cm??? Mitral E Point Velocity 63.1 cm/s Mitral A Point Velocity 77.7 cm/s Mitral E to A Ratio 0.8 MV Deceleration Time 260.8 ms MV E' Velocity 7.0 cm/s Mitral E to MV E' Ratio 9.1 TR Peak Velocity 234.7 cm/s TR Peak Gradient 22.0 mmHg FINDINGS Left Ventricle Left ventricular ejection fraction is estimated at 45-50 %. Moderately increased septal wall thickness. Mildly decreased left ventricular ejection fraction. Left ventricular cavity size normal. Hypokinetic inferior wall. Right Ventricle Normal right ventricular size and function. Right ventricular systolic pressure within normal limits. Right Atrium Normal right atrial size. Left Atrium Normal left atrial size. Mitral Valve Structurally normal mitral valve. Moderate mitral annular calcification. Mild mitral regurgitation. Aortic Valve Trileaflet aortic valve. No aortic valve stenosis or regurgitation. Moderate aortic sclerosis Tricuspid Valve Structurally normal tricuspid valve. Trace tricuspid regurgitation. No tricuspid stenosis. Pulmonic Valve Structurally normal pulmonic valve. Trace pulmonic regurgitation. No pulmonic stenosis. Pericardium No pericardial or pleural effusion. Aorta Normal size aortic root and proximal ascending aorta. CONCLUSIONS 1. Mildly impaired left ventricular systolic function with segmental wall motion abnormality 2. Mild mitral regurgitation Previewed by: Dr. Dulce Cook MD (Electronically Signed) Final Date: 19 March 2024 11:35
--- NOTE | 2024-04-13 11:32 | XR ---
Patient: Gilmar Vela Ordering Physician: Unknown, Unknown ID: [id number] Phone, Pager: Phone: N/A Pager: N/A : 1960 Age/Gender: 63Y, M Primary Location: N/A Procedure: XR chest 2V Study Date: 03/18/2024 4:07:44 PM EXAMINATION TYPE: XR chest 2V DATE OF EXAM: 03/18/2024 COMPARISON: NONE HISTORY: Shortness of breath TECHNIQUE: Frontal and lateral views of the chest are obtained. FINDINGS: Scattered senescent parenchymal changes noted. Hyperinflation compatible with COPD. No evidence for infiltrate. No evidence for atelectasis. Heart size is stable. Mediastinal structures are stable and grossly unremarkable. No evidence for hilar prominence. Degenerative changes dorsal spine. IMPRESSION: 1. No evidence for acute pulmonary disease.
--- NOTE | 2024-04-14 16:11 | US ---
Patient: Gilmar Vela Ordering Physician: Unknown, Unknown ID: [id number] Phone, Pager: Phone: N/A Pager: N/A : 1960 Age/Gender: 63Y, O Primary Location: N/A Procedure: US Carotid Duplex Bilateral Study Date: 03/19/2024 4:09:00 PM EXAMINATION TYPE: US carotid duplex BILAT DATE OF EXAM: 03/19/2024 COMPARISON: NONE CLINICAL INDICATION: 63-year-old male carotid, open heart Friday, dizziness TECHNIQUE: Carotid duplex ultrasound examination. Indirect Doppler criteria was utilized. FINDINGS: EXAM MEASUREMENTS: RIGHT: Peak Systolic Velocity (PSV) cm/sec ----- Right CCA: 90.0 ----- Right ICA: 85.6 ----- Right ECA: 135.8 ICA/CCA ratio: 1.0 RIGHT: End Diastole cm/sec ----- Right CCA: 17.3 ----- Right ICA: 28.9 ----- Right ECA: 11.6 LEFT: Peak Systolic Velocity (PSV) cm/sec ----- Left CCA: 102.2 ----- Left ICA: 135.6 ----- Left ECA: 127.7 ICA/CCA ratio: 1.3 LEFT: End Diastole cm/sec ----- Left CCA: 21.5 ----- Left ICA: 49.0 ----- Left ECA: 0 VERTEBRALS (direction of flow): Right Vertebral: Antegrade Left Vertebral: Antegrade Mild atherosclerotic changes of the bifurcations. IMPRESSION: Some velocity elevation at the left ICA may reflect turbulent flow versus a moderate (50-69%) ICA st enosis. No hemodynamically significant internal carotid artery stenosis on either side. Criteria for Assigning % of Stenosis / Diameter reduction (Estimation based on the indirect measurements of the internal carotid artery velocities (ICA PSV). 1. Normal (no stenosis)=ICA PSV < 125 cm/s: ratio < 2.0: ICA EDV<40 cm/s. 2. Less than 50% stenosis=ICA PSV < 125 cm/s: ratio < 2.0: ICA EDV<40 cm/s. 3. 50 to 69% stenosis=ICA PSV of 125 to 230 cm/s: ration 2.0 ? 4.0: ICA EDV 40-100 cm/s. 4. Greater than 70% stenosis to near occlusion= ICA PSV > 230 cm/s: ratio > 4.0: ICA EDV > 100 cm/s. 5. Near occlusion= ICA PSV velocities may be low or undetectable: variable ratio and ICA EDV. 6. Total occlusion=unable to detect flow.
--- NOTE | 2024-04-14 16:12 | US ---
Site ID [facility] Patient Gilmar Vela ID [id number] 1960 Age/Gender: 63Y, O Order # N/A Procedure US vein mapping BILAT Date 03/19/2024 3:44:00 PM EXAMINATION TYPE: US vein mapping BILAT DATE OF EXAM: 03/19/2024 5:16 PM COMPARISON: NONE CLINICAL INDICATION: 63 year old with vein mapping for open heart. SIDE PERFORMED: Bilateral TECHNIQUE: Lower extremity saphenous vein is examined and measured utilizing real time linear array sonography. DUPLEX FINDINGS: Greater Saphenous: Color flow seen Measurements in mm: rt gsv groin 5.5 x 3.5 rt gsv ht 3.8 x 2.6 rt gsv mt 3.9 x 2.5 rt gsv ak 2.8 x 2.4 rt gv kn 1.7 x 1.8 rt gsv bk 2.7 x 2.6 rt gsv mc 2.9 x 1.4 rt gsv aa 2.7 x 1.6 lt gsv groin 6.2 x 5.1 lt gsv ht 2.4 x 2.0 lt gsv mt 3.2 x 2.0 lt gsv ak 2.7 x 2.0 lt gsv kn 4.5 x 3.6 lt gsv bk 3.0 x 2.3 lt gsv mc 2.3 x 1.9 lt gsv aa 3.3 x 1.7 IMPRESSION: 1. Bilateral GSV measurements listed above. 2. Performing surgeon to determine viability as conduit.
--- NOTE | 2024-04-14 16:13 | US ---
Site ID [facility] Patient Gilmar Vela ID [id number] 1960 Age/Gender: 63Y, M Order # N/A Procedure US Lt Radial Artery Date 03/19/2024 4:01:00 PM EXAMINATION TYPE: Pre-Operative Non-Invasive Evaluation of the hand for Potential Radial Artery Jayjay Mays only DATE OF EXAM: 03/19/2024 5:21 PM CLINICAL INDICATION: Male, 63 year old with left radial artery harvest potential, open heart. SIDE PERFORMED: Left TECHNIQUE: Radial artery is measured utilizing real time linear array sonography. Dominant hand: N/A Duplex Findings: Radial Artery: Color flow seen Measurements in mm, transverse view: Left Radial Distal 2.5 x 2.7cm Mid 2.5 x 2.8cm Proximal 3.4 x 3.1cm IMPRESSION: 1. Left Radial artery measurements listed above. 2. Performing surgeon to determine viability as conduit.
--- NOTE | 2024-04-14 16:13 | US ---
Patient: Gilmar Vela Ordering Physician: Unknown, Unknown ID: [id number] Phone, Pager: Phone: N/A Pager: N/A : 1960 Age/Gender: 63Y, O Primary Location: N/A Procedure: US arterial LE single level Study Date: 03/19/2024 6:29:00 PM EXAMINATION TYPE: US arterial LE single level DATE OF EXAM: 03/20/2024 4:00 PM CLINICAL INDICATION: Open heart, smoker Doppler Waveforms: Right: Multiphasic Left: Multiphasic Right Brachial Pressure: WOOD HEEL FLAP RUBBER Left Brachial Pressure: 137 Ankle-Brachial Indices: Right: 1.3 Left: 1.2 (Vessel hardening > 1.4; Normal 0.9 - 1.4, Moderate 0.7 - 0.9, Severe 0.5-0.7) IMPRESSION: Normal ankle-brachial indices bilaterally.
--- NOTE | 2024-04-28 14:07 | CC ---
CARDIAC CATHETERIZATION REPORT Mr. Schafer is a 63-year-old male with no documented history of CAD who presented with symptoms of palpitations. He has been having progressive leg weakness. On presentation, his cardiac enzymes were unremarkable, but his EKG showed T-wave inversion in the inferolateral leads and in view of that, recommendation was made regarding cardiac catheterization. The procedure as well as risks and complications were discussed with the patient, who is in full understanding and agreement. PROCEDURE DESCRIPTION: The patient was brought to Catheterization Lab in a fasting, semi-sedated state after receiving fentanyl and Benadryl and achieving moderate conscious sedated state. Using Xylocaine anesthesia and Seldinger technique, a 6-[place] sheath was introduced in the right radial artery. Selective right and left coronary angiography performed using 5- [place] 3.5 bend right and left Pantera catheter. Multiple views of the coronary artery including delonte-axial views were obtained. Following that, a 6-[place] pigtail catheter was introduced in the left ventricle, and a 30-degree XIONG view of the left ventricle was obtained. Following that, catheter and sheath were removed. Hemostasis was obtained with deployment of a TR band. There was no immediate complication. The patient was returned to his room in stable condition. Of note, the patient received a total of 4500 units of intravenous heparin. He also received intra-arterial verapamil. FINDINGS: Fluoroscopy: There was calcification involving the LAD and left circumflex. Left main: This is a large-sized vessel bifurcating into left circumflex, left anterior descending artery. The left main coronary artery has no significant obstructive disease. Left anterior descending artery: This is a large-sized vessel reaching to the apex. The proximal LAD has 20% plaque. It gives rise to 2 diagonal branches. The second diagonal branch is small in caliber and has an area of stenosis of 90% after the takeoff of the second diagonal branch. There is an eccentric 85% to 90% stenosis. The rest of the vessel has no high-grade stenosis. Left circumflex: This is a large nondominant vessel giving rise to 2 large obtuse marginal branches. The first obtuse marginal branch has a 90% stenosis at the ostium and the second obtuse marginal branch has a tubular long area of stenosis of 90%. The rest of the vessel has no high-grade stenosis. Right coronary artery: This is a large dominant vessel bifurcating distally to PDA and posterolateral segment branches. The mid right coronary artery has a 95% hazy area. There is another area of plaque of about 60% in the distal RCA. The rest of the vessel has no high-grade stenosis. LEFT VENTRICULOGRAM: Left ventriculogram was not performed. HEMODYNAMICS: There was no gradient across the aortic valve. The left ventricular end-diastolic pressure is 12 to 16 mmHg. CONCLUSION: 1. Severe triple-vessel coronary artery disease. 2. Right dominance. RECOMMENDATIONS: In view of findings and anatomy, I recommend proceeding with evaluation for possible coronary artery bypass grafting and depending on the decision, the other option is to proceed with multivessel stenting, although it carries a high risk of restenosis. Those findings were discussed with the patient and his family, and they are in full understanding and agreement. Duration of sedation is 15 minutes. MMODL / IJN: [id number] /
== END 2024-03-25 14:27 | disposition home or self-care (01) | DRG 234 ==
LOC: UNDOADMIN 18:34 → 3SCARD 18:34 → 2SICU 03-21 08:40 → 3SCARD 03-21 08:40 → 2SICU 03-21 10:01 → 3SCARD 03-24 17:07 → 2SICU 03-24 17:07 → UNDODISIN 03-25 14:27
PROVIDERS: ADMIT Thoracic Surgery (Cardiothoracic Vascular Surgery); ATTEND Thoracic Surgery (Cardiothoracic Vascular Surgery)
PROC: 4A023N7 Measurement of Cardiac Sampling and Pressure, Left Heart, Percutaneous Approach (ICD-10-PCS; 2024-03-18)
PROC: B2111ZZ Fluoroscopy of Multiple Coronary Arteries using Low Osmolar Contrast (ICD-10-PCS; 2024-03-18)
PROC: 03BC3ZZ Excision of Left Radial Artery, Percutaneous Approach (ICD-10-PCS; 2024-03-21)
PROC: 06BQ3ZZ Excision of Left Saphenous Vein, Percutaneous Approach (ICD-10-PCS; 2024-03-21)
PROC: 02L70CK Occlusion of Left Atrial Appendage with Extraluminal Device, Open Approach (ICD-10-PCS; 2024-03-21)
PROC: B24BZZ4 Ultrasonography of Heart with Aorta, Transesophageal (ICD-10-PCS; 2024-03-21)
PROC: 02100Z9 Bypass Coronary Artery, One Artery from Left Internal Mammary, Open Approach (ICD-10-PCS; principal; 2024-03-21 08:00)
PROC: 0210093 Bypass Coronary Artery, One Artery from Coronary Artery with Autologous Venous Tissue, Open Approach (ICD-10-PCS; 2024-03-21 08:00)
PROC: 02110A3 Bypass Coronary Artery, Two Arteries from Coronary Artery with Autologous Arterial Tissue, Open Approach (ICD-10-PCS; 2024-03-21 08:00)
DX: I25.110 Atherosclerotic heart disease of native coronary artery with unstable angina pectoris (principal); D62 Acute posthemorrhagic anemia; I49.3 Ventricular premature depolarization; E78.5 Hyperlipidemia, unspecified; E11.42 Type 2 diabetes mellitus with diabetic polyneuropathy; T38.3X6A Underdosing of insulin and oral hypoglycemic [antidiabetic] drugs, initial encounter; E66.9 Obesity, unspecified; F10.21 Alcohol dependence, in remission; G47.00 Insomnia, unspecified; Z68.27 Body mass index [BMI] 27.0-27.9, adult; Z79.82 Long term (current) use of aspirin; Z79.899 Other long term (current) drug therapy; Z91.148 Patient's other noncompliance with medication regimen for other reason; Z79.4 Long term (current) use of insulin
CPT/HCPCS: 71045; 71046; 71250; 80048; 80053; 80061; 80074; 82330; 82805; 83036; 83735; 85025; 85027; 85610; 85730; 86850; 86900; 86901; 86920; 87070; 87086; 93005; 93306; 93458; 93880; 93922; 93970; 94002; 94640; 94760; 99285

== ENCOUNTER → 2024-04-09 | Outpatient (CLI) | payer OTHER ==
--- NOTE | 2024-04-09 12:47 | XR ---
EXAMINATION TYPE: XR chest 2V DATE OF EXAM: 04/09/2024 COMPARISON: 03/25/2024 HISTORY: Shortness of breath TECHNIQUE: Frontal and lateral views of the chest are obtained. FINDINGS: Scattered senescent parenchymal changes noted. Hyperinflation compatible with COPD. No evidence for infiltrate. No evidence for atelectasis. Heart size is stable. Mediastinal structures are stable and grossly unremarkable. No evidence for hilar prominence. Degenerative changes dorsal spine. IMPRESSION: 1. No evidence for acute pulmonary disease.
== END | disposition home or self-care (01) ==
LOC: RADXRMAIN 12:24
PROVIDERS: ATTEND Thoracic Surgery (Cardiothoracic Vascular Surgery)
DX: R06.02 Shortness of breath (principal); R07.9 Chest pain, unspecified; R06.4 Hyperventilation
CPT/HCPCS: 71046

== ENCOUNTER → 2024-06-30 | Outpatient (CLI) | payer OTHER ==
[2024-06-30 10:35] LABS: ALT 64 U/L (10-49); AST 29 U/L (14-35); Albumin 4.5 g/dL (3.8-4.9); Albumin/Globulin Ratio 2.14 Ratio (1.60-3.17); Alkaline Phosphatase 69 U/L (41-126); Blood Urea Nitrogen 18.4 mg/dL (9.0-27.0); Calcium 9.5 mg/dL (8.7-10.3); Carbon Dioxide 26.2 mmol/L (21.6-31.8); Chloride 101 mmol/L (96-109); Globulin 2.1 g/dL (1.6-3.3); Glucose 133 mg/dL (70-110); LDL Cholesterol,Calculated 88.9 mg/dL (0.0-131.0); Potassium 4.6 mmol/L (3.5-5.5); Sodium 138 mmol/L (135-145); Total Protein 6.6 g/dL (6.2-8.2); VLDL Calculation 10.02 mg/dL (5.00-40.00)
== END | disposition home or self-care (01) ==
LOC: LABWHC1 07:43
PROVIDERS: ATTEND Internal Medicine Interventional Cardiology
DX: E78.2 Mixed hyperlipidemia (principal)
CPT/HCPCS: 36415; 80053; 80061

== ENCOUNTER → 2024-10-19 | Outpatient (CLI) | payer OTHER ==
[2024-10-19 18:12] LABS: ALT 53 U/L (10-49); AST 30 U/L (14-35); LDL Cholesterol,Calculated 37.7 mg/dL (0.0-131.0)
== END | disposition home or self-care (01) ==
LOC: LABWHC1 08:43
PROVIDERS: ATTEND Internal Medicine Interventional Cardiology
DX: E78.2 Mixed hyperlipidemia (principal)
CPT/HCPCS: 36415; 80061; 84450; 84460